=== PATIENT | male | born 1975 | race Hispanic/Latino ===

== ENCOUNTER 2019-03-22 10:02 | Observation (INO) | payer SELFPAY ==
[2019-03-22 10:53] LABS: Absolute Lymphocytes (CBC) 2.2 K/uL (0.7-4.9); Basophils % 0.7 % (0-1.3); Hematocrit 45.2 % (39.6-49.0); MPV 10.7 fL (7.6-11.3); RBC Red Blood Cell Count 5.03 M/uL (4.33-5.43)
--- NOTE | 2019-03-22 11:04 | RAD REPORT ---
EXAM DESCRIPTION: RAD - Chest Single View - 03/22/2019 10:59 am CLINICAL HISTORY: Chest pain COMPARISON: None. TECHNIQUE: AP portable chest image was obtained 1052 hours . FINDINGS: Lungs are clear. Heart and vasculature are normal. No measurable pleural effusion and no p neumothorax. No acute bony abnormality seen. No acute aortic findings suspected. IMPRESSION: No acute cardiopulmonary process.
--- NOTE | 2019-03-22 11:13 | ER ---
Nurse's Notes [facility] Name: Juwan Clements Age: 43 yrs Sex: Male : 1975 Arrival Date: 03/22/2019 Time: 10:06 Bed 17 Private MD: Diagnosis: Essential (primary) hypertension;Chest pain, unspecified Presentation: 03/22 10:15 Presenting complaint: Patient states: Intermittent Chest pressure/pain started jl7 yesterday, then started having nausea and a hard time swallowing about 10 min ago. Transition of care: patient was not received from another setting of care. Onset of symptoms was March 21, 2019. Risk Assessment: Do you want to hurt yourself or someone else? Patient reports no desire to harm self or others. Initial Sepsis Screen: Does the patient meet any 2 criteria? No. Patient's initial sepsis screen is negative. Does the patient have a suspected source of infection? No. Patient's initial sepsis screen is negative. Care prior to arrival: None. 10:15 Method Of Arrival: Ambulatory [facility] 10:15 Acuity: WALT 3 jl7 Triage Assessment: 10:24 General: Appears in no apparent distress. comfortable, Behavior is cooperative, bp appropriate for age, anxious. Pain: Complains of pain in chest. EENT: No deficits noted. Neuro: No deficits noted. Cardiovascular: Rhythm is sinus rhythm. Respiratory: No deficits noted. GI: No signs and/or symptoms were reported involving the gastrointestinal system. : No signs and/or symptoms were reported regarding the genitourinary system. Derm: No deficits noted. Musculoskeletal: No deficits noted. Historical: - Allergies: 10:18 No Known Allergies; jl7 - PMHx: 10:18 Hypertension; jl7 - PSHx: 10:18 None; jl7 - Immunization history:: Adult Immunizations unknown. - Social history:: Smoking status: unknown. - Ebola Screening: : No symptoms or risks identified at this time. - Family history:: not pertinent. Screenin:26 Abuse screen: Denies threats or abuse. Denies injuries from another. Nutritional bp screening: No deficits noted. Tuberculosis screening: No symptoms or risk factors identified. Fall Risk None identified. Assessment: 10:25 General: SEE TRIAGE NOTE. Pain: Pain does not radiate. Pain began 1 day ago. bp 11:25 Reassessment: DR OSMAN AT B/S FOR ADMIT. bp 13:00 Reassessment: ADMIT IN PROCESS, BED ASSIGNMENT PENDING. bp 14:30 Reassessment: ADMIT COMPLETED. bp Vital Signs: 10:14 BP 117 / 90; Pulse 84; Resp 16 S; Temp 98.5(O); Pulse Ox 97% on R/A; jl7 11:25 BP 119 / 61; Pulse 72; Resp 15; Pulse Ox 98% ; bp 12:30 BP 114 / 86; Pulse 72; Resp 18; Pulse Ox 98% ; bp 13:30 BP 112 / 91; Pulse 70; Resp 18; Pulse Ox 97% ; bp 14:30 BP 111 / 87; Pulse 67; Resp 22; Pulse Ox 98% ; bp ED Course: 10:06 Patient arrived in ED. am2 10:17 Triage completed. jl7 10:18 Arm band placed on right wrist. jl7 10:19 Jerzy Garcia MD is Attending Physician. erendira 10:24 Blas Milner, NEGRO is Primary Nurse. bp 10:26 Patient has correct armband on for positive identification. Bed in low position. Call bp light in reach. Side rails up X2. bus monitor on. Pulse ox on. NIBP on. 10:26 Patient maintains SpO2 saturation greater than 95% on room air. bp 10:37 Initial lab(s) drawn, by me, held in ED. Inserted saline lock: 20 gauge antecubital mh5 area, using aseptic technique. Blood collected. 10:40 sent to lab. 5 10:41 Basic Metabolic Panel Sent. 5 10:41 CBC with Diff Sent. 5 10:41 LFT's Sent. 5 10:41 Magnesium Sent. 5 10:41 NT PRO-BNP Sent. 5 10:41 PT-INR Sent. 5 10:41 Troponin (emerg Dept Use Only) Sent. 5 11:00 XRAY Chest (1 view) In Process Unspecified. EDMS 11:12 Jonnie Solitario MD is Hospitalizing Provider. erendira 14:47 No provider procedures requiring assistance completed. Patient admitted, IV remains in bp place. Administered Medications: 11:00 Drug: Aspirin 162 mg Route: PO; bp 11:46 Follow up: Response: No adverse reaction bp 11:00 Drug: Pepcid 20 mg Route: IVP; Site: right antecubital; bp 11:46 Follow up: Response: No adverse reaction bp 11:00 Drug: Lopressor 25 mg Route: PO; bp 11:46 Follow up: Response: No adverse reaction bp 11:45 Drug: D50W 25 ml Route: IVP; Site: right antecubital; bp Outcome: 11:12 Decision to Hospitalize by Provider. erendira 15:22 Admitted to Tele accompanied by tech, via wheelchair, Report called to cata grayson bp 15:22 Condition: stable 15:24 Patient left the ED. bp Signatures: Dispatcher [employer] EDJerzy Kingston MD MD cha Martinez, Maria 5 Miah Lynn RN RN [id number] Flory Patel Brian RN RN bp
--- NOTE | 2019-03-22 11:14 | EDPHYS ---
Physician Documentation [facility] Name: Juwan Clements Age: 43 yrs Sex: Male : 1975 Arrival Date: 03/22/2019 Time: 10:06 Bed 17 Private MD: ED Physician Jerzy Garcia HPI: 03/22 10:52 This 43 yrs old Male presents to ER via Ambulatory with complaints of Chest erendira Pressure, Difficulty Swallowing, Nausea, Anxiety. 10:52 The patient or guardian reports chest pain that is located primarily in the substernal erendira area, anterior chest wall, bilaterally. Onset: 1 day(s) ago. The pain does not radiate. Associated signs and symptoms: Pertinent positives: shortness of breath. The chest pain is described as a pressure. Modifying factors: The symptoms are alleviated by nothing. the symptoms are aggravated by nothing. Severity of pain: At its worst the pain was mild in the emergency department the pain is unchanged. The patient has not experienced similar symptoms in the past. Historical: - Allergies: 10:18 No Known Allergies; jl7 - PMHx: 10:18 Hypertension; jl7 - PSHx: 10:18 None; jl7 - Immunization history:: Adult Immunizations unknown. - Social history:: Smoking status: unknown. - Ebola Screening: : No symptoms or risks identified at this time. - Family history:: not pertinent. ROS: 10:52 Constitutional: Negative for fever, chills, and weight loss, Eyes: Negative for injury, erendira pain, redness, and discharge, ENT: Negative for injury, pain, and discharge, Neck: Negative for injury, pain, and swelling, Abdomen/GI: Negative for abdominal pain, nausea, vomiting, diarrhea, and constipation, Back: Negative for injury and pain, : Negative for injury, bleeding, discharge, and swelling, MS/Extremity: Negative for injury and deformity, Skin: Negative for injury, rash, and discoloration, Neuro: Negative for headache, weakness, numbness, tingling, and seizure, Psych: Negative for depression, anxiety, suicide ideation, homicidal ideation, and hallucinations, Allergy/Immunology: Negative for hives, rash, and allergies, Endocrine: Negative for neck swelling, polydipsia, polyuria, polyphagia, and marked weight changes, Hematologic/Lymphatic: Negative for swollen nodes, abnormal bleeding, and unusual bruising. 10:52 Constitutional: Positive for dysphagia. 10:52 Respiratory: Positive for shortness of breath. Exam: 10:52 Constitutional: This is a well developed, well nourished patient who is awake, alert, erendira and in no acute distress. Head/Face: Normocephalic, atraumatic. Eyes: Pupils equal round and reactive to light, extra-ocular motions intact. Lids and lashes normal. Conjunctiva and sclera are non-icteric and not injected. Cornea within normal limits. Periorbital areas with no swelling, redness, or edema. ENT: Nares patent. No nasal discharge, no septal abnormalities noted. Tympanic membranes are normal and external auditory canals are clear. Oropharynx with no redness, swelling, or masses, exudates, or evidence of obstruction, uvula midline. Mucous membranes moist. Neck: Trachea midline, no thyromegaly or masses palpated, and no cervical lymphadenopathy. Supple, full range of motion without nuchal rigidity, or vertebral point tenderness. No Meningismus. Chest/axilla: Normal chest wall appearance and motion. Nontender with no deformity. No lesions are appreciated. Cardiovascular: Regular rate and rhythm with a normal S1 and S2. No gallops, murmurs, or rubs. Normal PMI, no JVD. No pulse deficits. Respiratory: Lungs have equal breath sounds bilaterally, clear to auscultation and percussion. No rales, rhonchi or wheezes noted. No increased work of breathing, no retractions or nasal flaring. Abdomen/GI: Soft, non-tender, with normal bowel sounds. No distension or tympany. No guarding or rebound. No evidence of tenderness throughout. Back: No spinal tenderness. No costovertebral tenderness. Full range of motion. Skin: Warm, dry with normal turgor. Normal color with no rashes, no lesions, and no evidence of cellulitis. MS/ Extremity: Pulses equal, no cyanosis. Neurovascular intact. Full, normal range of motion. Neuro: Awake and alert, GCS 15, oriented to person, place, time, and situation. Cranial nerves II-XII grossly intact. Motor strength 5/5 in all extremities. Sensory grossly intact. Cerebellar exam normal. Normal gait. Psych: Awake, alert, with orientation to person, place and time. Behavior, mood, and affect are within normal limits. Vital Signs: 10:14 BP 117 / 90; Pulse 84; Resp 16 S; Temp 98.5(O); Pulse Ox 97% on R/A; jl7 11:25 BP 119 / 61; Pulse 72; Resp 15; Pulse Ox 98% ; bp 12:30 BP 114 / 86; Pulse 72; Resp 18; Pulse Ox 98% ; bp 13:30 BP 112 / 91; Pulse 70; Resp 18; Pulse Ox 97% ; bp 14:30 BP 111 / 87; Pulse 67; Resp 22; Pulse Ox 98% ; bp MDM: 10:19 Patient medically screened. [facility] [place] 10:52 Data reviewed: vital signs, nurses notes, lab test result(s), EKG, radiologic studies, erendira plain films. 03/22 10:39 Order name: Basic Metabolic Panel; Complete Time: 11:30 bp 03/22 10:39 Order name: CBC with Diff; Complete Time: 11:11 bp 03/22 10:39 Order name: LFT's; Complete Time: 11:30 bp 03/22 10:39 Order name: Magnesium; Complete Time: 11:30 bp 03/22 10:39 Order name: NT PRO-BNP; Complete Time: 11:30 bp 03/22 10:39 Order name: PT-INR; Complete Time: 11:11 bp 03/22 10:39 Order name: Troponin (emerg Dept Use Only); Complete Time: 11:30 bp 03/22 10:39 Order name: XRAY Chest (1 view); Complete Time: 11:11 bp 03/22 10:39 Order name: EKG; Complete Time: 10:41 bp 03/22 10:50 Order name: Lipase erendira 03/22 10:39 Order name: Cardiac monitoring; Complete Time: 10:40 bp 03/22 10:39 Order name: EKG - Nurse/Tech; Complete Time: 10:40 bp 03/22 10:39 Order name: IV Saline Lock; Complete Time: 10:40 bp 03/22 10:39 Order name: Labs collected and sent; Complete Time: 10:40 bp 03/22 10:39 Order name: O2 Per Protocol; Complete Time: 10:41 bp 03/22 10:39 Order name: O2 Sat Monitoring; Complete Time: 10:41 bp Administered Medications: 11:00 Drug: Aspirin 162 mg Route: PO; bp 11:46 Follow up: Response: No adverse reaction bp 11:00 Drug: Pepcid 20 mg Route: IVP; Site: right antecubital; bp 11:46 Follow up: Response: No adverse reaction bp 11:00 Drug: Lopressor 25 mg Route: PO; bp 11:46 Follow up: Response: No adverse reaction bp 11:45 Drug: D50W 25 ml Route: IVP; Site: right antecubital; bp Disposition: 03/22/19 11:12 Hospitalization ordered by Jonnie Solitario for Observation. Preliminary diagnosis are Essential (primary) hypertension, Chest pain, unspecified. - Bed requested for Telemetry/MedSurg (observation). - Status is Observation. bp - Condition is Stable. - Problem is new. - Symptoms have improved. UTI on Admission? No Signatures: Dispatcher [employer] EDKatie Navarro RN RN dw Jerzy Garcia MD MD cha Leal, Jahala RN RN jl7 Blas Milner RN RN bp Corrections: (The following items were deleted from the chart) 14:43 11:12 Hospitalization Ordered by Jonnie Solitario MD for Observation. Preliminary diagnosis dw is Essential (primary) hypertension; Chest pain, unspecified. Bed requested for Telemetry/MedSurg (observation). Status is Observation. Condition is Stable. Problem is new. Symptoms have improved. UTI on Admission? No. erendira 15:24 14:43 03/22/2019 11:12 Hospitalization Ordered by Jonnie Solitario MD for Observation. bp Preliminary diagnosis is Essential (primary) hypertension; Chest pain, unspecified. Bed requested for Telemetry/MedSurg (observation). Status is Observation. Condition is Stable. Problem is new. Symptoms have improved. UTI on Admission? No. dw
[2019-03-22 11:17] LABS: ALT/SGPT 53 U/L (12-78); AST/SGOT 32 U/L (15-37); Albumin 3.8 g/dL (3.4-5.0); Alkaline Phosphatase 91 U/L (45-117); BUN Blood Urea Nitrogen 16 mg/dL (7-18); Bicarbonate 26 mmol/L (21-32); Bilirubin Direct 0.2 mg/dL (0-0.2); Bilirubin Total 0.6 mg/dL (0.2-1.0); Glucose Level 68 mg/dL (74-106); Magnesium 2.4 mg/dL (1.8-2.4); NT PRO-BNP 7 pg/mL (<125); Potassium 3.7 mmol/L (3.5-5.1); Protein, Total 7.5 g/dL (6.4-8.2); Sodium Level 140 mmol/L (136-145); Troponin (Emerg Dept Use Only) < 0.02 ng/mL (0.0-0.045)
[2019-03-22] MEDS ORDERED: ASPIRIN EC 81 MG TAB PO ONE (11:19)
[2019-03-22] MEDS ORDERED: METOPROLOL TAR 25 MG TAB ONE (11:19)
[2019-03-22] MEDS ORDERED: FAMOTIDINE 20 MG/2 ML VIAL IV ONE (11:19)
[2019-03-22] MEDS ORDERED: D50W 25 GM/50 ML SYRINGE/VIAL IV ONE (11:51)
[2019-03-22] MEDS ORDERED: MORPHINE 4 MG/ML SYR IV PRN (15:38)
[2019-03-22] MEDS ORDERED: ACETAMINOPHEN 500 MG TAB PO PRN (15:38)
[2019-03-22 15:52] VITALS: BMI 30.5
[2019-03-22] MEDS: METOPROLOL TAR 25 MG TAB PO SCH ×2 (17:00→17:21)
[2019-03-22 20:44] VITALS: O2SAT 96
[2019-03-22] MEDS ORDERED: ATORVASTATIN 40 MG TAB PO SCH (21:00)
--- NOTE | 2019-03-22 21:38 | CON ---
Patient admitted on 03/22/[address] Solitario's service with shortness of breath, atypical chest pain. History Of Present Illness: Mr. Valenzuela is a 43-year-old male. He has a history of hypertension and anxiety. Recently was started on lisinopril. He also takes antianxiety medication. He came in most ly with shortness of breath with exertion. No true chest pain. Rare palpitations. Some nausea, but no vomiting. Denied PND, orthopnea, pedal edema, palpitations, or syncope. He has had some anxiety and stress issues. He denied any fever or chills or cough. Past Medical History: Otherwise negative. Allergies: NONE. Review of Systems: Negative. Social History: Negative. Family History: Noncontributory. Medications: Include lisinopril and Cymbalta. Physical Examination: Vital signs: Stable, afebrile. HEENT: Negative. Neck: Supple without any bruit, lymphadenopathy, JVD, or thyromegaly. Chest: Clear to auscultation and percussion. Cardiac: Revealed a regular rhythm and rate. No murmurs, gallops, or rubs. Abdomen: Benign. Extremities: Revealed no clubbing, cyanosis, or edema. Diagnostic Data: All within normal limit. Impression And Plan: 1.Atypical shortness of breath. 2.Anxiety. 3.Hypertension. I recommended an echocardiogram on Mr. Valenzuela to rule out a cardiomyopathy. I recommended a stress t est to rule out coronary artery disease. We will see what those shows prior to making any final deci abdirizak. I would continue his antianxiety medicine and lisinopril. MARLENE/MODL Voice ID: [id number] Report ID: [id number]
--- NOTE | 2019-03-23 02:41 | HP ---
Date of Admission: 03/22/2019 Chief Complaint: Chest tightness, shortness of breath. Primary Care Physician: Sis Allen. History Of Present Illness: Patient is a 43-year-old male with past medical history of hypertension, major depressive disorder, who was in his usual state of health until day prior to admission when th e patient had sudden onset of chest tightness associated with some shortness of breath. No nausea, v omiting, diaphoresis, or palpitations. The patient's symptoms not improve. No significant alleviati ng factors or aggravating factors. Patient's symptoms are constant, moderate, progressively worsenin g, therefore, he came into the ER for further evaluation. In the ER, his EKG was negative cardiac en zymes. Initial troponin level was negative. Patient was then given aspirin, Pepcid, metoprolol, and then referred for admission. When seen in the ER, he was awake, alert, oriented x3, in some mild di stress. Past Medical History: Hypertension, major depressive disorder. Past Surgical History: None. Allergies: NO KNOWN DRUG ALLERGIES. Medications: Citalopram and lisinopril. Social History: The patient does not smoke. Last drink was 1 month ago. No illicit drug use. Danitza ent is , works is gainfully employed. Family History: States his father and his grandfather on the paternal side both of [place] in their 60s and 80s respectively. Review of Systems: Ten-point system reviewed, negative except as per HPI. Physical Examination: Vital Signs: Temperature 98.5, heart rate 84, blood pressure 117/90, respirations 16, O2 97% on room air. General: Awake, alert, oriented x3, in mild distress. Obese male. HEENT: Normocephalic, atraumatic. PERRLA. EOMI. Moist mucous membranes. Oropharynx is clear. No rmal dentition. Conjunctivae anicteric. Neck: Supple. No JVD. Trachea midline. CV: S1, S2. Regular rate and rhythm. Peripheral pulses present. Respiratory: Moving air well bilaterally. No wheezing or stridor. No use of accessory muscles. Gastrointestinal: Abdomen is soft, nontender, nondistended. Positive bowel sounds. No guarding or rigidity. Extremities: No clubbing, cyanosis, or edema. No calf tenderness. Neuro: Cranial nerves 2 through 12 intact grossly. No focal neurological deficits. Speech is rich l. Skin: No rashes. Normal skin turgor. Psych: Mood is okay. Affect is congruent with mood. Insight and judgment are good. Laboratory Data: Sodium 140, potassium 3.7, chloride 108, CO2 26, BUN 16, creatinine 1.2, glucose 68 , calcium 8.7, magnesium 2.4. Troponin less than 0.02. Lipase 159. INR 1. WBC 6.7, H and H 15.7 a nd 45.2, platelets 177. Chest x-ray personally reviewed shows no acute cardiopulmonary process. Assessment: A 43-year-old male with: 1.Chest pain. Patient has hypertension, history of heart disease, HEART score of 4. We will observ e patient and rule out ACS. We will start on chest pain guidelines. Consult Cardiology. Obtain ech ocardiogram. 2.Essential hypertension. Resume home medications as appropriate. 3.Major depressive disorder. We will continue SSRI. 4.Obesity, BMI 30. Plan: [facility]. /NATALIIA Voice ID: [id number]
[2019-03-23 03:22] LABS: Absolute Lymphocytes (CBC) 3.1 K/uL (0.7-4.9); Basophils % 0.6 % (0-1.3); Hematocrit 45.1 % (39.6-49.0); Lymphocytes % 33.3 % (15.3-44.8); MPV 10.6 fL (7.6-11.3); RBC Red Blood Cell Count 4.97 M/uL (4.33-5.43)
[2019-03-23 03:48] LABS: Potassium 3.8 mmol/L (3.5-5.1)
[2019-03-23] MEDS: METOPROLOL TAR 25 MG TAB PO SCH (05:03)
[2019-03-23] MEDS ORDERED: CITALOPRAM 10 MG TABLET PO SCH (09:00)
[2019-03-23] MEDS ORDERED: lisinopriL 10 MG TAB PO SCH (09:00)
[2019-03-23] MEDS ORDERED: ASPIRIN EC 81 MG TAB PO SCH (09:00)
[2019-03-23] MEDS: ENOXAPARIN 40 MG/0.4 ML SQ SCH ×2 (09:00→10:55)
--- NOTE | 2019-03-23 10:37 | RAD REPORT ---
EXAM DESCRIPTION: NM - Rest Stress Cardiac Imaging - 03/23/2019 10:30 am CLINICAL HISTORY: CP Chest pain. COMPARISON: No comparisons TECHNIQUE: The patient was administered approximately 10mCi of Tc 99m Sestamibi prior to resting SPE CT imaging of the heart. The patient was then administered approximately 30 mCi of Tc 99m Sestamibi f ollowing exercise or pharmacologic stress. Multiplanar SPECT images were reviewed. FINDINGS: No stress induced ischemic defect is seen to suggest stress induced ischemia. No fixed def ect is seen to suggest hibernating myocardium or scarred myocardium. The end diastolic volume is 69 ml, the end systolic volume is 34 ml, and the ejection fraction is 51 %. IMPRESSION: No stress induced ischemia.
--- NOTE | 2019-03-23 10:41 | ECHO ---
HEIGHT: 5 ft 7 in WEIGHT: 194 lb 14.4 oz DATE OF STUDY: 03/23/[address]: Jonnie Solitario MD 2-DIMENSIONAL: YES M.MODE: YES DOPPLER: YES COLOR FLOW: YES TDS: NO PORTABLE: NO DEFINITY: NO BUBBLE STUDY: NO DIAGNOSIS: CHEST PAIN CARDIAC HISTORY: CATHERIZATION: NO SURGERY: NO PROSTHETIC VALVE: NO PACEMAKER: NO MEASUREMENTS (cm) DIASTOLIC (NORMALS) SYSTOLIC (NORMALS) IVSd 0.9 (0.6-1.2) LA Diam 3.3 (1.9-4.0) LVEF 58% LVIDd 4.0 (3.5-5.7) LVIDs 2.8 (2.0-3.5) %FS 30% LVPWd 0.8 (0.6-1.2) Ao Diam 2.7 (2.0-3.7) 2 DIMENSIONAL ASSESSMENT: RIGHT ATRIUM: NORMAL LEFT ATRIUM: NORMAL RIGHT VENTRICLE: NORMAL LEFT VENTRICLE: NORMAL TRICUSPID VALVE: NORMAL MITRAL VALVE: NORMAL PULMONIC VALVE: NORMAL AORTIC VALVE: NORMAL PERICARDIAL EFFUSION: NONE AORTIC ROOT: NORMAL LEFT VENTRICULAR WALL MOTION: NORMAL DOPPLER/COLOR FLOW: NORMAL. COMMENTS: NORMAL 2D ECHO WITH DOPPLER. TECHNOLOGIST: MARY BETH JULES
--- NOTE | 2019-03-23 10:42 | EKG ---
Test Date: 2019-03-22 Test Time: 10:25:47 Senior Sales Manager: JOSE ALEJANDRO MEASUREMENT RESULTS: Intervals: Rate: 67 ME: 178 QRSD: 82 QT: 356 QTc: 376 [place]: P: 43 ME: 178 QRS: 55 T: 43 INTERPRETIVE STATEMENTS: Normal sinus rhythm normal ECG No previous ECG available for comparison Electronically Signed On 03-23-19 10:41:28 SOLE ASSESSOR by Sukhwinder Lynch
--- NOTE | 2019-03-23 10:47 | TREADMILL ---
70% H.R.: 124 85% H.R.: 150 90% H.R.: 159 100% H.R.: 177 DX: CHEST PAIN Date of Study: 03/23/19 Ht: 5 7 Wt: 194 lb 14.4 oz Consulting Physician: MADISON MEDICATIONS: TYLENOL, ASPIRIN, LIPITOR, LOVENOX, CELEXA, PRINIVIL, LOPRESSOR HISTORY: 43 YEAR OLD MALE WITH HISTORY OF HYPERTENSION. COMPLAINTS OF CHEST PRESSURE AND NAUSEA PHYSICIAL EXAMINATION: RESTING B.P.: 122/94 RESTING H.R.: 84 RESTING EKG: NORMAL SINUS RHYTHM PROTOCOL: KATHIE CARDIOLITE EXERCISE TIME: 8:08 MAXIMUM HEART RATE: 179 114 % OF PREDICTED B.P. AT PEAK STRESS: 147/96 H.R. AT 1 MINUTE POST EXERCISE: 153 IMPRESSION: STOPPED FOR TARGET HEART RATE, FATIGUE AND SHORTNESS OF BREATH. NO ARRHYTHMIA NOTED. PATIENT DENIED CHEST PAIN. TOLERATED WELL. NO ST DEPRESSION, NO ARRHYTHMIA, NORMAL STRESS TEST.
[2019-03-23 13:39] VITALS: BP 121/83; TEMP 97.2
--- NOTE | 2019-03-24 03:33 | DS ---
Date of Discharge: 03/23/2019 Consultants: 1.Dr. Lynch, Cardiology. 2.Dr. Amaro, Cardiology. Procedures: Cardiac stress test on 03/23/2019. No stress-induced ischemia. Discharge Diagnoses: 1.Chest pain, acute coronary syndrome ruled out. 2.Essential hypertension, stable. 3.Major depressive disorder, on SSRI. 4.Obesity, body mass index 30. Hospital Course: Patient is a 43-year-old male with past medical history of depression, hypertension , comes in with chest tightness and shortness of breath. Patient was admitted to the hospital for fu rther evaluation. His cardiac enzymes were negative x3. ACS was ruled out. Lipid panel was normal, did show some low HDL at 38. Patient was seen by Cardiology and echocardiogram as well as stress te st was done. Stress test was negative for any stress-induced ischemia. His ejection fraction was 58 %. Patient's symptoms improved, may have been secondary to anxiety with depression versus possible G I-related issues. Patient was cleared for discharge. He needs to follow up with primary care physic ivon in 2-3 days. Will need GI workup to rule out GI causes of atypical chest pain. Follow up with c ardiologist, Dr. Lynch, in 2 weeks. Return to ER for worsening condition. Diet: Heart-healthy, calorie-restricted diet. Activity: As tolerated. Medications: As per medication reconciliation list. Physical Examination: General: Awake, alert, oriented x3, obese male. CV: S1, S2. Respiratory: Moving air well bilaterally. Abdomen: Soft, nontender, nondistended. Positive bowel sounds. Extremities: No clubbing, cyanosis, edema. Neuro: Nonfocal. SA/MODL Voice ID: [id number] Report ID: [id number]
== END 2019-03-23 12:07 | disposition home or self-care (01) ==
LOC: ER 10:02 → ERHOLD 11:33 → 2ND 15:19
PROVIDERS: ADMIT Family Medicine; ATTEND Family Medicine
DX: R07.9 Chest pain, unspecified (principal); I10 Essential (primary) hypertension; F32.9 Major depressive disorder, single episode, unspecified; E66.9 Obesity, unspecified; Z68.30 Body mass index [BMI] 30.0-30.9, adult
CPT/HCPCS: 36415; 71045; 78452; 80048; 80061; 80076; 83690; 83735; 83880; 84484; 85025; 85610; 93005; 93017; 93306; 94760; 96374; 96375; 99285; A9500; G0378; J1650

== ENCOUNTER 2019-07-02 00:29 | Emergency (ER) | payer SELFPAY ==
[2019-07-02] MEDS ORDERED: predniSONE 20 MG TAB ONE (01:05)
[2019-07-02] MEDS ORDERED: AMOX/K CLAV 875 MG TAB ONE (01:06)
--- NOTE | 2019-07-02 01:50 | ER ---
Nurse's Notes [facility] Name: Juwan Clements Age: 43 yrs Sex: Male : 1975 Arrival Date: 07/02/2019 Time: 00:31 Bed 5 Private MD: Diagnosis: Acute pharyngitis;Dyspnea Presentation: 07/01 00:40 Chief complaint: Patient states: sudden Difficulty of breathing at around 2330H. I feel rr5 like anxiety attack. I took citalopram and lisinopril as my regular medicines. denies fever, cough or pain. 00:40 Coronavirus screen: Patient denies fever greater than 100.4F, cough, shortness of rr5 breath, or difficulty breathing. Proceed with normal triage process. Ebola Screen: Patient negative for fever greater than or equal to 101.5 degrees Fahrenheit, and additional compatible Ebola Virus Disease symptoms Patient denies exposure to infectious person. Patient denies travel to an Ebola-affected area in the 21 days before illness onset. Initial Sepsis Screen: Does the patient meet any 2 criteria? No. Patient's initial sepsis screen is negative. Does the patient have a suspected source of infection? No. Patient's initial sepsis screen is negative. Risk Assessment: Do you want to hurt yourself or someone else? Patient reports no desire to harm self or others. Onset of symptoms was July 01, 2019 at 23:30. 00:40 Method Of Arrival: Ambulatory rr5 00:40 Acuity: WALT 4 rr5 01:01 Chief complaint: EMS states: COMPLAINING OF ABDOMINAL PAIN, NAUSEA, VOMITING, AND rv DIARRHEA. WITH HISTORY OF DIVERTICULITIS. PAIN DESCRIBED BLOATEDNESS, 2/10 PAIN SCALE UPON ARRIVAL. GIVEN ZOFRAN BY EMT. Coronavirus screen: Patient denies fever greater than 100.4F, cough, shortness of breath, or difficulty breathing. Proceed with normal triage process. Ebola Screen: No symptoms or risks identified at this time. Initial Sepsis Screen: Does the patient meet any 2 criteria? No. Patient's initial sepsis screen is negative. Does the patient have a suspected source of infection? No. Patient's initial sepsis screen is negative. Risk Assessment: Do you want to hurt yourself or someone else? Patient reports no desire to harm self or others. Onset of symptoms was July 01, 2019 at 21:00. 01:01 Method Of Arrival: EMS: [facility] rv 01: Acuity: WALT 3 rv Triage Assessment: 00:40 General: Appears in no apparent distress. comfortable, Behavior is calm, cooperative, rr5 appropriate for age. Respiratory: Onset: The symptoms/episode began/occurred suddenly, the patient has mild shortness of breath. Historical: - Allergies: 00:40 No Known Allergies; rr5 01:04 No Known Allergies; rv - Home Meds: 00:40 citalopram oral [Active]; Lisinopril Oral [Active]; rr5 - PMHx: 00:40 Hypertension; Anxiety; rr5 01:04 Diabetes - NIDDM; Hyperlipidemia; Hypertension; neuropathy; rv - PSHx: 00:40 None; rr5 01:04 None; rv - Immunization history:: Adult Immunizations not up to date, Adult Immunizations up to date. - Social history:: Smoking status: unknown Patient uses alcohol, occasionally. Patient/guardian denies using street drugs, tobacco products, Smoking status: Patient/guardian denies using tobacco, the patient reports quitting approximately 30 years ago. - Family history:: not pertinent. Screenin:46 Abuse screen: Denies threats or abuse. Denies injuries from another. Nutritional rr5 screening: No deficits noted. Tuberculosis screening: No symptoms or risk factors identified. Fall Risk None identified. Total Pardo Fall Scale indicates No Risk (0-24 pts). Assessment: 00:40 General: Appears in no apparent distress. comfortable, Behavior is calm, cooperative, rr5 appropriate for age. 00:40 Pain: Denies pain. Neuro: Level of Consciousness is awake, alert, obeys commands, rr5 Oriented to person, place, time, situation, Appropriate for age. Cardiovascular: Capillary refill < 3 seconds Patient's skin is warm and dry. Rhythm is regular. Respiratory: Airway is patent Respiratory effort is even, unlabored, Respiratory pattern is regular, symmetrical, Breath sounds are clear bilaterally. GI: No signs and/or symptoms were reported involving the gastrointestinal system. : No signs and/or symptoms were reported regarding the genitourinary system. EENT: Throat is clear with gag reflex present. Derm: Skin is intact, is healthy with good turgor, Skin temperature is warm. Musculoskeletal: Circulation, motion, and sensation intact. Capillary refill < 3 seconds. 00:40 Respiratory: Reports sudden . rr5 Vital Signs: 00:40 BP 134 / 81; Pulse 80; Resp 19; Temp 98.6; Pulse Ox 99% ; Weight 86.18 kg; Height 5 ft. rr5 6 in. (167.64 cm); Pain 0/10; 01:00 BP 132 / 113; Pulse 75; Resp 18; Pulse Ox 98% ; rr5 01:01 BP 160 / 64; Pulse 80; Resp 19; Temp 99; Pulse Ox 98% ; Weight 90.72 kg; Height 5 ft. 9 rv in. (175.26 cm); Pain 2/10; 01:51 BP 129 / 90; Pulse 75; Resp 16; Temp 98.5; Pulse Ox 100% ; rr5 02:35 BP 121 / 84; Pulse 80; Resp 18; Temp 98.4; Pulse Ox 100% on R/A; rv 01:01 Body Mass Index 29.53 (90.72 kg, 175.26 cm) rv ED Course: 00:31 Patient arrived in ED. do 00:32 Vikram Reyes, NEGRO is Primary Nurse. rr5 00:36 Jerzy Garcia MD is Attending Physician. erendira 00:44 Triage completed. rr5 00:44 Arm band placed on right wrist. rr5 00:46 Patient has correct armband on for positive identification. Bed in low position. Call rr5 light in reach. Pulse ox on. NIBP on. 01:40 Chest Single View XRAY In Process Unspecified. EDMS 02:36 No provider procedures requiring assistance completed. Patient did not have IV access rv during this emergency room visit. Administered Medications: 01:03 Drug: predniSONE 40 mg Route: PO; rr5 02:35 Follow up: Response: No adverse reaction rv 01:03 Drug: Augmentin 875 mg Route: PO; rr5 02:35 Follow up: Response: No adverse reaction rv Outcome: 01:49 Discharge ordered by . erendira 02:36 Discharged to home ambulatory. rv 02:36 Condition: good 02:36 Discharge instructions given to patient, Instructed on discharge instructions, follow up and referral plans. medication usage, Demonstrated understanding of instructions, follow-up care, medications, Prescriptions given X 3. 02:36 Patient left the ED. rv Signatures: Dispatcher [employer] EDMS Jerzy Garcia MD MD cha Ogletree Beverly Oneal, Marcell, RN RN rv Reyes, NEGRO Sue RN rr5
--- NOTE | 2019-07-02 01:50 | EDPHYS ---
Physician Documentation [facility] Name: Juwan Clements Age: 43 yrs Sex: Male : 1975 Arrival Date: 07/02/2019 Time: 00:31 Bed 5 Private MD: ED Physician Jerzy Garcia HPI: 07/01 00:58 This 43 yrs old Male presents to ER via Ambulatory with complaints of erendira Breathing Difficulty, Sore Throat. 00:58 The patient has shortness of breath at rest, with light activity. Onset: The erendira symptoms/episode began/occurred 1 day(s) ago. 00:58 The patient presents with sore throat. The patient describes throat pain as raw, erendira scratchy. The patient's shortness of breath has no apparent modifying factors. Severity of symptoms: At their worst the symptoms were mild, in the emergency department the symptoms are unchanged. Severity of symptoms: At their worst the symptoms were mild moderate in the emergency department the symptoms are unchanged. The patient or guardian reports cough, described as mild, difficulty breathing. Historical: - Allergies: 00:40 No Known Allergies; rr5 01:04 No Known Allergies; rv - Home Meds: 00:40 citalopram oral [Active]; Lisinopril Oral [Active]; rr5 - PMHx: 00:40 Hypertension; Anxiety; rr5 01:04 Diabetes - NIDDM; Hyperlipidemia; Hypertension; neuropathy; rv - PSHx: 00:40 None; rr5 01:04 None; rv - Immunization history:: Adult Immunizations not up to date, Adult Immunizations up to date. - Social history:: Smoking status: unknown Patient uses alcohol, occasionally. Patient/guardian denies using street drugs, tobacco products, Smoking status: Patient/guardian denies using tobacco, the patient reports quitting approximately 30 years ago. - Family history:: not pertinent. ROS: 00:58 Constitutional: Negative for fever, chills, and weight loss, Eyes: Negative for injury, erendira pain, redness, and discharge, Neck: Negative for injury, pain, and swelling, Cardiovascular: Negative for chest pain, palpitations, and edema, Abdomen/GI: Negative for abdominal pain, nausea, vomiting, diarrhea, and constipation, Back: Negative for injury and pain, : Negative for injury, bleeding, discharge, and swelling, MS/Extremity: Negative for injury and deformity, Skin: Negative for injury, rash, and discoloration, Neuro: Negative for headache, weakness, numbness, tingling, and seizure, Psych: Negative for depression, anxiety, suicide ideation, homicidal ideation, and hallucinations, Allergy/Immunology: Negative for hives, rash, and allergies, Endocrine: Negative for neck swelling, polydipsia, polyuria, polyphagia, and marked weight changes, Hematologic/Lymphatic: Negative for swollen nodes, abnormal bleeding, and unusual bruising. 00:58 ENT: Positive for sore throat. 00:58 Respiratory: Positive for shortness of breath. Exam: 00:58 Constitutional: This is a well developed, well nourished patient who is awake, alert, erendira and in no acute distress. Head/Face: Normocephalic, atraumatic. Eyes: Pupils equal round and reactive to light, extra-ocular motions intact. Lids and lashes normal. Conjunctiva and sclera are non-icteric and not injected. Cornea within normal limits. Periorbital areas with no swelling, redness, or edema. Neck: Trachea midline, no thyromegaly or masses palpated, and no cervical lymphadenopathy. Supple, full range of motion without nuchal rigidity, or vertebral point tenderness. No Meningismus. Chest/axilla: Normal chest wall appearance and motion. Nontender with no deformity. No lesions are appreciated. Cardiovascular: Regular rate and rhythm with a normal S1 and S2. No gallops, murmurs, or rubs. Normal PMI, no JVD. No pulse deficits. Respiratory: Lungs have equal breath sounds bilaterally, clear to auscultation and percussion. No rales, rhonchi or wheezes noted. No increased work of breathing, no retractions or nasal flaring. Abdomen/GI: Soft, non-tender, with normal bowel sounds. No distension or tympany. No guarding or rebound. No evidence of tenderness throughout. Back: No spinal tenderness. No costovertebral tenderness. Full range of motion. Male : Normal genitalia with no discharge or lesions. Skin: Warm, dry with normal turgor. Normal color with no rashes, no lesions, and no evidence of cellulitis. MS/ Extremity: Pulses equal, no cyanosis. Neurovascular intact. Full, normal range of motion. Neuro: Awake and alert, GCS 15, oriented to person, place, time, and situation. Cranial nerves II-XII grossly intact. Motor strength 5/5 in all extremities. Sensory grossly intact. Cerebellar exam normal. Normal gait. Psych: Awake, alert, with orientation to person, place and time. Behavior, mood, and affect are within normal limits. 00:58 ENT: Posterior pharynx: Airway: normal, no evidence of obstruction, Tonsils: bilaterally enlarged, with erythema, Uvula: midline, edematous, erythema, swelling, that is mild, erythema, that is mild, exudate, is not appreciated, peritonsillar mass, is not appreciated, pooling of secretions, is not appreciated. Vital Signs: 00:40 BP 134 / 81; Pulse 80; Resp 19; Temp 98.6; Pulse Ox 99% ; Weight 86.18 kg; Height 5 ft. rr5 6 in. (167.64 cm); Pain 0/10; 01:00 BP 132 / 113; Pulse 75; Resp 18; Pulse Ox 98% ; rr5 01:01 BP 160 / 64; Pulse 80; Resp 19; Temp 99; Pulse Ox 98% ; Weight 90.72 kg; Height 5 ft. 9 rv in. (175.26 cm); Pain 2/10; 01:51 BP 129 / 90; Pulse 75; Resp 16; Temp 98.5; Pulse Ox 100% ; rr5 02:35 BP 121 / 84; Pulse 80; Resp 18; Temp 98.4; Pulse Ox 100% on R/A; rv 01:01 Body Mass Index 29.53 (90.72 kg, 175.26 cm) rv MDM: 00:36 Patient medically screened. [facility] 01:01 Data reviewed: vital signs, nurses notes. [facility] 07/01 00:55 Order name: Strep [facility] 07/01 00:55 Order name: Influenza Screen (a \T\ B) [facility] 07/01 00:55 Order name: Chest Single View XRAY [facility] 07/01 01:56 Order name: Throat Culture [facility]AL 07/01 01:11 Order name: Blood Glucose Level; Complete Time: 01:[address] [facility] Administered Medications: 01:03 Drug: predniSONE 40 mg Route: PO; rr5 02:35 Follow up: Response: No adverse reaction rv 01:03 Drug: Augmentin 875 mg Route: PO; rr5 02:35 Follow up: Response: No adverse reaction rv Disposition: 07/02/19 01:49 Discharged to Home. Impression: Acute pharyngitis, Dyspnea. - Condition is Stable. - Discharge Instructions: Pharyngitis, Shortness of Breath, Shortness of Breath, [id number], Pharyngitis, Eowd-mv-[id number], Sore Throat, Nnns-vn-Cgqy. - Prescriptions for Augmentin 875- 125 mg Oral Tablet - take 1 tablet by ORAL route every 12 hours for 10 days; 20 tablet. Neeru- D 12 Hour 60-120 mg Oral Tablet Sustained Release 12 hr - take 1 tablet by ORAL route every 12 hours As needed; 14 tablet. Medrol (Marcus) 4 mg Oral Tablets, Dose Pack - take 1 tablet by ORAL route as directed - follow package instructions; 1 packet. - Medication Reconciliation Form, Thank You Letter, Antibiotic Education, Prescription Opioid Use form. - Follow up: Private Physician; When: 2 - 3 days; Reason: Recheck today's complaints, Continuance of care, Re-evaluation by your physician. - Problem is new. - Symptoms have improved. Signatures: Dispatcher [employer] EDAL Jerzy Garcia MD MD cha Vicente, Ronaldo, RN RN Vikram Terrell RN RN rr5 Corrections: (The following items were deleted from the chart) 02:36 01:49 07/02/2019 01:49 Discharged to Home. Impression: Acute pharyngitis; Dyspnea. rv Condition is Stable. Discharge Instructions: Pharyngitis, Shortness of Breath, Shortness of Breath, Wefx-uu-[id number], Pharyngitis, Ficv-ed-Miko, Sore Throat, Ewrc-yg-Rdjw. Prescriptions for Augmentin 875-125 mg Oral Tablet - take 1 tablet by ORAL route every 12 hours for 10 days; 20 tablet, Neeru-D 12 Hour 60-120 mg Oral Tablet Sustained Release 12 hr - take 1 tablet by ORAL route every 12 hours As needed; 14 tablet, Medrol (Marcus) 4 mg Oral Tablets, Dose Pack - take 1 tablet by ORAL route as directed - follow package instructions; 1 packet. and Forms are Medication Reconciliation Form, Thank You Letter, Antibiotic Education, Prescription Opioid Use. Follow up: Private Physician; When: 2 - 3 days; Reason: Recheck today's complaints, Continuance of care, Re-evaluation by your physician. Problem is new. Symptoms have improved. erendira
--- NOTE | 2019-07-02 07:02 | RAD REPORT ---
EXAM DESCRIPTION: RAD - Chest Single View - 07/02/2019 1:14 am CLINICAL HISTORY: COUGH, difficulty breathing COMPARISON: Portable March 22, 2019 TECHNIQUE: AP portable chest image was obtained 07/02/2019 1:14 am . FINDINGS: Lung volumes are low. No peripheral mass, consolidation or pulmonary edema. Heart and vasc ulature are normal. No measurable pleural effusion and no pneumothorax. No acute bony abnormality see n. No acute aortic findings suspected. IMPRESSION: No acute cardiopulmonary process. No significant changes from the prior study.
[2019-07-02 09:33] VITALS: O2SAT 100
[2019-07-02 09:36] VITALS: BP 121/84; TEMP 98.4
== END 2019-07-02 02:36 | disposition home or self-care (01) ==
LOC: ER 00:29
DX: J02.9 Acute pharyngitis, unspecified (principal); R06.00 Dyspnea, unspecified; I10 Essential (primary) hypertension; F41.9 Anxiety disorder, unspecified
CPT/HCPCS: 71045; 82947; 87070; 87081; 87804; 99284; J7512

== ENCOUNTER 2019-10-30 22:52 | Emergency (ER) | payer SELFPAY ==
--- NOTE | 2019-10-30 23:32 | EDPHYS ---
Physician Documentation [facility] Name: Juwan Clements Age: 44 yrs Sex: Male : 1975 Arrival Date: 10/30/2019 Time: 22:54 Bed 26 Private MD: ED Physician Albino Andrade HPI: 10/29 23:21 This 44 yrs old Male presents to ER via Ambulatory with complaints of Anxiety. mh7 23:21 The patient presents to the emergency department with anxiety, over unknown mh7 circumstances. 23:22 Onset: The symptoms/episode began/occurred today. Past psychiatric history: Prior mh7 diagnosis: Anxiety, Psychiatric medications include: Celjayla, Primary psychiatric physician: the patient has not had a prior suicide gesture, the patient does not have a previous inpatient psychiatric history, the patient's last psychiatric treatment was. Associated signs and symptoms: Pertinent positives; anxiety, Pertinent negatives: abdominal pain, chest pain, chills, delusions, depression, fever, hallucinations, headache, homicidal ideation, nausea, night sweats, palpitations, paranoia, shortness of breath, substance abuse, suicide ideation, tremor, vomiting. Severity of symptoms: At their worst the symptoms were moderate today, in the emergency department the symptoms have resolved and did so just prior to arrival. The patient has experienced similar episodes in the past, multiple times. Patient states that he had flare up of his anxiety today. He states that he did not take his Citalopram for the past 2 days because he drank a beer and did not want to mix alcohol with his medication. He denies any headache, chest pain, abdominal pain, SOB, fever, cough, nausea, vomiting, numbness/tingling, or weakness.. Historical: - Allergies: 22:56 No Known Allergies; sg - Home Meds: 23:03 citalopram oral [Active]; lisinopril Oral [Active]; sg - PMHx: 22:56 Anxiety; Hypertension; sg - PSHx: 22:56 None; sg - Immunization history:: Adult Immunizations not up to date. - Social history:: Smoking status: Patient denies any tobacco usage or history of. ROS: 23:22 Constitutional: Negative for fever, chills, and weight loss, Eyes: Negative for injury, mh7 pain, redness, and discharge, ENT: Negative for injury, pain, and discharge, Neck: Negative for injury, pain, and swelling, Cardiovascular: Negative for chest pain, palpitations, and edema, Respiratory: Negative for shortness of breath, cough, wheezing, and pleuritic chest pain, Abdomen/GI: Negative for abdominal pain, nausea, vomiting, diarrhea, and constipation, Back: Negative for injury and pain, : Negative for injury, bleeding, discharge, and swelling, MS/Extremity: Negative for injury and deformity, Skin: Negative for injury, rash, and discoloration, Neuro: Negative for headache, weakness, numbness, tingling, and seizure, Allergy/Immunology: Negative for hives, rash, and allergies, Endocrine: Negative for neck swelling, polydipsia, polyuria, polyphagia, and marked weight changes, Hematologic/Lymphatic: Negative for swollen nodes, abnormal bleeding, and unusual bruising. Exam: 23:22 Constitutional: This is a well developed, well nourished patient who is awake, alert, mh7 and in no acute distress. Head/Face: Normocephalic, atraumatic. Eyes: Pupils equal round and reactive to light, extra-ocular motions intact. Lids and lashes normal. Conjunctiva and sclera are non-icteric and not injected. Cornea within normal limits. Periorbital areas with no swelling, redness, or edema. ENT: Nares patent. No nasal discharge, no septal abnormalities noted. Tympanic membranes are normal and external auditory canals are clear. Oropharynx with no redness, swelling, or masses, exudates, or evidence of obstruction, uvula midline. Mucous membranes moist. Neck: Trachea midline, no thyromegaly or masses palpated, and no cervical lymphadenopathy. Supple, full range of motion without nuchal rigidity, or vertebral point tenderness. No Meningismus. Chest/axilla: Normal chest wall appearance and motion. Nontender with no deformity. No lesions are appreciated. Cardiovascular: Regular rate and rhythm with a normal S1 and S2. No gallops, murmurs, or rubs. Normal PMI, no JVD. No pulse deficits. Respiratory: Lungs have equal breath sounds bilaterally, clear to auscultation and percussion. No rales, rhonchi or wheezes noted. No increased work of breathing, no retractions or nasal flaring. Abdomen/GI: Soft, non-tender, with normal bowel sounds. No distension or tympany. No guarding or rebound. No evidence of tenderness throughout. Back: No spinal tenderness. No costovertebral tenderness. Full range of motion. Skin: Warm, dry with normal turgor. Normal color with no rashes, no lesions, and no evidence of cellulitis. MS/ Extremity: Pulses equal, no cyanosis. Neurovascular intact. Full, normal range of motion. Neuro: Awake and alert, GCS 15, oriented to person, place, time, and situation. Cranial nerves II-XII grossly intact. Motor strength 5/5 in all extremities. Sensory grossly intact. Cerebellar exam normal. Normal gait. Psych: Awake, alert, with orientation to person, place and time. Behavior, mood, and affect are within normal limits. Vital Signs: 22:57 BP 121 / 84; Pulse 58; Resp 18 S; Temp 97.7; Pulse Ox 100% on R/A; Weight 73.48 kg; sg Height 5 ft. 7 in. (170.18 cm); Pain 5/10; 23:38 BP 128 / 84; Pulse 55; Resp 16; Pulse Ox 100% on R/A; Pain 0/10; ls4 22:57 Body Mass Index 25.37 (73.48 kg, 170.18 cm) sg MDM: 23:20 Patient medically screened. [facility] 23:22 Differential diagnosis: drug withdrawal. Anxiety, Alcohol Abuse. Data reviewed: vital [facility] signs, nurses notes. Data interpreted: Pulse oximetry: on room air is 100 %. Interpretation: normal. Counseling: I had a detailed discussion with the patient and/or guardian regarding: the historical points, exam findings, and any diagnostic results supporting the discharge/admit diagnosis, the need for outpatient follow up, to return to the emergency department if symptoms worsen or persist or if there are any questions or concerns that arise at home. Response to treatment: the patient's symptoms have resolved after treatment, the patient's blood pressure is in an acceptable range, mental status has returned to baseline, the patient no longer shows bradycardia, the patient is not short of breath, the patient is not tachycardic, the patient's pain is gone, the patient's temperature has normalized, the patient's condition has returned to base line, the patient is now symptom free. Refusal of service: The patient/guardian displays adequate decision making capability and despite a detailed discussion of alternatives, benefits, risks, and consequences refuses: all lab tests, Medications. Administered Medications: No medications were administered Disposition: 10/30/19 23:31 Discharged to Home. Impression: Anxiety. - Condition is Stable. - Discharge Instructions: Generalized Anxiety Disorder. - Medication Reconciliation Form, Thank You Letter, Antibiotic Education, Prescription Opioid Use form. - Follow up: Private Physician; When: 2 - 3 days; Reason: Worsening of condition, Recheck today's complaints, Continuance of care, Re-evaluation by your physician. - Problem is an acute exacerbation. - Symptoms are resolved. Signatures: Phillip Dewey RN RN sg Soo Jessica RN RN ls4 Albino Andrade MD MD mh7 Corrections: (The following items were deleted from the chart) 23:39 23:31 10/30/2019 23:31 Discharged to Home. Impression: Anxiety. Condition is Stable. ls4 Forms are Medication Reconciliation Form, Thank You Letter, Antibiotic Education, Prescription Opioid Use. Follow up: Private Physician; When: 2 - 3 days; Reason: Worsening of condition, Recheck today's complaints, Continuance of care, Re-evaluation by your physician. Problem is an acute exacerbation. Symptoms are resolved. mh7
--- NOTE | 2019-10-30 23:32 | ER ---
Nurse's Notes [facility] Name: Juwan Clements Age: 44 yrs Sex: Male : 1975 Arrival Date: 10/30/2019 Time: 22:54 Bed 26 Private MD: Diagnosis: Anxiety Presentation: 10/29 22:57 Chief complaint: Patient states: I have had anxiety early this evening, its feeling sg better now, reports having a squeezing sensation in his throat, denies SOB/Cough/Fever/Chills, just reports feeling anxious with no pain in chest, reports slight discomfort in back of neck that went away after popping my neck. pt states not having taken his Citalopram for this sensation, did not state why not. Coronavirus screen: Patient denies a cough. Patient denies shortness of breath or difficulty breathing. Patient denies measured and/or subjective temperature greater than 100.4F prior to today's visit. Patient denies travel on a cruise ship or to a country the [facility]NOTE 3] currently lists as an affected area. Patient denies contact with known and/or suspected case of COVID-19. Patient instructed to continue to wear a mask when interacting with others. Patient moved to private room, placed in contact and droplet isolation with eye protection until further assessment. Ebola Screen: Patient negative for fever greater than or equal to 101.5 degrees Fahrenheit, and additional compatible Ebola Virus Disease symptoms Patient denies exposure to infectious person. Patient denies travel to an Ebola-affected area in the 21 days before illness onset. No symptoms or risks identified at this time. Initial Sepsis Screen: Does the patient meet any 2 criteria? No. Patient's initial sepsis screen is negative. Does the patient have a suspected source of infection? No. Patient's initial sepsis screen is negative. Risk Assessment: Do you want to hurt yourself or someone else? Patient reports no desire to harm self or others. Onset of symptoms was October 30, 2019. Care prior to arrival: None. 22:57 Method Of Arrival: Ambulatory sg 22:57 Acuity: WALT 4 sg Triage Assessment: 23:01 General: Appears in no apparent distress. comfortable, Behavior is calm, cooperative. ls4 Pain: Denies pain. Historical: - Allergies: 22:56 No Known Allergies; sg - Home Meds: 23:03 citalopram oral [Active]; lisinopril Oral [Active]; sg - PMHx: 22:56 Anxiety; Hypertension; sg - PSHx: 22:56 None; sg - Immunization history:: Adult Immunizations not up to date. - Social history:: Smoking status: Patient denies any tobacco usage or history of. Screenin:33 Abuse screen: Denies threats or abuse. Denies injuries from another. Nutritional ls4 screening: No deficits noted. Tuberculosis screening: No symptoms or risk factors identified. Fall Risk None identified. Assessment: 23:33 General: Appears in no apparent distress. comfortable. Neuro: No deficits noted. ls4 Cardiovascular: No deficits noted. Respiratory: No deficits noted. GI: No deficits noted. GI: No signs and/or symptoms were reported involving the gastrointestinal system. : No deficits noted. No signs and/or symptoms were reported regarding the genitourinary system. Derm: Skin is pink, warm \T\ dry. Skin temperature is. Musculoskeletal: No deficits noted. No signs and/or symptoms reported regarding the musculoskeletal system. 23:38 Reassessment: Patient states feeling better. Patient states symptoms have improved. ls4 Vital Signs: 22:57 BP 121 / 84; Pulse 58; Resp 18 S; Temp 97.7; Pulse Ox 100% on R/A; Weight 73.48 kg; sg Height 5 ft. 7 in. (170.18 cm); Pain 5/10; 23:38 BP 128 / 84; Pulse 55; Resp 16; Pulse Ox 100% on R/A; Pain 0/10; ls4 22:57 Body Mass Index 25.37 (73.48 kg, 170.18 cm) ED Course: 22:54 Patient arrived in ED. ds1 22:56 Arm band placed on. sg 23:01 Soo Jessica, RN is Primary Nurse. ls4 23:03 Albino Andrade MD is Attending Physician. 7 23:07 Triage completed. sg 23:34 No provider procedures requiring assistance completed. Patient did not have IV access ls4 during this emergency room visit. Administered Medications: No medications were administered Outcome: 23:31 Discharge ordered by . 7 23:38 Discharged to home ambulatory. ls4 23:38 Condition: good 23:38 Discharge instructions given to patient, family, Instructed on discharge instructions, follow up and referral plans. medication usage, safety practices, Demonstrated understanding of instructions, follow-up care, medications. 23:39 Patient left the ED. ls4 Signatures: Phillip Dewey RN RN sg Sanford, Demi ds1 Soo Jessica RN RN ls4 Albino Andrade MD MD [id number] Corrections: (The following items were deleted from the chart) 23:34 23:33 General: Appears in no apparent distress. comfortable, Behavior is calm, ls4 cooperative, ls4 23:34 23:33 Pain: Denies pain. ls4 ls4
[2019-10-30 23:45] VITALS: TEMP 97.7; O2SAT 100
[2019-10-30 23:46] VITALS: BP 128/84
== END 2019-10-30 23:39 | disposition home or self-care (01) ==
LOC: ER 22:52
DX: F41.9 Anxiety disorder, unspecified (principal); I10 Essential (primary) hypertension
CPT/HCPCS: 99281

== ENCOUNTER 2020-01-22 01:07 | Emergency (ER) | payer SELFPAY ==
--- NOTE | 2020-01-22 03:29 | ER ---
Nurse's Notes [facility] Name: Juwan Clements Age: 44 yrs Sex: Male : 1975 Arrival Date: 01/22/2020 Time: 01:08 Bed 7 Private MD: Diagnosis: Anxiety disorder, unspecified;Essential (primary) hypertension Presentation: 01/21 01:36 Chief complaint: Patient states: I feel very anxious and have a sanchez throat. This tl1 started yesterday and the symptoms are worsening. Coronavirus screen: Client denies travel out of the [place] in the last 14 days. At this time, the client does not indicate any symptoms associated with coronavirus-19. Ebola Screen: Patient negative for fever greater than or equal to 101.5 degrees Fahrenheit, and additional compatible Ebola Virus Disease symptoms Patient denies exposure to infectious person. Patient denies travel to an Ebola-affected area in the 21 days before illness onset. Initial Sepsis Screen: Does the patient meet any 2 criteria? No. Patient's initial sepsis screen is negative. Does the patient have a suspected source of infection? No. Patient's initial sepsis screen is negative. Risk Assessment: Do you want to hurt yourself or someone else? Patient reports no desire to harm self or others. Onset of symptoms was January 20, 2020. 01:36 Method Of Arrival: Ambulatory tl1 01:36 Acuity: WALT 4 tl1 Historical: - Allergies: 01:40 No Known Allergies; tl1 - Home Meds: 01:40 citalopram oral [Active]; lisinopril Oral [Active]; tl1 - PMHx: 01:40 Anxiety; Hypertension; tl1 - PSHx: 01:40 None; tl1 - Immunization history:: Adult Immunizations up to date. - Social history:: Smoking status: Patient denies any tobacco usage or history of. Patient uses alcohol, occasionally. - Family history:: not pertinent. Screenin:41 Abuse screen: Denies threats or abuse. Denies injuries from another. Nutritional rv screening: No deficits noted. Tuberculosis screening: No symptoms or risk factors identified. Fall Risk None identified. Assessment: 02:32 General: Appears in no apparent distress. comfortable, Behavior is calm, cooperative, jb4 appropriate for age. Pain: Denies pain. Neuro: Level of Consciousness is awake, alert, obeys commands, Oriented to person, place, time, situation. Cardiovascular: Patient's skin is warm and dry. Respiratory: Airway is patent Respiratory effort is even, unlabored, Respiratory pattern is regular, symmetrical. GI: No signs and/or symptoms were reported involving the gastrointestinal system. : EENT: No signs and/or symptoms were reported regarding the EENT system. Derm: Skin is intact, Skin is pink, warm \T\ dry. Musculoskeletal: Circulation, motion, and sensation intact. Range of motion: intact in all extremities. Vital Signs: 01:36 BP 124 / 97; Pulse 72; Resp 17; Temp 98.1; Pulse Ox 100% ; Weight 86.18 kg; Height 5 tl1 ft. 6 in. (167.64 cm); Pain 0/10; 01:36 Body Mass Index 30.67 (86.18 kg, 167.64 cm) tl1 ED Course: 01:08 Patient arrived in ED. cl3 01:39 Triage completed. tl1 01:40 Arm band placed on right wrist. tl1 02:09 Jerzy Garcia MD is Attending Physician. erendira 02:11 Ori Talbert, RN is Primary Nurse. jb4 03:00 Patient has correct armband on for positive identification. Pulse ox on. NIBP on. rv 03:07 Chest Single View XRAY In Process Unspecified. EDMS 03:29 Hemal Romero MD is Referral Physician. erendira 03:42 No provider procedures requiring assistance completed. Patient did not have IV access rv during this emergency room visit. Administered Medications: No medications were administered Outcome: 03:29 Discharge ordered by . erendira 03:42 Discharged to home ambulatory. rv 03:42 Condition: good 03:42 Discharge instructions given to patient, Instructed on discharge instructions, follow up and referral plans. medication usage, Demonstrated understanding of instructions, follow-up care, medications, Prescriptions given X 1. 03:42 Patient left the ED. rv Signatures: Dispatcher [employer] EDMS Jerzy Garcia MD MD cha Lasagna, Tonya RN RN tl1 Ori Talbert, RN RN jb4 Marcell Khan RN RN rv Nilson Underwood cl3
--- NOTE | 2020-01-22 03:29 | EDPHYS ---
Physician Documentation [facility] Name: Juwan Clements Age: 44 yrs Sex: Male : 1975 Arrival Date: 01/22/2020 Time: 01:08 Bed 7 Private MD: VALENTINE Physician Jerzy Garcia HPI: 01/21 02:35 This 44 yrs old Male presents to ER via Ambulatory with complaints of Dry erendira Mouth, Anxious. 02:35 The patient presents to the emergency department with anxiety. Onset: The erendira symptoms/episode began/occurred just prior to arrival. Past psychiatric history: Prior diagnosis: anxiety. anxious, mouth dry. Associated signs and symptoms: Pertinent positives; anxiety. Severity of symptoms: At their worst the symptoms were mild in the emergency department the symptoms are unchanged. The patient has experienced similar episodes in the past, multiple times. Historical: - Allergies: 01:40 No Known Allergies; tl1 - Home Meds: 01:40 citalopram oral [Active]; lisinopril Oral [Active]; tl1 - PMHx: 01:40 Anxiety; Hypertension; tl1 - PSHx: 01:40 None; tl1 - Immunization history:: Adult Immunizations up to date. - Social history:: Smoking status: Patient denies any tobacco usage or history of. Patient uses alcohol, occasionally. - Family history:: not pertinent. ROS: 02:35 Constitutional: Negative for fever, chills, and weight loss, Eyes: Negative for injury, erendira pain, redness, and discharge, ENT: Negative for injury, pain, and discharge, Neck: Negative for injury, pain, and swelling, Cardiovascular: Negative for chest pain, palpitations, and edema, Respiratory: Negative for shortness of breath, cough, wheezing, and pleuritic chest pain, Abdomen/GI: Negative for abdominal pain, nausea, vomiting, diarrhea, and constipation, Back: Negative for injury and pain, : Negative for injury, bleeding, discharge, and swelling, MS/Extremity: Negative for injury and deformity, Skin: Negative for injury, rash, and discoloration, Neuro: Negative for headache, weakness, numbness, tingling, and seizure, Allergy/Immunology: Negative for hives, rash, and allergies, Endocrine: Negative for neck swelling, polydipsia, polyuria, polyphagia, and marked weight changes, Hematologic/Lymphatic: Negative for swollen nodes, abnormal bleeding, and unusual bruising. 02:35 Psych: Positive for anxiety. Exam: 02:35 Constitutional: This is a well developed, well nourished patient who is awake, alert, erendira and in no acute distress. Head/Face: Normocephalic, atraumatic. Eyes: Pupils equal round and reactive to light, extra-ocular motions intact. Lids and lashes normal. Conjunctiva and sclera are non-icteric and not injected. Cornea within normal limits. Periorbital areas with no swelling, redness, or edema. ENT: Nares patent. No nasal discharge, no septal abnormalities noted. Tympanic membranes are normal and external auditory canals are clear. Oropharynx with no redness, swelling, or masses, exudates, or evidence of obstruction, uvula midline. Mucous membranes moist. Neck: Trachea midline, no thyromegaly or masses palpated, and no cervical lymphadenopathy. Supple, full range of motion without nuchal rigidity, or vertebral point tenderness. No Meningismus. Chest/axilla: Normal chest wall appearance and motion. Nontender with no deformity. No lesions are appreciated. Cardiovascular: Regular rate and rhythm with a normal S1 and S2. No gallops, murmurs, or rubs. Normal PMI, no JVD. No pulse deficits. Respiratory: Lungs have equal breath sounds bilaterally, clear to auscultation and percussion. No rales, rhonchi or wheezes noted. No increased work of breathing, no retractions or nasal flaring. Abdomen/GI: Soft, non-tender, with normal bowel sounds. No distension or tympany. No guarding or rebound. No evidence of tenderness throughout. Back: No spinal tenderness. No costovertebral tenderness. Full range of motion. Male : Normal genitalia with no discharge or lesions. Skin: Warm, dry with normal turgor. Normal color with no rashes, no lesions, and no evidence of cellulitis. MS/ Extremity: Pulses equal, no cyanosis. Neurovascular intact. Full, normal range of motion. Neuro: Awake and alert, GCS 15, oriented to person, place, time, and situation. Cranial nerves II-XII grossly intact. Motor strength 5/5 in all extremities. Sensory grossly intact. Cerebellar exam normal. Normal gait. Psych: Awake, alert, with orientation to person, place and time. Behavior, mood, and affect are within normal limits. 03:28 ECG was reviewed by the Attending Physician. [facility] Vital Signs: 01:36 BP 124 / 97; Pulse 72; Resp 17; Temp 98.1; Pulse Ox 100% ; Weight 86.18 kg; Height 5 tl1 ft. 6 in. (167.64 cm); Pain 0/10; 01:36 Body Mass Index 30.67 (86.18 kg, 167.64 cm) tl1 MDM: 02:09 Patient medically screened. [facility] 02:38 Differential diagnosis: drug withdrawal. acute psychotic break, depression. Data [facility] reviewed: vital signs, nurses notes, lab test result(s), EKG, radiologic studies. Data interpreted: site monitor: not applicable for this patient encounter. Pulse oximetry: on room air is 100 %. Test interpretation: by ED physician or midlevel provider: ECG, plain radiologic studies. Counseling: I had a detailed discussion with the patient and/or guardian regarding: the historical points, exam findings, and any diagnostic results supporting the discharge/admit diagnosis, lab results, radiology results, the need for outpatient follow up, for definitive care, a family practitioner, a psychiatrist. 01/21 03:29 Order name: Glucose, Ancillary Testing EDMI 01/21 02:33 Order name: Chest Single View XRAY [facility] 01/21 02:33 Order name: Blood Glucose Level; Complete Time: 07:29 [facility] 01/21 02:33 Order name: EKG; Complete Time: 02:34 [facility] 01/21 02:33 Order name: EKG - Nurse/Tech; Complete Time: 07:29 [facility] EC:28 Rate is 60 beats/min. Rhythm is regular. QRS [place] is Normal. MI interval is normal. QRS erendira interval is normal. QT interval is normal. No Q waves. T waves are Normal. No ST changes noted. Clinical impression: Normal ECG and No evidence of ischemia. Interpreted by me. Reviewed by me. Administered Medications: No medications were administered Disposition: 01/22/20 03:29 Discharged to Home. Impression: Anxiety disorder, unspecified, Essential (primary) hypertension. - Condition is Stable. - Discharge Instructions: Panic Attacks, Hypertension, Hypertension, [id number], How to Take Your Blood Pressure, [id number], Panic Attacks, [id number], Aspirin and Your Heart, Managing Your Hypertension. - Prescriptions for Hydroxyzine HCl 25 mg Oral Tablet - take 1 tablet by ORAL route every 6 hours As needed; 30 tablet. - Medication Reconciliation Form, Thank You Letter, Antibiotic Education, Prescription Opioid Use form. - Follow up: Private Physician; When: 2 - 3 days; Reason: Recheck today's complaints, Continuance of care, Re-evaluation by your physician. Follow up: Hemal Romero; When: 2 - 3 days; Reason: Recheck today's complaints, Re-evaluation by your physician. - Problem is new. - Symptoms have improved. Signatures: Dispatcher [employer] EDMS Jerzy Garcia MD MD cha Lasagna, Tonya RN RN tl1 Marcell Khan RN RN rv Corrections: (The following items were deleted from the chart) 03:42 03:29 01/22/2020 03:29 Discharged to Home. Impression: Anxiety disorder, unspecified; rv Essential (primary) hypertension. Condition is Stable. Discharge Instructions: Panic Attacks, Hypertension, Hypertension, [id number], How to Take Your Blood Pressure, Uuzh-[id number], Panic Attacks, Fqmt-[id number], Aspirin and Your Heart, Managing Your Hypertension. Prescriptions for Hydroxyzine HCl 25 mg Oral Tablet - take 1 tablet by ORAL route every 6 hours As needed; 30 tablet. and Forms are Medication Reconciliation Form, Thank You Letter, Antibiotic Education, Prescription Opioid Use. Follow up: Private Physician; When: 2 - 3 days; Reason: Recheck today's complaints, Continuance of care, Re-evaluation by your physician. Follow up: Hemal Romero; When: 2 - 3 days; Reason: Recheck today's complaints, Re-evaluation by your physician. Problem is new. Symptoms have improved. erendira
[2020-01-22 03:47] VITALS: BP 124/97; TEMP 98.1; O2SAT 100
--- NOTE | 2020-01-22 09:11 | RAD REPORT ---
EXAM DESCRIPTION: Ervin Single View01/22/2020 3:07 am CLINICAL HISTORY: Cough COMPARISON: June 2019 FINDINGS: The lungs appear clear of acute infiltrate. The heart is normal size IMPRESSION: No acute abnormalities displayed
== END 2020-01-22 03:42 | disposition home or self-care (01) ==
LOC: ER 01:07
DX: F41.9 Anxiety disorder, unspecified (principal); I10 Essential (primary) hypertension
CPT/HCPCS: 71045; 82947; 93005; 99283

== ENCOUNTER 2020-04-22 00:43 | Emergency (ER) | payer SELFPAY ==
[2020-04-22] MEDS ORDERED: ONDANSETRON 4 MG/2 ML VIAL ONE (02:53)
[2020-04-22] MEDS ORDERED: NA CHLORIDE 0.9% 1,000 ML ONE (02:53)
[2020-04-22] MEDS ORDERED: FAMOTIDINE 20 MG/2 ML VIAL IV ONE (02:53)
[2020-04-22 03:08] LABS: Absolute Lymphocytes (CBC) 2.3 K/uL (0.7-4.9); Basophils % 0.7 % (0-1.3); Hematocrit 45.2 % (39.6-49.0); Lymphocytes % 25.8 % (15.3-44.8); MPV 9.8 fL (7.6-11.3); RBC Red Blood Cell Count 4.91 M/uL (4.33-5.43)
[2020-04-22 03:54] LABS: Bilirubin Direct 0.1 mg/dL (0-0.2); Bilirubin Total 0.5 mg/dL (0.2-1.0); Potassium 4.2 mmol/L (3.5-5.1); Protein, Total 7.6 g/dL (6.4-8.2)
--- NOTE | 2020-04-22 05:38 | EDPHYS ---
Physician Documentation [facility] Name: Juwan Clements Age: 44 yrs Sex: Male : 1975 Arrival Date: 04/22/2020 Time: 00:49 Bed 8 Private MD: Sis Allen C ED Physician Jerzy Garcia HPI: 04/22 03:09 This 44 yrs old Male presents to ER via Unassigned with complaints of erendira Abdominal Pain, Nausea/Vomiting, Abdominal Cramping. 03:09 The patient presents to the emergency department with nausea, vomiting, that is erendira intermittent, described as bilious. Onset: The symptoms/episode began/occurred just prior to arrival, yesterday. Possible causes: unknown. The symptoms are aggravated by nothing. The symptoms are alleviated by nothing. Associated signs and symptoms: The patient has no apparent associated signs or symptoms. Severity of symptoms: At their worst the symptoms were mild. The patient has not experienced similar symptoms in the past. Historical: - Allergies: 01:52 No Known Allergies; sg - PMHx: 01:52 Anxiety; Hypertension; sg - PSHx: 01:52 None; sg - Immunization history:: Adult Immunizations not up to date. - Social history:: Smoking status: Patient denies any tobacco usage or history of. - Family history:: not pertinent. ROS: 03:09 Constitutional: Negative for fever, chills, and weight loss, Eyes: Negative for injury, erendira pain, redness, and discharge, ENT: Negative for injury, pain, and discharge, Neck: Negative for injury, pain, and swelling, Cardiovascular: Negative for chest pain, palpitations, and edema, Respiratory: Negative for shortness of breath, cough, wheezing, and pleuritic chest pain, Back: Negative for injury and pain, : Negative for injury, bleeding, discharge, and swelling, MS/Extremity: Negative for injury and deformity, Skin: Negative for injury, rash, and discoloration, Neuro: Negative for headache, weakness, numbness, tingling, and seizure. 03:09 Abdomen/GI: Positive for abdominal pain, nausea and vomiting, of the epigastric area, right upper quadrant and left upper quadrant. Exam: 03:09 Constitutional: This is a well developed, well nourished patient who is awake, alert, erendira and in no acute distress. Head/Face: Normocephalic, atraumatic. Eyes: Pupils equal round and reactive to light, extra-ocular motions intact. Lids and lashes normal. Conjunctiva and sclera are non-icteric and not injected. Cornea within normal limits. Periorbital areas with no swelling, redness, or edema. ENT: Nares patent. No nasal discharge, no septal abnormalities noted. Tympanic membranes are normal and external auditory canals are clear. Oropharynx with no redness, swelling, or masses, exudates, or evidence of obstruction, uvula midline. Mucous membranes moist. Neck: Trachea midline, no thyromegaly or masses palpated, and no cervical lymphadenopathy. Supple, full range of motion without nuchal rigidity, or vertebral point tenderness. No Meningismus. Chest/axilla: Normal chest wall appearance and motion. Nontender with no deformity. No lesions are appreciated. Cardiovascular: Regular rate and rhythm with a normal S1 and S2. No gallops, murmurs, or rubs. Normal PMI, no JVD. No pulse deficits. Respiratory: Lungs have equal breath sounds bilaterally, clear to auscultation and percussion. No rales, rhonchi or wheezes noted. No increased work of breathing, no retractions or nasal flaring. Back: No spinal tenderness. No costovertebral tenderness. Full range of motion. Male : Normal genitalia with no discharge or lesions. Skin: Warm, dry with normal turgor. Normal color with no rashes, no lesions, and no evidence of cellulitis. MS/ Extremity: Pulses equal, no cyanosis. Neurovascular intact. Full, normal range of motion. Neuro: Awake and alert, GCS 15, oriented to person, place, time, and situation. Cranial nerves II-XII grossly intact. Motor strength 5/5 in all extremities. Sensory grossly intact. Cerebellar exam normal. Normal gait. Psych: Awake, alert, with orientation to person, place and time. Behavior, mood, and affect are within normal limits. 03:09 Abdomen/GI: Inspection: distension, that is mild, Bowel sounds: normal, Palpation: mild abdominal tenderness, in the epigastric area, right upper quadrant and left upper quadrant, Liver: no appreciated palpable abnormalities, Hernia: not appreciated. 03:09 Musculoskeletal/extremity: DVT Exam: No signs of deep vein thrombosis. no pain, no swelling, no tenderness, negative Homans' sign noted on exam, no appreciated bluish discoloration, no erythema, no increased warmth. 04:38 ECG was reviewed by the Attending Physician. [facility] Vital Signs: 02:50 BP 121 / 86; Pulse 86; Resp 18; Temp 98; Pulse Ox 97% ; Weight 86.18 kg; Height 5 ft. 7 ea in. (170.18 cm); 06:00 BP 123 / 87; Pulse 63; Resp 18; Temp 98.2; Pulse Ox 98% ; ea 02:50 Body Mass Index 29.76 (86.18 kg, 170.18 cm) ea MDM: 02:30 Patient medically screened. [facility] 03:12 Differential diagnosis: Nonspecific abd pain, gastritis, cholecystitis, pancreatitis, erendira diverticulitis. Data reviewed: vital signs, nurses notes, lab test result(s), EKG, radiologic studies, CT scan, plain films. Data interpreted: poultry sexer: rate is 82 beats/min, rhythm is regular. Test interpretation: by ED physician or midlevel provider: ECG, plain radiologic studies. Counseling: I had a detailed discussion with the patient and/or guardian regarding: the historical points, exam findings, and any diagnostic results supporting the discharge/admit diagnosis, the presence of at least one elevated blood pressure reading (>120/80) during this emergency department visit, lab results, radiology results, the need for further work-up and treatment in the hospital. 04/22 02:25 Order name: Basic Metabolic Panel; Complete Time: 03:59 [facility] 04/22 02:25 Order name: CBC with Diff; Complete Time: 03:59 [facility] 04/22 02:25 Order name: Hepatic Function; Complete Time: 03:59 [facility] 04/22 02:25 Order name: Lipase; Complete Time: 03:59 [facility] 04/22 03:09 Order name: Chest Single View XRAY [facility] 04/22 03:09 Order name: Troponin (emerg Dept Use Only); Complete Time: 05:36 [facility] 04/22 02:25 Order name: IV Saline Lock; Complete Time: 02:56 [facility] 04/22 02:25 Order name: Labs collected and sent; Complete Time: 02:56 [facility] 04/22 03:09 Order name: EKG; Complete Time: 03:10 [facility] 04/22 03:09 Order name: CT Abd/Pelvis - IV Contrast Only [facility] 04/22 03:09 Order name: EKG - Nurse/Tech; Complete Time: 04:25 [facility] EC:38 Rate is 73 beats/min. Rhythm is regular. QRS [place] is Normal. NC interval is normal. QRS erendira interval is normal. QT interval is normal. No Q waves. T waves are Normal. No ST changes noted. Clinical impression: Normal ECG and No evidence of ischemia. Interpreted by me. Reviewed by me. Administered Medications: 02:56 Drug: Pepcid 20 mg Route: IVP; Site: right antecubital; ea 04:25 Follow up: Response: No adverse reaction ea 02:56 Drug: Zofran (Ondansetron) 4 mg Route: IVP; Site: right antecubital; ea 04:25 Follow up: Response: No adverse reaction ea 02:57 Drug: NS 0.9% 1000 ml Route: IV; Rate: 1 bolus; Site: right antecubital; ea 06:21 Follow up: Response: No adverse reaction; IV Status: Completed infusion; IV Intake: ea 1000ml Disposition: 04/22/20 05:36 Discharged to Home. Impression: Abdominal tenderness, Functional dyspepsia, Cholelithiasis. - Condition is Stable. - Discharge Instructions: Abdominal Pain, Adult, Cholelithiasis, Cholelithiasis, [id number], Abdominal Pain, Adult, [id number]. - Prescriptions for Bentyl 20 mg Oral Tablet - take 1 tablet by ORAL route every 6 hours As needed; 20 tablet. Pepcid 20 mg Oral Tablet - take 1 tablet by ORAL route every 12 hours for 10 days; 20 tablet. Zofran 4 mg Oral Tablet - take 1 tablet by ORAL route every 12 hours As needed; 20 tablet. - Medication Reconciliation Form, Thank You Letter, Antibiotic Education, Prescription Opioid Use, Work release form, SBAR form form. - Follow up: Private Physician; When: 2 - 3 days; Reason: Recheck today's complaints, Continuance of care, Re-evaluation by your physician. Follow up: Ori Ann; When: 2 - 3 days; Reason: Recheck today's complaints, Continuance of care, Re-evaluation by your physician. - Problem is new. - Symptoms have improved. Signatures: Dispatcher [employer] EDMS Dewey, PhillipNEGRO muñoz RN, Corey, MD MD cha Antunez, Elena, RN RN ea Corrections: (The following items were deleted from the chart) 06:27 05:36 04/22/2020 05:36 Discharged to Home. Impression: Abdominal tenderness; Functional ea dyspepsia; Cholelithiasis. Condition is Stable. Discharge Instructions: Abdominal Pain, Adult, Abdominal Pain, Adult, [id number], Cholelithiasis, Cholelithiasis, [id number]. Prescriptions for Bentyl 20 mg Oral Tablet - take 1 tablet by ORAL route every 6 hours As needed; 20 tablet, Pepcid 20 mg Oral Tablet - take 1 tablet by ORAL route every 12 hours for 10 days; 20 tablet, Zofran 4 mg Oral Tablet - take 1 tablet by ORAL route every 12 hours As needed; 20 tablet. and Forms are Medication Reconciliation Form, Thank You Letter, Antibiotic Education, Prescription Opioid Use. Follow up: Private Physician; When: 2 - 3 days; Reason: Recheck today's complaints, Continuance of care, Re-evaluation by your physician. Follow up: Ori Ann; When: 2 - 3 days; Reason: Recheck today's complaints, Continuance of care, Re-evaluation by your physician. Problem is new. Symptoms have improved. erendira
--- NOTE | 2020-04-22 06:18 | EKG ---
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
--- NOTE | 2020-04-22 06:28 | ER ---
Nurse's Notes [facility] Name: Juwan Clements Age: 44 yrs Sex: Male : 1975 Arrival Date: 04/22/2020 Time: 00:49 Bed 8 Private MD: Sis Allen C Diagnosis: Abdominal tenderness;Functional dyspepsia;Cholelithiasis Presentation: 04/22 01:53 Acuity: WALT 3 sg 01:53 Note jordanian speaking only, will obtain audit consultant. sg 02:50 Chief complaint: Patient states: Pt complaining of abdominal cramping and nausea that ea started today. 02:50 Method Of Arrival: Ambulatory ea 02:59 Coronavirus screen: At this time, the client does not indicate any symptoms associated ea with coronavirus-19. Ebola Screen: No symptoms or risks identified at this time. Initial Sepsis Screen: Does the patient meet any 2 criteria? No. Patient's initial sepsis screen is negative. Does the patient have a suspected source of infection? No. Patient's initial sepsis screen is negative. Risk Assessment: Do you want to hurt yourself or someone else? Patient reports no desire to harm self or others. Onset of symptoms was April 22, 2020. Historical: - Allergies: 01:52 No Known Allergies; sg - PMHx: 01:52 Anxiety; Hypertension; sg - PSHx: 01:52 None; sg - Immunization history:: Adult Immunizations not up to date. - Social history:: Smoking status: Patient denies any tobacco usage or history of. - Family history:: not pertinent. Screenin:59 Abuse screen: Denies threats or abuse. Nutritional screening: No deficits noted. ea Tuberculosis screening: No symptoms or risk factors identified. Fall Risk IV access (20 points). Assessment: 02:58 General: Appears uncomfortable, Behavior is appropriate for age. Pain: Complains of ea pain in right upper quadrant and left upper quadrant Pain does not radiate. Quality of pain is described as crampy, Also complains of nausea. Neuro: Level of Consciousness is awake, alert, obeys commands, Oriented to person, place, time, situation. Respiratory: Airway is patent Respiratory effort is even, unlabored, Respiratory pattern is regular, symmetrical. Derm: Skin is pink, warm \T\ dry. 04:00 Reassessment: Patient and/or family updated on plan of care and expected duration. Pain ea level reassessed. Patient is alert, oriented x 3, equal unlabored respirations, skin warm/dry/pink. 06:29 Reassessment: Patient and/or family updated on plan of care and expected duration. Pain ea level reassessed. Patient is alert, oriented x 3, equal unlabored respirations, skin warm/dry/pink. Reassessment: Patient and/or family updated on plan of care and expected duration. Pain level reassessed. Patient is alert, oriented x 3, equal unlabored respirations, skin warm/dry/pink. Discharge instruction given to patient, verbalized the understanding of instruction. pt left ED ambulatory tolerating well. Vital Signs: 02:50 BP 121 / 86; Pulse 86; Resp 18; Temp 98; Pulse Ox 97% ; Weight 86.18 kg; Height 5 ft. 7 ea in. (170.18 cm); 06:00 BP 123 / 87; Pulse 63; Resp 18; Temp 98.2; Pulse Ox 98% ; ea 02:50 Body Mass Index 29.76 (86.18 kg, 170.18 cm) ea ED Course: 00:49 Patient arrived in ED. am2 00:50 Sis Allen FNP is Private Physician. am2 01:53 Triage completed. sg 01:53 Arm band placed on. sg 02:00 No provider procedures requiring assistance completed. ea 02:24 Jerzy Garcia MD is Attending Physician. erendira 02:35 Ruth Morrell, NEGRO is Primary Nurse. ea 03:00 Patient has correct armband on for positive identification. Bed in low position. Call ea light in reach. Side rails up X2. 03:54 Chest Single View XRAY In Process Unspecified. EDMS 05:02 CT Abd/Pelvis - IV Contrast Only In Process Unspecified. EDMS 05:36 Ori Ann MD is Referral Physician. erendira 06:27 IV discontinued, intact, bleeding controlled, No redness/swelling at site. Pressure ea dressing applied. Administered Medications: 02:56 Drug: Pepcid 20 mg Route: IVP; Site: right antecubital; ea 04:25 Follow up: Response: No adverse reaction ea 02:56 Drug: Zofran (Ondansetron) 4 mg Route: IVP; Site: right antecubital; ea 04:25 Follow up: Response: No adverse reaction ea 02:57 Drug: NS 0.9% 1000 ml Route: IV; Rate: 1 bolus; Site: right antecubital; ea 06:21 Follow up: Response: No adverse reaction; IV Status: Completed infusion; IV Intake: ea 1000ml Intake: 06:21 IV: 1000ml; Total: 1000ml. ea Outcome: 05:36 Discharge ordered by MD. krishna 06:26 Discharged to home ambulatory. ea 06:26 Condition: stable 06:26 Discharge instructions given to patient, Instructed on discharge instructions, follow up and referral plans. medication usage, Demonstrated understanding of instructions, follow-up care, medications, Prescriptions given X 4. 06:27 Patient left the ED. ea Signatures: Dispatcher [employer] EDMS Phillip Dewey, RN RN Jerzy Martinez MD MD cha Moreno, Amanda am2 Antunez, Elena, RN RN ea Corrections: (The following items were deleted from the chart) 06:29 05:00 Reassessment: Patient and/or family updated on plan of care and expected ea duration. Pain level reassessed. Patient is alert, oriented x 3, equal unlabored respirations, skin warm/dry/pink. ea 06:29 05:00 Reassessment: Patient and/or family updated on plan of care and expected ea duration. Pain level reassessed. Patient is alert, oriented x 3, equal unlabored respirations, skin warm/dry/pink. Discharge instruction given to patient, verbalized the understanding of instruction. pt left ED ambulatory tolerating well ea
[2020-04-22 06:31] VITALS: BP 121/86; TEMP 98; O2SAT 97
--- NOTE | 2020-04-22 07:53 | RAD REPORT ---
EXAM DESCRIPTION: Ervin Single View04/22/2020 3:55 am CLINICAL HISTORY: Abdominal pain COMPARISON: January 2020 FINDINGS: The lungs appear clear of acute infiltrate. The heart is normal size IMPRESSION: No acute abnormalities displayed
--- NOTE | 2020-04-22 20:45 | RAD REPORT ---
EXAM DESCRIPTION: CT - Abdomen Pelvis W Contrast - 04/22/2020 7:08 am CLINICAL HISTORY: The patient is 44 years old and is Male; ABD PAIN TECHNIQUE: Axial computed tomography images of the abdomen and pelvis with intravenous contrast. S agittal and coronal reformatted images were created and reviewed. This CT exam was performed using one or more of the following dose reduction techniques: automated exposure control, adjustment of t he mA and/or kV according to patient size, and/or use of iterative reconstruction technique. COMPARISON: No relevant prior studies available. FINDINGS: LUNG BASES: Unremarkable. No mass. No consolidation. ABDOMEN: LIVER: The liver is enlarged and diffusely fatty. GALLBLADDER AND BILE DUCTS: Calcified gallstone is present within the gallbladder. There is no du ctal dilatation. PANCREAS: No ductal dilation. No mass. SPLEEN: Unremarkable. ADRENALS: Unremarkable. No mass. KIDNEYS AND URETERS: Unremarkable. The kidneys enhance symmetrically. No obstructing renal or ure teral calculus is seen. No hydronephrosis or hydroureter. No perinephric fluid or stranding. STOMACH AND BOWEL: The stomach is not well distended. The small bowel is normal in caliber. Minim al stool is present throughout the colon. There is no mucosal thickening or evidence of bowel obstruc tion. PELVIS: APPENDIX: The appendix is normal in caliber without surrounding inflammation. BLADDER: Unremarkable. No mass. REPRODUCTIVE: Unremarkable as visualized. ABDOMEN and PELVIS: INTRAPERITONEAL SPACE: Unremarkable. No free air. No significant fluid collection. BONES/JOINTS: No acute fracture. SOFT TISSUES: The soft tissues are normal. VASCULATURE: Unremarkable. No abdominal aortic aneurysm. LYMPH NODES: Unremarkable. No enlarged lymph nodes. IMPRESSION: 1. No acute findings on this contrasted CT of the abdomen and pelvis to explain the pa tient's symptoms. 2. Cholelithiasis without CT evidence to suggest cholecystitis. Electronically signed by: Eri Saleh MD 04/22/2020 5:13 AM HIGH SCHOOL PROFESSIONAL Due to temporary technical issues with the PACS/Fluency reporting system, reports are being signed by the in house radiologists without review as a courtesy to insure prompt reporting. The interpreting radiologist is fully responsible for the content of the report.
== END 2020-04-22 06:27 | disposition home or self-care (01) ==
LOC: ER 00:43
DX: K80.20 Calculus of gallbladder without cholecystitis without obstruction (principal); K30 Functional dyspepsia; I10 Essential (primary) hypertension
CPT/HCPCS: 36415; 71045; 74177; 80048; 80076; 83690; 84484; 85025; 93005; 96361; 96374; 96375; 99283; J2405; J7030; Q9967

== ENCOUNTER 2020-05-24 23:40 | Emergency (ER) | payer SELFPAY ==
[2020-05-25 01:37] LABS: Absolute Lymphocytes (CBC) 2.2 K/uL (0.7-4.9); Basophils % 0.6 % (0-1.3); Hematocrit 44.4 % (39.6-49.0); MPV 9.7 fL (7.6-11.3); RBC Red Blood Cell Count 4.92 M/uL (4.33-5.43)
[2020-05-25 01:48] LABS: BUN Blood Urea Nitrogen 22 mg/dL (7-18); Bicarbonate 25 mmol/L (21-32); Glucose Level 101 mg/dL (74-106); Magnesium 2.4 mg/dL (1.8-2.4); NT PRO-BNP 17 pg/mL (<125); Sodium Level 140 mmol/L (136-145); Troponin (Emerg Dept Use Only) < 0.02 ng/mL (0.0-0.045)
--- NOTE | 2020-05-25 02:03 | EDPHYS ---
Physician Documentation [facility] Name: Juwan Clements Age: 44 yrs Sex: Male : 1975 Arrival Date: 05/24/2020 Time: 23:40 Bed 4 Private MD: ED Physician Sudhakar Pham HPI: 05/25 01:13 This 44 yrs old Male presents to ER via Ambulatory with complaints of rn palpitations. 01:13 The patient presents with a history of heart racing. Context: The symptoms occur at rn rest. Onset: The symptoms/episode began/occurred yesterday. Duration: The patient or guardian reports multiple episodes. Modifying factors: The symptoms are aggravated by nothing. The symptoms are alleviated by nothing. Severity of symptoms: At their worst the symptoms were mild in the emergency department the symptoms have improved. The patient has experienced a previous episode. Reports palpitations, feels like heart racing, began yesterday, has happened before, had heart monitor, and nothing found, denies excessive caffeine/drug use, no ETOH recently. No chest pain. Reports intermittent, feels anxious, tingling of arms, and sometimes feels lightheaded, but no syncope. . Historical: - Allergies: 00:13 No Known Allergies; em - Home Meds: 00:13 citalopram oral [Active]; lisinopril Oral [Active]; em - PMHx: 00:13 Anxiety; Hypertension; em - Immunization history:: Adult Immunizations up to date. - Social history:: Smoking status: Patient denies any tobacco usage or history of. Patient uses alcohol, occasionally. - Family history:: not pertinent. - Hospitalizations: : No recent hospitalization is reported. ROS: 01:13 Constitutional: Negative for fever, chills, and weight loss, Eyes: Negative for injury, rn pain, redness, and discharge, Neck: Negative for injury, pain, and swelling, Cardiovascular: Negative for chest pain, and edema, Respiratory: Negative for shortness of breath, cough, wheezing, and pleuritic chest pain, Abdomen/GI: Negative for abdominal pain, nausea, vomiting, diarrhea, and constipation, Back: Negative for injury and pain, MS/Extremity: Negative for injury and deformity, Skin: Negative for injury, rash, and discoloration, Neuro: Negative for headache, weakness, numbness, tingling, and seizure. Exam: 01:13 Constitutional: This is a well developed, well nourished patient who is awake, alert, rn and in no acute distress. Head/Face: Normocephalic, atraumatic. Eyes: Pupils equal round and reactive to light, extra-ocular motions intact. Lids and lashes normal. Conjunctiva and sclera are non-icteric and not injected. Cornea within normal limits. Periorbital areas with no swelling, redness, or edema. Cardiovascular: Regular rate and rhythm. No pulse deficits. Respiratory: No increased work of breathing, no retractions or nasal flaring. Abdomen/GI: soft, non-tender Skin: Warm, dry with normal turgor. Normal color with no rashes, no lesions, and no evidence of cellulitis. MS/ Extremity: Pulses equal, no cyanosis. Neurovascular intact. Full, normal range of motion. Equal circumference. Neuro: Awake and alert, GCS 15, oriented to person, place, time, and situation. Cranial nerves II-XII grossly intact. Motor strength 5/5 in all extremities. Sensory grossly intact. Cerebellar exam normal. Normal gait. 01:33 ECG was reviewed by the Attending Physician. rn Vital Signs: 00:09 BP 135 / 97; Pulse 91; Resp 18; Temp 98.2; Pulse Ox 98% ; Weight 86.18 kg; Height 5 ft. em 6 in. (167.64 cm); Pain 0/10; 01:15 BP 143 / 99; Pulse 77; Resp 16; Pulse Ox 99% ; rr5 02:06 BP 127 / 97; Pulse 76; Resp 16; Pulse Ox 94% ; ea 00:09 Body Mass Index 30.67 (86.18 kg, 167.64 cm) em MDM: 01:05 Patient medically screened. rn 02:00 Differential diagnosis: arrythmia, dehydration, stress disorder, anxiety. Data rn reviewed: vital signs, nurses notes, lab test result(s), EKG, radiologic studies, plain films, and as a result, I will discharge patient. Counseling: I had a detailed discussion with the patient and/or guardian regarding: the historical points, exam findings, and any diagnostic results supporting the discharge/admit diagnosis, lab results, radiology results, the need for outpatient follow up, to return to the emergency department if symptoms worsen or persist or if there are any questions or concerns that arise at home. Response to treatment: the patient's symptoms have resolved after treatment, the patient's condition has returned to base line, the patient is now symptom free. Special discussion: I discussed with the patient/guardian in detail that at this point there is no indication for admission to the hospital. It is understood, however, that if the symptoms persist or worsen the patient needs to return immediately for re-evaluation. ED course: No episodes of tachycardia or palpitations here, neg bloodwork, no acute findings on ECG, normal CXR, will dc home. . 05/25 01:13 Order name: Basic Metabolic Panel rn 05/25 01:13 Order name: CBC with Diff; Complete Time: 02:00 rn 05/25 01:13 Order name: Magnesium; Complete Time: 02:00 rn 05/25 01:13 Order name: NT PRO-BNP; Complete Time: 02:00 rn 05/25 01:13 Order name: Troponin (emerg Dept Use Only); Complete Time: 02: rn 05/25 01:13 Order name: Basic Metabolic Panel; Complete Time: 02:00 EDMS 05/25 01:13 Order name: XRAY Chest (1 view) rn 05/25 01:13 Order name: EKG; Complete Time: 01: rn 05/25 01:13 Order name: Cardiac monitoring; Complete Time: :15 rn 05/25 01:13 Order name: EKG - Nurse/Tech; Complete Time: :15 05/25 01:13 Order name: IV Saline Lock; Complete Time: :05/25 01:13 Order name: Labs collected and sent; Complete Time: : rn 05/25 01:13 Order name: O2 Per Protocol; Complete Time: :05/25 01:13 Order name: O2 Sat Monitoring; Complete Time: : rn EC:33 Rate is 69 beats/min. Rhythm is regular. QRS [place] is Normal. [place] interval is normal. QRS rn interval is normal. QT interval is normal. No Q waves. T waves are Normal. No ST changes noted. Clinical impression: Normal ECG. Interpreted by me. Reviewed by me. Administered Medications: No medications were administered Disposition: 05/25/20 02:02 Discharged to Home. Impression: Palpitations. - Condition is Stable. - Discharge Instructions: Holter Monitoring, Palpitations. - Medication Reconciliation Form, Thank You Letter, Antibiotic Education, Prescription Opioid Use form. - Follow up: Private Physician; When: As needed; Reason: Recheck today's complaints, Re-evaluation by your physician. Follow up: Hemal Romero MD; When: As needed; Reason: Recheck today's complaints, Re-evaluation by your physician. - Problem is new. - Symptoms have improved. 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 Impression: Palpitations. Condition is rn Stable. Forms are Medication Reconciliation Form, Thank You Letter, Antibiotic Education, Prescription Opioid Use. Follow up: Private Physician; When: As needed; Reason: Recheck today's complaints, Re-evaluation by your physician. Problem is new. Symptoms have improved. rn 02:33 02:18 05/25/2020 02:02 Discharged to Home. Impression: Palpitations. Condition is sg Stable. Discharge Instructions: Holter Monitoring, Palpitations. Forms are Medication Reconciliation Form, Thank You Letter, Antibiotic Education, Prescription Opioid Use. Follow up: Private Physician; When: As needed; Reason: Recheck today's complaints, Re-evaluation by your physician. Follow up: Hemal Romero; When: As needed; Reason: Recheck today's complaints, Re-evaluation by your physician. Problem is new. Symptoms have improved. rn
--- NOTE | 2020-05-25 02:03 | ER ---
Nurse's Notes [facility] Name: Juwan Clements Age: 44 yrs Sex: Male : 1975 Arrival Date: 05/24/2020 Time: 23:40 Bed 4 Private MD: Diagnosis: Palpitations Presentation: 05/25 00:09 Chief complaint: Patient states: feels like he has a fast heartbeat and is nauseated. 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 Coronavirus screen: Client denies travel out of the [place] in the last 14 days. Ebola Screen: Patient negative for fever greater than or equal to 101.5 degrees Fahrenheit, and additional compatible Ebola Virus Disease symptoms Patient denies exposure to infectious person. Patient denies travel to an Ebola-affected area in the 21 days before illness onset. Initial Sepsis Screen: Does the patient meet any 2 criteria? No. Patient's initial sepsis screen is negative. Does the patient have a suspected source of infection? No. Patient's initial sepsis screen is negative. Risk Assessment: Do you want to hurt yourself or someone else? Patient reports no desire to harm self or others. Onset of symptoms was May 25, 2020. 00:09 Method Of Arrival: Ambulatory em 00:09 Acuity: WALT 3 em Historical: - Allergies: 00:13 No Known Allergies; em - Home Meds: 00:13 citalopram oral [Active]; lisinopril Oral [Active]; em - PMHx: 00:13 Anxiety; Hypertension; em - Immunization history:: Adult Immunizations up to date. - Social history:: Smoking status: Patient denies any tobacco usage or history of. Patient uses alcohol, occasionally. - Family history:: not pertinent. - Hospitalizations: : No recent hospitalization is reported. Screenin:15 Abuse screen: Denies threats or abuse. Denies injuries from another. Nutritional rr5 screening: No deficits noted. Tuberculosis screening: No symptoms or risk factors identified. Fall Risk IV access (20 points). Total Pardo Fall Scale indicates No Risk (0-24 pts). Assessment: 01:10 General: Appears in no apparent distress. comfortable, Behavior is calm, cooperative, rr5 appropriate for age. Pain: Denies pain. Neuro: Level of Consciousness is awake, alert, obeys commands, Oriented to person, place, time, situation. Cardiovascular: Reports palpitations, Capillary refill < 3 seconds Patient's skin is warm and dry. Respiratory: Airway is patent Respiratory effort is even, unlabored, Respiratory pattern is regular, symmetrical. GI: Abdomen is round Reports nausea. : No signs and/or symptoms were reported regarding the genitourinary system. EENT: No signs and/or symptoms were reported regarding the EENT system. Derm: Skin is intact, is healthy with good turgor, Skin temperature is warm. Musculoskeletal: Circulation, motion, and sensation intact. Capillary refill < 3 seconds. 02:33 Reassessment: Patient and/or family updated on plan of care and expected duration. Pain ea level reassessed. Patient is alert, oriented x 3, equal unlabored respirations, skin warm/dry/pink. Discharge instruction given to patient, verbalized the understanding of instruction. Pt left ED Ambulatory tolerating well. Vital Signs: 00:09 BP 135 / 97; Pulse 91; Resp 18; Temp 98.2; Pulse Ox 98% ; Weight 86.18 kg; Height 5 ft. em 6 in. (167.64 cm); Pain 0/10; 01:15 BP 143 / 99; Pulse 77; Resp 16; Pulse Ox 99% ; rr5 02:06 BP 127 / 97; Pulse 76; Resp 16; Pulse Ox 94% ; ea 00:09 Body Mass Index 30.67 (86.18 kg, 167.64 cm) em ED Course: 02 23:40 Patient arrived in ED. ag3 02 00:12 Triage completed. em 00:13 Arm band placed on right wrist. em 01:01 Vikram Reyes RN is Primary Nurse. rr5 01:04 Sudhakar Pham MD is Attending Physician. rn 01:10 EKG done, by ED staff, reviewed by Sudhakar Pham MD. rr5 01:12 Inserted saline lock: 20 gauge in right antecubital area, using aseptic technique. rr5 ,using aseptic technique. inserted by mirtha Carvajal Blood collected. 01:15 Patient has correct armband on for positive identification. Placed in gown. Bed in low rr5 position. Call light in reach. Side rails up X2. athletic monitor on. Pulse ox on. NIBP on. 01:21 X-ray(s) taken. rr5 01:36 XRAY Chest (1 view) In Process Unspecified. EDMS 02:18 Hemal Romero MD is Referral Physician. rn 02:33 No provider procedures requiring assistance completed. IV discontinued, intact, ea bleeding controlled, No redness/swelling at site. Pressure dressing applied. Administered Medications: No medications were administered Outcome: 02:02 Discharge ordered by . rn 02:33 Discharged to home ambulatory. ea 02:33 Condition: stable 02:33 Discharge instructions given to patient, Instructed on discharge instructions, follow up and referral plans. Demonstrated understanding of instructions, follow-up care. 02:33 Patient left the ED. sg Signatures: Dispatcher [employer] EDPhillip Werner RN RN Jim Herrera, RN RN Sudhakar Nice MD MD rn Antunez, Elena, RN RN ea Gomez, Alice ag3 Vikram Reyes, RN RN rr5
[2020-05-25 02:37] VITALS: TEMP 98.2
[2020-05-25 02:40] VITALS: BP 127/97; O2SAT 94
--- NOTE | 2020-05-25 14:33 | RAD REPORT ---
EXAM DESCRIPTION: RAD - Chest Single View - 05/25/2020 1:36 am CLINICAL HISTORY: male, PALPITATIONS COMPARISON: Chest radiograph dated 04/22/2020 FINDINGS: No focal lung consolidation. No pleural effusion. No pneumothorax. Cardiomediastinal silhouette is within normal limits. No acute osseous abnormality. IMPRESSION: No acute cardiopulmonary disease. Electronically signed by: Nirav Choi DO 05/25/2020 1:58 AM BUCK PRESSER Due to temporary technical issues with the PACS/Fluency reporting system, reports are being signed by the in house radiologist without review as a courtesy to ensure prompt reporting. The interpreting r adiologist is fully responsible for the content of the report.
== END 2020-05-25 02:33 | disposition home or self-care (01) ==
LOC: ER 23:40
DX: R00.2 Palpitations (principal); I10 Essential (primary) hypertension; F41.9 Anxiety disorder, unspecified
CPT/HCPCS: 36415; 71045; 80048; 83735; 83880; 84484; 85025; 99284

== ENCOUNTER 2020-07-18 20:27 | Emergency (ER) | payer SELFPAY ==
[2020-07-18 23:01] LABS: Absolute Lymphocytes (CBC) 1.9 K/uL (0.7-4.9); Basophils % 0.6 % (0-1.3); Hematocrit 43.6 % (39.6-49.0); Lymphocytes % 21.3 % (15.3-44.8); MPV 10.4 fL (7.6-11.3); RBC Red Blood Cell Count 4.78 M/uL (4.33-5.43)
[2020-07-18] MEDS ORDERED: DIPHENHYDRAMINE 50 MG/ML VIAL ONE (23:06)
[2020-07-18] MEDS ORDERED: NA CHLORIDE 0.9% 500 ML ONE (23:06)
[2020-07-18] MEDS ORDERED: METOCLOPRAMIDE 10 MG/2mL INJ ONE (23:06)
[2020-07-18 23:13] LABS: Albumin 3.9 g/dL (3.4-5.0); Bilirubin Total 0.3 mg/dL (0.2-1.0); Potassium 4.1 mmol/L (3.5-5.1); Protein, Total 7.5 g/dL (6.4-8.2)
--- NOTE | 2020-07-18 23:48 | ER ---
Nurse's Notes [facility] [place] Name: Juwan Clements Age: 44 yrs Sex: Male : 1975 Arrival Date: 07/18/2020 Time: 20:30 Bed 14 Private MD: Diagnosis: Headache Presentation: 07/18 21:06 Chief complaint: Patient states: Pressure on back of my neck and I feel numb on the ca1 back of the L side of my head, started 2 weeks ago. I have a lot os stress so when this happens, I also have difficulty swallowing. HX of stress and is on meds for it. Coronavirus screen: Client denies travel out of the [place] in the last 14 days. headache, Client presents with at least one sign or symptom that may indicate coronavirus-19. Standard/surgical mask placed on the client. Provider contacted for isolation considerations. Ebola Screen: Patient negative for fever greater than or equal to 101.5 degrees Fahrenheit, and additional compatible Ebola Virus Disease symptoms Patient denies exposure to infectious person. Patient denies travel to an Ebola-affected area in the 21 days before illness onset. No symptoms or risks identified at this time. Initial Sepsis Screen: Does the patient meet any 2 criteria? No. Patient's initial sepsis screen is negative. Does the patient have a suspected source of infection? No. Patient's initial sepsis screen is negative. Risk Assessment: Do you want to hurt yourself or someone else? Patient reports no desire to harm self or others. 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 Onset of symptoms was July 18, 2020. 21:06 Method Of Arrival: Ambulatory ca1 21:06 Acuity: WALT 3 ca1 Historical: - Allergies: 21:10 No Known Allergies; ca1 - Home Meds: 21:10 citalopram oral [Active]; lisinopril Oral [Active]; ca1 - PMHx: 21:10 Anxiety; Hypertension; ca1 - PSHx: 21:10 None; ca1 - Immunization history:: Flu vaccine is not up to date. - Social history:: Smoking status: Patient denies any tobacco usage or history of. Screenin:05 Abuse screen: Denies threats or abuse. Nutritional screening: No deficits noted. jb4 Tuberculosis screening: No symptoms or risk factors identified. Fall Risk None identified. Assessment: 22:05 General: Appears in no apparent distress. comfortable, Behavior is calm, cooperative, jb4 appropriate for age. Pain: Complains of pain in neck Pain radiates to base of the skull, left trapezius and right trapezius Pain currently is 4 out of 10 on a pain scale. 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 Full function Gait is steady, Speech is normal, Facial symmetry appears normal, Pupils are PERRLA. Cardiovascular: Patient's skin is warm and dry. Respiratory: Airway is patent Respiratory effort is even, unlabored, Respiratory pattern is regular, symmetrical, Breath sounds are clear bilaterally. GI: No signs and/or symptoms were reported involving the gastrointestinal system. : No signs and/or symptoms were reported regarding the genitourinary system. EENT: No signs and/or symptoms were reported regarding the EENT system. Derm: Skin is intact, Skin is pink, warm \T\ dry. Musculoskeletal: Circulation, motion, and sensation intact. Range of motion: intact in all extremities. 22:53 Reassessment: Patient appears in no apparent distress at this time. Patient and/or jb4 family updated on plan of care and expected duration. Pain level reassessed. Patient is alert, oriented x 3, equal unlabored respirations, skin warm/dry/pink. 07/19 00:07 Reassessment: Patient appears in no apparent distress at this time. Patient and/or jb4 family updated on plan of care and expected duration. Pain level reassessed. Patient is alert, oriented x 3, equal unlabored respirations, skin warm/dry/pink. Patient states feeling better. Patient states symptoms have improved. Vital Signs: 07/18 21:06 BP 121 / 86; Pulse 70; Resp 16 S; Temp 96.9(TE); Pulse Ox 99% on R/A; Weight 86.18 kg ca1 (R); Height 5 ft. 6 in. (167.64 cm) (R); Pain 0/10; 22:05 BP 125 / 91; Pulse 59; Resp 16; Pulse Ox 100% on R/A; jb4 22:45 BP 125 / 93; Pulse 64; Resp 16; Pulse Ox 100% on R/A; jb4 07/19 00:00 BP 110 / 77; Pulse 58; Resp 16; Pulse Ox 100% on R/A; jb4 07/18 21:06 Body Mass Index 30.67 (86.18 kg, 167.64 cm) ca1 ED Course: 07/18 20:30 Patient arrived in ED. ag3 21:10 Triage completed. ca1 21:10 Arm band placed on right wrist. ca1 21:53 Martin Valdez PA is PHCP. [facility] 21:53 Thais Burgos MD is Attending Physician. [facility] 21:55 Ori Talbert, NEGRO is Primary Nurse. jb4 22:05 Patient has correct armband on for positive identification. Bed in low position. Call jb4 light in reach. Side rails up X 1. Pulse ox on. NIBP on. 22:36 CT Head Brain wo Cont In Process Unspecified. EDMS 22:40 Initial lab(s) drawn, by me, sent to lab. Inserted saline lock: 18 gauge in right jb4 antecubital area, using aseptic technique. Blood collected. 23:47 Joseph Wood MD is Referral Physician. [facility] 07/19 00:00 No provider procedures requiring assistance completed. IV discontinued, intact, jb4 bleeding controlled, No redness/swelling at site. Pressure dressing applied. Administered Medications: 07/18 22:52 Drug: diphenhydrAMINE 25 mg Route: IVP; Site: right antecubital; jb4 23:30 Follow up: Response: No adverse reaction; Marked relief of symptoms jb4 22:53 Drug: NS 0.9% 500 ml Route: IV; Rate: bolus; Site: right antecubital; jb4 23:45 Follow up: Response: No adverse reaction; Marked relief of symptoms; IV Status: jb4 Completed infusion; IV Intake: 500ml 22:53 Drug: Reglan (metoCLOPramide) 20 mg {Note: Administerd via 500ml NS bolus.} Route: IVP; jb4 Site: right antecubital; 23:45 Follow up: Response: No adverse reaction; Marked relief of symptoms jb4 Intake: 23:45 IV: 500ml; Total: 500ml. jb4 Outcome: 23:48 Discharge ordered by . [facility] 07/19 00:08 Discharged to home ambulatory. jb4 Condition: stable Discharge instructions given to patient, Instructed on discharge instructions, follow up and referral plans. Demonstrated understanding of instructions, follow-up care. 00:09 Patient left the ED. jb4 Signatures: Dispatcher [employer] EDMartin Mendez PA PA jmm Bryson, James RN RN jb4 Lianne Larsen3 Alysia Lagos RN RN ca1
--- NOTE | 2020-07-18 23:49 | EDPHYS ---
Physician Documentation [facility] Name: Juwan Clements Age: 44 yrs Sex: Male : 1975 Arrival Date: 07/18/2020 Time: 20:30 Bed 14 Private MD: ED Physician Thais Burgos HPI: 07/18 22:11 This 44 yrs old Male presents to ER via Ambulatory with complaints of Headache.jmm 22:11 The patient complains of pain to the left side of the back of head, left occipital area jmm and left base of the skull. Onset: The symptoms/episode began/occurred gradually, 2 week(s) ago. Associated signs and symptoms: Pertinent negatives: altered mental status, dizziness, fever, neck stiffness, paresthesias, Photophobia rash. This is a 44 year old male with a history of htn, anxiety that presents to the ED with complaints of left sided headache which radiates down the left side of the neck. Denies chest pain, shortness of breath. Symptoms began approx 2 weeks ago and is not relieved with otc medicaiton. Patient has had a similar headache in the past and attributes it to anxiety. . Historical: - Allergies: 21:10 No Known Allergies; ca1 - Home Meds: 21:10 citalopram oral [Active]; lisinopril Oral [Active]; ca1 - PMHx: 21:10 Anxiety; Hypertension; ca1 - PSHx: 21:10 None; ca1 - Immunization history:: Flu vaccine is not up to date. - Social history:: Smoking status: Patient denies any tobacco usage or history of. ROS: 22:11 Constitutional: Negative for fever, chills, and weight loss, Cardiovascular: Negative jmm for chest pain, palpitations, and edema, Respiratory: Negative for shortness of breath, cough, wheezing, and pleuritic chest pain. 22:11 Neuro: Positive for headache. 22:11 All other systems are negative. Exam: 22:11 Constitutional: This is a well developed, well nourished patient who is awake, alert, jmm and in no acute distress. Head/Face: atraumatic. Eyes: EOMI, no conjunctival erythema appreciated ENT: Moist Mucus Membranes Neck: Trachea midline, Supple Chest/axilla: Normal chest wall appearance and motion. Cardiovascular: Regular rate and rhythm. No edema appreciated Respiratory: Normal respirations, no respiratory distress appreciated Abdomen/GI: Non distended, soft Back: Normal ROM Skin: General appearance color normal MS/ Extremity: Moves all extremities, no obvious deformities appreciated, no edema noted to the lower extremities Neuro: Awake and alert, normal gait Psych: Behavior is normal, Mood is normal, Patient is cooperative and pleasant Vital Signs: 21:06 BP 121 / 86; Pulse 70; Resp 16 S; Temp 96.9(TE); Pulse Ox 99% on R/A; Weight 86.18 kg ca1 (R); Height 5 ft. 6 in. (167.64 cm) (R); Pain 0/10; 22:05 BP 125 / 91; Pulse 59; Resp 16; Pulse Ox 100% on R/A; jb4 22:45 BP 125 / 93; Pulse 64; Resp 16; Pulse Ox 100% on R/A; jb4 07/19 00:00 BP 110 / 77; Pulse 58; Resp 16; Pulse Ox 100% on R/A; jb4 07/18 21:06 Body Mass Index 30.67 (86.18 kg, 167.64 cm) ca1 MDM: 07/18 22:11 Patient medically screened. [facility] 23:46 Data reviewed: vital signs, nurses notes. Counseling: I had a detailed discussion with alejandra the patient and/or guardian regarding: the historical points, exam findings, and any diagnostic results supporting the discharge/admit diagnosis, lab results, radiology results, the need for outpatient follow up, to return to the emergency department if symptoms worsen or persist or if there are any questions or concerns that arise at home. ED course: COLEMAN relieved in the ED. I do not suspect meningitis, sah at this time. Similar character in the past, afebrile, no nuchal rigidity. patient is advised to follow up with neuro for further evaluation. Patient is otherwise given strict return precautions. patient understood and agrees with the plan of care. . 07/18 22:17 Order name: CBC with Diff; Complete Time: 23:05 [facility] 07/18 22:17 Order name: CMP; Complete Time: 23:17 [facility] 07/18 22:16 Order name: CT Head Brain wo Cont [facility] 07/18 22:17 Order name: Saline Lock; Complete Time: 22:42 jmm Administered Medications: 22:52 Drug: diphenhydrAMINE 25 mg Route: IVP; Site: right antecubital; jb4 23:30 Follow up: Response: No adverse reaction; Marked relief of symptoms jb4 22:53 Drug: NS 0.9% 500 ml Route: IV; Rate: bolus; Site: right antecubital; jb4 23:45 Follow up: Response: No adverse reaction; Marked relief of symptoms; IV Status: jb4 Completed infusion; IV Intake: 500ml 22:53 Drug: Reglan (metoCLOPramide) 20 mg {Note: Administerd via 500ml NS bolus.} Route: IVP; jb4 Site: right antecubital; 23:45 Follow up: Response: No adverse reaction; Marked relief of symptoms jb4 Disposition: 07/19 00:47 Co-signature as Attending Physician, Thais Burgos MD. [email or web address] Disposition: 07/18/20 23:48 Discharged to Home. Impression: Headache. - Condition is Stable. - Discharge Instructions: General Headache Without Cause. - Medication Reconciliation Form, Thank You Letter, Antibiotic Education, Prescription Opioid Use form. - Follow up: Joseph Wood MD; When: 2 - 3 days; Reason: Recheck today's complaints, Continuance of care, Re-evaluation by your physician. Signatures: Dispatcher [employer] EDMS Martin Valdez PA PA jmm Bryson, James, RN RN jbThais Cole MD MD ma2 Acob, Cheryl, RN RN ca1 Corrections: (The following items were deleted from the chart) 00:09 07/18 23:48 07/18/2020 23:48 Discharged to Home. Impression: Headache. Condition is jb4 Stable. Forms are Medication Reconciliation Form, Thank You Letter, Antibiotic Education, Prescription Opioid Use. Follow up: Joseph Wood; When: 2 - 3 days; Reason: Recheck today's complaints, Continuance of care, Re-evaluation by your physician. alejandra
[2020-07-19 00:20] VITALS: TEMP 96.9
[2020-07-19 00:21] VITALS: O2SAT 100
[2020-07-19 00:24] VITALS: BP 110/77
--- NOTE | 2020-07-19 14:14 | RAD REPORT ---
EXAM DESCRIPTION: CT HEAD WITHOUT IV CONTRAST CLINICAL HISTORY: Male, 44 years old, left sided headache COMPARISON: None. TECHNIQUE: CT acquisition of the head without contrast. Coronal and sagittal reformatted images prov ided. This exam was performed according to departmental dose-optimization program which includes auto mated exposure control, adjustment of the mA and/or kV according to patient size, and/or use of itera tive reconstruction technique. FINDINGS: No intracranial hemorrhage or extraaxial fluid collection. No mass effect or midline shift. Ventricles, cisterns, and sulci are normal in size and configuration. Brain parenchymal attenuation and early-white matter differentiation are within normal limits. The calvarium and imaged facial bones are intact. Overlying soft tissues are normal. Paranasal sinuses and mastoid cells are clear. Orbits are unremarkable. IMPRESSION: No acute intracranial findings. Electronically signed by: Phillip Oakley MD 07/18/2020 10:43 PM CDT Due to temporary technical issues with the PACS/Fluency reporting system, reports are being signed by the in house radiologists without review as a courtesy to insure prompt reporting. The interpreting radiologist is fully responsible for the content of the report.
== END 2020-07-19 00:09 | disposition home or self-care (01) ==
LOC: ER 20:27
DX: R51.9 Headache, unspecified (principal); F41.9 Anxiety disorder, unspecified; I10 Essential (primary) hypertension
CPT/HCPCS: 36415; 70450; 80053; 85025; 96361; 96374; 96375; 99284; J1200; J2765; J7040

== ENCOUNTER 2020-08-19 23:44 | Emergency (ER) | payer SELFPAY ==
[2020-08-20 01:08] LABS: Absolute Lymphocytes (CBC) 2.2 K/uL (0.7-4.9); Basophils % 0.7 % (0-1.3); Hematocrit 43.2 % (39.6-49.0); Lymphocytes % 29.1 % (15.3-44.8); MPV 10.1 fL (7.6-11.3)
[2020-08-20 01:14] LABS: Protime INR 0.95
[2020-08-20] MEDS ORDERED: DIPHENHYDRAMINE 50 MG/ML VIAL ONE (01:28)
[2020-08-20] MEDS ORDERED: NA CHLORIDE 0.9% 1,000 ML ONE (01:28)
[2020-08-20] MEDS ORDERED: METOCLOPRAMIDE 10 MG/2mL INJ ONE (01:28)
[2020-08-20 01:34] LABS: ALT/SGPT 46 U/L (12-78); AST/SGOT 29 U/L (15-37); Albumin 3.9 g/dL (3.4-5.0); Alkaline Phosphatase 85 U/L (45-117); BUN Blood Urea Nitrogen 17 mg/dL (7-18); Bicarbonate 28 mmol/L (21-32); Bilirubin Direct < 0.1 mg/dL (0-0.2); Bilirubin Total 0.3 mg/dL (0.2-1.0); Glucose Level 100 mg/dL (74-106); Magnesium 2.4 mg/dL (1.8-2.4); NT PRO-BNP 11 pg/mL (<125); Potassium 3.9 mmol/L (3.5-5.1); Protein, Total 7.5 g/dL (6.4-8.2); Sodium Level 140 mmol/L (136-145); Troponin (Emerg Dept Use Only) < 0.02 ng/mL (0.0-0.045)
[2020-08-20 03:19] LABS: Urine Blood Negative (Negative); Urine Glucose Negative (Negative); Urine Protein Negative (Negative); Urine pH 6.5 (5.0-7.0)
[2020-08-20 03:40] LABS: Barbiturates NEGATIVE (NEGATIVE); Benzodiazepines NEGATIVE (NEGATIVE); Cocaine NEGATIVE (NEGATIVE); METHAMPHETAM NEGATIVE (NEGATIVE); Methadone NEGATIVE (NEGATIVE); Opiates NEGATIVE (NEGATIVE); Phencyclidine NEGATIVE (NEGATIVE); THC Cannibis NEGATIVE (NEGATIVE)
--- NOTE | 2020-08-20 03:58 | EDPHYS ---
Physician Documentation [facility] Name: Juwan Clements Age: 44 yrs Sex: Male : 1975 Arrival Date: 08/20/2020 Time: 00:04 Bed 16 Private MD: ED Physician Albino Andrade HPI: 08/20 01:00 This 44 yrs old Male presents to ER via Ambulatory with complaints of Headache.mh7 01:01 The patient complains of pain to the left side of the back of head. The patient mh7 describes the headache as intermittent, throbbing. Onset: The symptoms/episode began/occurred 1 week(s) ago. 01:02 Associated signs and symptoms: Pertinent positives: intermittent palpitations, mh7 intermittent feeling of tongue swelling, Pertinent negatives: altered mental status, dizziness, fever, malaise, nausea, neck stiffness, paresthesias, Photophobia rash, sinus congestion, sinus tenderness, vision changes, vision loss, vomiting, weakness, vertigo. Severity of symptoms: At its worst the pain was moderate, 4 day(s) ago, in the emergency department the pain has improved, moderately. Headache History: The patient has had previous headaches and this one is similar to previous episodes. Historical: - Allergies: 00:17 No Known Allergies; iw - Home Meds: 00:17 Lisinopril Oral once daily [Active]; citalopram oral once daily [Active]; iw - PMHx: 00:17 Anxiety; Hypertension; iw - PSHx: 00:17 None; iw - Immunization history:: Adult Immunizations not immunized, Client reports having NOT received the Covid vaccine. - Social history:: Smoking status: Patient denies any tobacco usage or history of. ROS: 01:02 Constitutional: Negative for fever, chills, and weight loss, Eyes: Negative for injury, mh7 pain, redness, and discharge, Neck: Negative for injury, pain, and swelling, Respiratory: Negative for shortness of breath, cough, wheezing, and pleuritic chest pain, Abdomen/GI: Negative for abdominal pain, nausea, vomiting, diarrhea, and constipation, : Negative for injury, bleeding, discharge, and swelling, MS/Extremity: Negative for injury and deformity, Skin: Negative for injury, rash, and discoloration, Neuro: Negative for headache, weakness, numbness, tingling, and seizure, Psych: Negative for depression, anxiety, suicide ideation, homicidal ideation, and hallucinations, Allergy/Immunology: Negative for hives, rash, and allergies, Endocrine: Negative for neck swelling, polydipsia, polyuria, polyphagia, and marked weight changes, Hematologic/Lymphatic: Negative for swollen nodes, abnormal bleeding, and unusual bruising. Exam: 01:02 Constitutional: This is a well developed, well nourished patient who is awake, alert, mh7 and in no acute distress. Head/Face: Normocephalic, atraumatic. Eyes: Pupils equal round and reactive to light, extra-ocular motions intact. Lids and lashes normal. Conjunctiva and sclera are non-icteric and not injected. Cornea within normal limits. Periorbital areas with no swelling, redness, or edema. ENT: Nares patent. No nasal discharge, no septal abnormalities noted. Tympanic membranes are normal and external auditory canals are clear. Oropharynx with no redness, swelling, or masses, exudates, or evidence of obstruction, uvula midline. Mucous membranes moist. Neck: Trachea midline, no thyromegaly or masses palpated, and no cervical lymphadenopathy. Supple, full range of motion without nuchal rigidity, or vertebral point tenderness. No Meningismus. Chest/axilla: Normal chest wall appearance and motion. Nontender with no deformity. No lesions are appreciated. Cardiovascular: Regular rate and rhythm with a normal S1 and S2. No gallops, murmurs, or rubs. Normal PMI, no JVD. No pulse deficits. Respiratory: Lungs have equal breath sounds bilaterally, clear to auscultation and percussion. No rales, rhonchi or wheezes noted. No increased work of breathing, no retractions or nasal flaring. Abdomen/GI: Soft, non-tender, with normal bowel sounds. No distension or tympany. No guarding or rebound. No evidence of tenderness throughout. Back: No spinal tenderness. No costovertebral tenderness. Full range of motion. Skin: Warm, dry with normal turgor. Normal color with no rashes, no lesions, and no evidence of cellulitis. MS/ Extremity: Pulses equal, no cyanosis. Neurovascular intact. Full, normal range of motion. Neuro: Awake and alert, GCS 15, oriented to person, place, time, and situation. Cranial nerves II-XII grossly intact. Motor strength 5/5 in all extremities. Sensory grossly intact. Cerebellar exam normal. Normal gait. Psych: Awake, alert, with orientation to person, place and time. Behavior, mood, and affect are within normal limits. Vital Signs: 00:14 BP 112 / 82; Pulse 74; Resp 16; Temp 97.2; Pulse Ox 99% ; Weight 81.65 kg; Height 5 ft. iw 6 in. (167.64 cm); 00:45 BP 110 / 80; Pulse 78; Resp 16; Temp 98.7; Pulse Ox 98% ; Pain 0/10; cr4 02:00 BP 99 / 10; Pulse 59; Resp 15; Pulse Ox 99% ; Pain 0/10; cr4 03:00 BP 102 / 69; Pulse 59; Resp 14; Pulse Ox 99% ; Pain 0/10; cr4 04:00 BP 104 / 66; Pulse 59; Resp 16; Temp 97.7; Pulse Ox 100% ; Pain 0/10; cr4 00:14 Body Mass Index 29.05 (81.65 kg, 167.64 cm) iw Ftauma Coma Score: 03:55 Eye Response: spontaneous(4). Verbal Response: oriented(5). Motor Response: obeys mh7 commands(6). Total: 15. MDM: 03:55 Differential diagnosis: cluster headache, migraine, tension headache. Data reviewed: [facility] vital signs, nurses notes, old medical records, lab test result(s), cardiac enzymes, CBC, electrolytes, urinalysis, urine drug screen. Data interpreted: Pulse oximetry: on room air is 98 %. Interpretation: normal. Counseling: I had a detailed discussion with the patient and/or guardian regarding: the historical points, exam findings, and any diagnostic results supporting the discharge/admit diagnosis, lab results, radiology results, the need for outpatient follow up, to return to the emergency department if symptoms worsen or persist or if there are any questions or concerns that arise at home. Response to treatment: the patient's symptoms have resolved after treatment, the patient's blood pressure is in an acceptable range, mental status has returned to baseline, the patient no longer shows bradycardia, the patient is not short of breath, the patient is not tachycardic, the patient's pain is gone, the patient's temperature has normalized. 03:57 Patient medically screened. [facility] 08/20 00:37 Order name: Basic Metabolic Panel [facility] 08/20 00:37 Order name: CBC with Diff [facility] 08/20 00:37 Order name: LFT's [facility] 08/20 00:37 Order name: Magnesium [facility] 08/20 00:37 Order name: NT PRO-BNP; Complete Time: 01:35 [facility] 08/20 00:37 Order name: PT-INR; Complete Time: 01:35 [facility] 08/20 00:37 Order name: Troponin (emerg Dept Use Only); Complete Time: 01:35 [facility] 08/20 00:38 Order name: Basic Metabolic Panel; Complete Time: 01:35 [facility] 08/20 00:38 Order name: CBC with Automated Diff; Complete Time: :35 [facility] 08/20 00:38 Order name: Liver (Hepatic) Function; Complete Time: 01:35 [facility] 08/20 00:38 Order name: Magnesium; Complete Time: 01:35 [facility] 08/20 01:35 Order name: UDS; Complete Time: 03:49 [facility] 08/20 02:42 Order name: TSH [facility] 08/20 02:42 Order name: D-Dimer [facility] 08/20 00:37 Order name: XRAY Chest (1 view) [facility] 08/20 00:37 Order name: EKG; Complete Time: 00:38 [facility] 08/20 00:37 Order name: Cardiac monitoring; Complete Time: 01:28 [facility] 08/20 00:37 Order name: EKG - Nurse/Tech; Complete Time: 01:00 [facility] 08/20 00:37 Order name: IV Saline Lock; Complete Time: 01:00 [facility] 08/20 00:37 Order name: Labs collected and sent; Complete Time: 01:00 [facility] 08/20 00:37 Order name: O2 Per Protocol; Complete Time: 01:28 [facility] 08/20 00:37 Order name: O2 Sat Monitoring; Complete Time: 01:28 [facility] 08/20 01:35 Order name: Urine Dipstick-Ancillary (obtain specimen); Complete Time: 03:20 [facility] 08/20 02:42 Order name: Thyroid Stimulating Hormone; Complete Time: 03:21 [facility] 08/20 02:42 Order name: D-Dimer; Complete Time: 03:15 EDMS 08/20 03:18 Order name: Urine Dipstick-Ancillary; Complete Time: : EDMS Administered Medications: 01:20 Drug: NS 0.9% 1000 ml Route: IV; Rate: 1000 ml; Site: left antecubital; cr4 02:30 Follow up: IV Status: Completed infusion; IV Intake: 1000ml cr4 01:20 Drug: Reglan (metoCLOPramide) 10 mg Route: IVP; Site: left antecubital; cr4 01:20 Follow up: Response: No adverse reaction cr4 01:20 Drug: Benadryl (diphenhydrAMINE) 25 mg Route: IVP; Site: left antecubital; cr4 01:30 Follow up: Response: No adverse reaction cr4 Disposition: 08/20/20 03:57 Discharged to Home. Impression: Headache, Palpitations. - Condition is Stable. - Discharge Instructions: Palpitations, [id number], General Headache Without Cause, [id number]. - Medication Reconciliation Form, Thank You Letter, Antibiotic Education, Prescription Opioid Use form. - Follow up: Private Physician; When: 1 - 2 days; Reason: Worsening of condition, Recheck today's complaints, Continuance of care, Re-evaluation by your physician. Follow up: Derek Amaro MD; When: 1 - 2 days; Reason: Worsening of condition, Recheck today's complaints. Follow up: Joseph Wood MD; When: 1 - 2 days; Reason: Worsening of condition, Recheck today's complaints. - Problem is an acute exacerbation. - Symptoms have improved. Signatures: Dispatcher [employer] EDOK Isabel Paulino RN RN Joanie Hutchison RN RN cr4 Albino Andrade MD MD 7 Corrections: (The following items were deleted from the chart) 03:58 03:57 08/20/2020 03:57 Discharged to Home. Impression: Headache; Palpitations. mh7 Condition is Stable. Forms are Medication Reconciliation Form, Thank You Letter, Antibiotic Education, Prescription Opioid Use. Follow up: Private Physician; When: 1 - 2 days; Reason: Worsening of condition, Recheck today's complaints, Continuance of care, Re-evaluation by your physician. Problem is an acute exacerbation. Symptoms have improved. mh7 04:27 03:58 08/20/2020 03:57 Discharged to Home. Impression: Headache; Palpitations. cr4 Condition is Stable. Discharge Instructions: Palpitations, [id number], General Headache Without Cause, [id number]. Forms are Medication Reconciliation Form, Thank You Letter, Antibiotic Education, Prescription Opioid Use. Follow up: Private Physician; When: 1 - 2 days; Reason: Worsening of condition, Recheck today's complaints, Continuance of care, Re-evaluation by your physician. Follow up: Derek Amaro; When: 1 - 2 days; Reason: Worsening of condition, Recheck today's complaints. Follow up: Joseph Wood; When: 1 - 2 days; Reason: Worsening of condition, Recheck today's complaints. Problem is an acute exacerbation. Symptoms have improved. 7
--- NOTE | 2020-08-20 03:58 | ER ---
Nurse's Notes [facility] Name: Juwan Clements Age: 44 yrs Sex: Male : 1975 Arrival Date: 08/20/2020 Time: 00:04 Bed 16 Private MD: Diagnosis: Headache;Palpitations Presentation: 08/20 00:14 Chief complaint: Patient states: pain to back of head, intermittent X 1 week, tongue iw feels swollen like it's going to the back of his throat X 1 week , also has pain o miah flank area X 3 days , also has dry mouth , chills and dizzy. Coronavirus screen: Client presents with at least one sign or symptom that may indicate coronavirus-19. Ebola Screen: Patient negative for fever greater than or equal to 101.5 degrees Fahrenheit, and additional compatible Ebola Virus Disease symptoms Patient denies exposure to infectious person. Patient denies travel to an Ebola-affected area in the 21 days before illness onset. No symptoms or risks identified at this time. Initial Sepsis Screen: Does the patient meet any 2 criteria? No. Patient's initial sepsis screen is negative. Does the patient have a suspected source of infection? No. Patient's initial sepsis screen is negative. Risk Assessment: Do you want to hurt yourself or someone else? Patient reports no desire to harm self or others. Onset of symptoms was August 13, 2020. 00:14 Method Of Arrival: Ambulatory iw 00:14 Acuity: WALT 3 iw Triage Assessment: 04:26 Headache History: The patient has had previous headaches and this one is similar to cr4 previous episodes. Pain: Also complains of. Historical: - Allergies: 00:17 No Known Allergies; iw - Home Meds: 00:17 Lisinopril Oral once daily [Active]; citalopram oral once daily [Active]; iw - PMHx: 00:17 Anxiety; Hypertension; iw - PSHx: 00:17 None; iw - Immunization history:: Adult Immunizations not immunized, Client reports having NOT received the Covid vaccine. - Social history:: Smoking status: Patient denies any tobacco usage or history of. Screenin:25 Abuse screen: Denies threats or abuse. Nutritional screening: No deficits noted. cr4 Tuberculosis screening: No symptoms or risk factors identified. Fall Risk None identified. Assessment: 00:45 General: Appears in no apparent distress. comfortable, Behavior is calm, cooperative, cr4 appropriate for age. Pain: Denies pain. Neuro: Level of Consciousness is awake, alert, obeys commands, Oriented to person, place, time, Appropriate for age Moves all extremities. Reports dizziness, 2 hours before arriving to the ER, Denies weakness difficulty swallowing, numbness headache. Cardiovascular: Reports palpitations, since 2 hours before arriving to ER that lasted a couple of minutes. Heart tones S1 S2 Capillary refill < 3 seconds Rhythm is regular. Cardiovascular: Parent/caregiver reports patient has had palpitations, since 2 hours before ER arrival that lasted a couple of minutes. Respiratory: Breath sounds are clear bilaterally. Denies shortness of breath labored breathing, pain with respiration. GI: Patient currently denies nausea, vomiting. : No deficits noted. EENT: Reports ringing in left ear that lasted a couple of minutes 2 hours before arrival to the ER.. Denies photophobia difficulty swallowing. Derm: No deficits noted. Musculoskeletal: No deficits noted. 02:00 Reassessment: No changes from previously documented assessment. Patient and/or family cr4 updated on plan of care and expected duration. Pain level reassessed. Cardiovascular: Denies chest pain, lightheadedness, nausea, palpitations, shortness of breath, syncope. 03:00 Reassessment: No changes from previously documented assessment. Patient and/or family cr4 updated on plan of care and expected duration. Pain level reassessed. Patient denies pain at this time. Cardiovascular: Denies chest pain, palpitations, shortness of breath, syncope. 04:00 Reassessment: No changes from previously documented assessment. Patient and/or family cr4 updated on plan of care and expected duration. Pain level reassessed. Cardiovascular: Denies chest pain, lightheadedness, nausea, palpitations, shortness of breath. Vital Signs: 00:14 BP 112 / 82; Pulse 74; Resp 16; Temp 97.2; Pulse Ox 99% ; Weight 81.65 kg; Height 5 ft. iw 6 in. (167.64 cm); 00:45 BP 110 / 80; Pulse 78; Resp 16; Temp 98.7; Pulse Ox 98% ; Pain 0/10; cr4 02:00 BP 99 / 10; Pulse 59; Resp 15; Pulse Ox 99% ; Pain 0/10; cr4 03:00 BP 102 / 69; Pulse 59; Resp 14; Pulse Ox 99% ; Pain 0/10; cr4 04:00 BP 104 / 66; Pulse 59; Resp 16; Temp 97.7; Pulse Ox 100% ; Pain 0/10; cr4 00:14 Body Mass Index 29.05 (81.65 kg, 167.64 cm) iw [place] Coma Score: 03:55 Eye Response: spontaneous(4). Verbal Response: oriented(5). Motor Response: obeys mh7 commands(6). Total: 15. ED Course: 00:04 Patient arrived in ED. am4 00:16 Triage completed. iw 00:17 Arm band placed on. iw 00:20 Albino Andrade MD is Attending Physician. mh7 00:50 Inserted saline lock: 20 gauge in left antecubital area, using aseptic technique. cr4 00:59 Joanie Hutchison, NEGRO is Primary Nurse. cr4 01:07 XRAY Chest (1 view) In Process Unspecified. EDMS 01:28 Basic Metabolic Panel Sent. cr4 01:29 Patient has correct armband on for positive identification. Bed in low position. Side cr4 rails up X 1. shelter monitor on. Pulse ox on. NIBP on. 01:29 No provider procedures requiring assistance completed. cr4 03:58 Derek Amaro MD is Referral Physician. mh7 03:58 Joseph Wood MD is Referral Physician. mh7 04:25 IV discontinued, intact, bleeding controlled, No redness/swelling at site. cr4 Administered Medications: 01:20 Drug: NS 0.9% 1000 ml Route: IV; Rate: 1000 ml; Site: left antecubital; cr4 02:30 Follow up: IV Status: Completed infusion; IV Intake: 1000ml cr4 01:20 Drug: Reglan (metoCLOPramide) 10 mg Route: IVP; Site: left antecubital; cr4 01:20 Follow up: Response: No adverse reaction cr4 01:20 Drug: Benadryl (diphenhydrAMINE) 25 mg Route: IVP; Site: left antecubital; cr4 01:30 Follow up: Response: No adverse reaction cr4 Intake: 02:30 IV: 1000ml; Total: 1000ml. cr4 Outcome: 03:57 Discharge ordered by . edgardo 04:25 Discharged to home ambulatory. cr4 04:25 Condition: stable 04:25 Discharge instructions given to patient, Instructed on discharge instructions, follow up and referral plans. Demonstrated understanding of instructions, follow-up care. 04:27 Patient left the ED. cr4 Signatures: Dispatcher [employer] Isabel Yin RN RN iw Joanie Hutchison RN RN cr4 Albino Andrade MD MD mh7 Martinez, Ashley am
[2020-08-20 04:41] VITALS: BP 104/66; TEMP 97.7; O2SAT 100
--- NOTE | 2020-08-20 07:51 | RAD REPORT ---
EXAM DESCRIPTION: Ervin Single View08/20/2020 1:01 am CLINICAL HISTORY: Palpitation COMPARISON: May 2020 FINDINGS: The lungs appear clear of acute infiltrate. The heart is normal size IMPRESSION: No acute abnormalities displayed
== END 2020-08-20 04:27 | disposition home or self-care (01) ==
LOC: ER 23:44
DX: R00.2 Palpitations (principal); I10 Essential (primary) hypertension; F41.9 Anxiety disorder, unspecified
CPT/HCPCS: 36415; 71045; 80048; 80076; 80307; 81003; 83735; 83880; 84443; 84484; 85025; 85379; 85610; 93005; 96361; 96374; 96375; 99284; J1200; J2765; J7030

== ENCOUNTER 2020-10-04 23:21 | Emergency (ER) | payer SELFPAY ==
[2020-10-05] MEDS ORDERED: LORAZEPAM 1 MG TABLET ONE (00:34)
--- NOTE | 2020-10-05 00:48 | ER ---
Nurse's Notes [facility] Name: Juwan Clements Age: 45 yrs Sex: Male : 1975 Arrival Date: 10/04/2020 Time: 23:25 Bed 18 Private MD: Diagnosis: Anxiety disorder, unspecified;Headache Presentation: 10/04 23:30 Chief complaint: Patient states: Reports pain to back of neck, reports he is having a ea hard time sleeping. Reports he saw his doctor today for sleep medication. Reports that he is scared to take the medication due to his anxiety. Coronavirus screen: At this time, the client does not indicate any symptoms associated with coronavirus-19. Ebola Screen: No symptoms or risks identified at this time. Initial Sepsis Screen: Does the patient meet any 2 criteria? No. Patient's initial sepsis screen is negative. Does the patient have a suspected source of infection? No. Patient's initial sepsis screen is negative. Risk Assessment: Do you want to hurt yourself or someone else? Patient reports no desire to harm self or others. Onset of symptoms was October 04, 2020. 23:30 Method Of Arrival: Ambulatory ea 23:30 Acuity: WALT 3 ea Historical: - Allergies: 23:33 No Known Allergies; ea - PMHx: 23:33 Hypertension; Anxiety; ea - Immunization history:: Adult Immunizations up to date. - Social history:: Smoking status: Patient denies any tobacco usage or history of. Screenin:32 Abuse screen: Denies threats or abuse. Nutritional screening: No deficits noted. ea Tuberculosis screening: No symptoms or risk factors identified. Fall Risk None identified. Assessment: 10/05 00:05 General: Appears in no apparent distress. Behavior is calm, cooperative, appropriate ea for age. Pain: Complains of pain in left side of head. Neuro: Level of Consciousness is awake, alert, obeys commands, Oriented to person, place, time. 00:54 Reassessment: Patient and/or family updated on plan of care and expected duration. Pain ea level reassessed. Patient is alert, oriented x 3, equal unlabored respirations, skin warm/dry/pink. Discharge instruction given to patient verbalized the understanding of instruction. Pt left ED ambulatory tolerating well. Vital Signs: 10/04 23:36 BP 110 / 77; Pulse 67; Resp 18; Temp 97.2; Pulse Ox 98% ; Weight 81.65 kg; Height 5 ft. ea 6 in. (167.64 cm); 23:36 Body Mass Index 29.05 (81.65 kg, 167.64 cm) ea ED Course: 23:25 Patient arrived in ED. es 23:32 Triage completed. ea 23:32 Patient has correct armband on for positive identification. Bed in low position. Call ea light in reach. Side rails up X2. 23:50 Jerzy Venegas PA is PHCP. cp 23:50 Thais Burgos MD is Attending Physician. 10/05 00:05 Ruth Morrell, NEGRO is Primary Nurse. ea 00:05 Arm band placed on right wrist. Patient placed in an exam room, on a stretcher, on ea pulse oximetry. 00:33 CT Head Brain wo Cont In Process Unspecified. EDMS 00:55 No provider procedures requiring assistance completed. Patient did not have IV access ea during this emergency room visit. Administered Medications: 00:15 Drug: Ativan (LORazepam) 1 mg Route: PO; ea 00:55 Follow up: Response: No adverse reaction ea Outcome: 00:47 Discharge ordered by MD. cp 00:55 Discharged to home ambulatory, with family. ea 00:55 Condition: stable 00:55 Discharge instructions given to patient, Instructed on discharge instructions, follow up and referral plans. medication usage, Demonstrated understanding of instructions, follow-up care, medications, Prescriptions given X 1. 00:55 Patient left the ED. ea Signatures: Dispatcher [employer] EDDC Karen Whitman Jerzy Venegas PA PA cp Antunez, Elena, RN RN ea
--- NOTE | 2020-10-05 00:49 | EDPHYS ---
Physician Documentation [facility] Name: Juwan Clements Age: 45 yrs Sex: Male : 1975 Arrival Date: 10/04/2020 Time: 23:25 Bed 18 Private MD: ED Physician Thais Burgos HPI: 10/05 00:15 This 45 yrs old Male presents to ER via Ambulatory with complaints of Neck cp Problem, Sore Throat, Headache, Breathing Difficulty. 00:15 The patient complains of pain to the left occipital area and left base of the skull. cp The patient describes the headache as aching, waxing and waning. Onset: The symptoms/episode began/occurred for years. Associated signs and symptoms: Pertinent positives: neck pain, Pertinent negatives: fever, neck stiffness, paresthesias. 00:15 Severity of symptoms: in the emergency department the pain a " 5" out of "10". cp 00:15 Patient reports history of anxiety and reports headache worsens when he feels like he cp is having an anxiety attack. Notices difficulty swallowing, shortness of breath. Patient reports pcp, Magdalene Allen, prescribed citalopram in the past but medication caused him to be drowsy. Patient reports stopping medication and being prescribed Seroquel today which he has not started. Historical: - Allergies: 10/04 23:33 No Known Allergies; ea - PMHx: 23:33 Hypertension; Anxiety; ea - Immunization history:: Adult Immunizations up to date. - Social history:: Smoking status: Patient denies any tobacco usage or history of. ROS: 10/05 00:20 Constitutional: Negative for body aches, chills, fever, poor PO intake. cp 00:20 Eyes: Negative for injury, pain, redness, and discharge. cp 00:20 ENT: Negative for ear pain, sore throat, difficulty swallowing, difficulty handling secretions. 00:20 Cardiovascular: Negative for chest pain, edema, palpitations. 00:20 Respiratory: Negative for cough, wheezing. 00:20 Abdomen/GI: Negative for abdominal pain, vomiting, diarrhea, constipation. 00:20 Neuro: Positive for headache, Negative for altered mental status, numbness, tingling, weakness. 00:20 Psych: Positive for anxiety, Negative for depression, suicide gesture, suicidal ideation. 00:20 All other systems are negative. Exam: 00:25 Constitutional: The patient appears in no acute distress, alert, awake, non-toxic, well cp developed, well nourished. 00:25 Head/Face: Normocephalic, atraumatic. cp 00:25 Eyes: Periorbital structures: appear normal, Pupils: equal, round, and reactive to light and accomodation, Extraocular movements: intact throughout, Conjunctiva: normal, no exudate, no injection, Sclera: no appreciated abnormality, Lids and lashes: appear normal, bilaterally. 00:25 ENT: External ear(s): are unremarkable, Ear canal(s): are normal, clear, TM's: dullness, bilaterally, Nose: is normal, Mouth: Lips: moist, Oral mucosa: moist, Posterior pharynx: Airway: no evidence of obstruction, patent. 00:25 Neck: ROM/movement: is normal, is supple, no range of motions limitations, pain, is not appreciated, limited range of motion, is not appreciated. 00:25 Chest/axilla: Inspection: normal. 00:25 Cardiovascular: Rate: normal, Rhythm: regular. 00:25 Respiratory: the patient does not display signs of respiratory distress, Respirations: normal, no use of accessory muscles, no retractions, labored breathing, is not present, Breath sounds: are clear throughout, no decreased breath sounds. 00:25 Abdomen/GI: Exam negative for discomfort, distension, guarding, Inspection: abdomen appears normal. 00:25 Neuro: Orientation: to person, place \\T\\ time. Mentation: is normal, Cerebellar function: is grossly normal, Motor: moves all fours, strength is normal, Sensation: no obvious gross deficits, Gait: is steady. Vital Signs: 10/04 23:36 BP 110 / 77; Pulse 67; Resp 18; Temp 97.2; Pulse Ox 98% ; Weight 81.65 kg; Height 5 ft. ea 6 in. (167.64 cm); 23:36 Body Mass Index 29.05 (81.65 kg, 167.64 cm) ea MDM: 10/05 00:05 Patient medically screened. cp 00:46 Data reviewed: vital signs, nurses notes, radiologic studies, CT scan. ED course: cp review of [place] prescription monitor website pina not show any results for patient. 10/05 00:07 Order name: CT Head Brain wo Cont cp Administered Medications: 00:15 Drug: Ativan (LORazepam) 1 mg Route: PO; ea 00:55 Follow up: Response: No adverse reaction [place] Disposition: 19:58 Co-signature as Attending Physician, Thais Burgos MD. ma2 Disposition Summary: 10/05/20 00:47 Discharge Ordered Location: Home cp Problem: an ongoing problem cp Symptoms: have improved cp Condition: Stable cp Diagnosis - Anxiety disorder, unspecified cp - Headache cp Followup: cp - With: Private Physician - When: 1 - 2 days - Reason: Recheck today's complaints Discharge Instructions: - Discharge Summary Sheet cp - General Headache Without Cause cp - Generalized Anxiety Disorder, Adult cp Forms: - Medication Reconciliation Form cp - Thank You Letter cp - Antibiotic Education cp - Prescription Opioid Use cp Prescriptions: - Ativan 1 mg Oral Tablet - take 1 tablet by ORAL route every 12 hours As needed; 10 tablet; Refills: 0, cp Product Selection Permitted Signatures: Dispatcher [employer] EDMS Jerzy Venegas PA PA cp Antunez, Elena, RN Thais Hays ea, MD MD ma2 Corrections: (The following items were deleted from the chart) 00:25 00:23 This 45 yrs old Male presents to ER via Ambulatory with complaints of cp Neck Problem, Sore Throat, Headache, Breathing Difficulty. cp
[2020-10-05 01:09] VITALS: BP 110/77; TEMP 97.2; O2SAT 98
--- NOTE | 2020-10-05 13:55 | RAD REPORT ---
EXAM DESCRIPTION: CT - Head Brain Wo Cont - 10/05/2020 6:30 am CLINICAL HISTORY: HEADACHE. TECHNIQUE: Axial, coronal, and sagittal images through the brain were performed in the absence of in travenous contrast. This exam was performed according to our departmental dose-optimization program w hich includes use of Automated Exposure Control, adjustment of the mA and/or kV according to patient size and/or use of iterative reconstruction technique. COMPARISON: None. FINDINGS: The brain parenchyma appears unremarkable. There is no intra-axial or extra-axial bleed se en. There is no mass or mass effect. The ventricles are normal in size shape and configuration. The o rbital contents appear unremarkable. The visualized paranasal sinuses and mastoid air cells are patent. No acute fracture is identified. IMPRESSION: No acute intracranial abnormality identified. Electronically signed by: Natalee Mcgregor MD 10/05/2020 12:36 AM CDT Due to temporary technical issues with the PACS/Fluency reporting system, reports are being signed by the in house radiologists without review as a courtesy to insure prompt reporting. The interpreting radiologist is fully responsible for the content of the report
== END 2020-10-05 00:55 | disposition home or self-care (01) ==
LOC: ER 23:21
DX: F41.9 Anxiety disorder, unspecified (principal); I10 Essential (primary) hypertension
CPT/HCPCS: 70450; 99284

== ENCOUNTER 2020-10-07 00:54 | Emergency (ER) | payer SELFPAY ==
[2020-10-07] MEDS ORDERED: DIAZEPAM 5 MG TABLET ONE (01:38)
--- NOTE | 2020-10-07 01:44 | EDPHYS ---
Physician Documentation [facility] Name: Juwan Clements Age: 45 yrs Sex: Male : 1975 Arrival Date: 10/07/2020 Time: 00:58 Bed 15 Private MD: ED Physician Sudhakar Pham HPI: 10/07 01:26 This 45 yrs old Male presents to ER via Ambulatory with complaints of anxiety, rn Nasal Congestion, Dry Mouth. 01:26 The patient presents to the emergency department with anxiety. Onset: The rn symptoms/episode began/occurred at an unknown time. Associated signs and symptoms: Pertinent positives; anxiety, Pertinent negatives: delusions, fever, homicidal ideation, palpitations, paranoia, substance abuse, suicide ideation. Severity of symptoms: At their worst the symptoms were moderate in the emergency department the symptoms have improved. The patient has experienced similar episodes in the past. The patient has been recently seen by a physician:. Reports long standing hx of anxiety and trouble sleeping, had been doing ok on citalopram, but recently stopped working for him. + increased trouble sleeping. Seen by pcp this week, prescribed seroquel for sleep, took first one tonight, doesn't feel like helped him, still feels anxious and feels dry mouth. No swelling or rash/hives. . Historical: - Allergies: 01:21 No Known Allergies; jm8 - Home Meds: 01:21 Seroquel Oral once daily [Active]; [facility] - PMHx: 01:21 Anxiety; Hypertension; [facility] - PSHx: 01:21 None; [facility] - Immunization history:: Adult Immunizations up to date. - Social history:: Smoking status: Patient denies any tobacco usage or history of. - Family history:: not pertinent. - Hospitalizations: : No recent hospitalization is reported. ROS: 01:26 Constitutional: Negative for fever, chills, and weight loss, Eyes: Negative for injury, rn pain, redness, and discharge, ENT: Negative for injury, pain, and discharge, Neck: Negative for injury, pain, and swelling, Cardiovascular: Negative for chest pain, palpitations, and edema, Respiratory: Negative for cough, wheezing, and pleuritic chest pain, Abdomen/GI: Negative for abdominal pain, nausea, vomiting, diarrhea, and constipation, Back: Negative for injury and pain, : Negative for injury, bleeding, discharge, and swelling, MS/Extremity: Negative for injury and deformity, Skin: Negative for injury, rash, and discoloration, Neuro: Negative for headache, weakness, numbness, tingling, and seizure. Exam: 01:26 Constitutional: This is a well developed, well nourished patient who is awake, alert, rn and in no acute distress. Head/Face: Normocephalic, atraumatic. Eyes: Pupils equal round and reactive to light, extra-ocular motions intact. Lids and lashes normal. Conjunctiva and sclera are non-icteric and not injected. Cornea within normal limits. Periorbital areas with no swelling, redness, or edema. ENT: MMM, no oral swelling or stridor Cardiovascular: Regular rate and rhythm . No pulse deficits. Respiratory: No increased work of breathing, no retractions or nasal flaring. Skin: Warm, dry, no urticaria or rash MS/ Extremity: Pulses equal, no cyanosis. Neuro: Awake and alert, GCS 15, oriented to person, place, time, and situation. Cranial nerves II-XII grossly intact. Motor strength 5/5 in all extremities. Sensory grossly intact. Cerebellar exam normal. Normal gait. Vital Signs: 01:18 BP 123 / 87; Pulse 68; Resp 16; Temp 97.6; Pulse Ox 99% on R/A; Weight 81.65 kg; Height jm8 5 ft. 6 in. (167.64 cm); 01:18 Body Mass Index 29.05 (81.65 kg, 167.64 cm) jm8 MDM: 01:06 Patient medically screened. rn 01:42 Differential diagnosis: anxiety. Data reviewed: vital signs, nurses notes, and as a rn result, I will discharge patient. Counseling: I had a detailed discussion with the patient and/or guardian regarding: the historical points, exam findings, and any diagnostic results supporting the discharge/admit diagnosis, the need for outpatient follow up, to return to the emergency department if symptoms worsen or persist or if there are any questions or concerns that arise at home. Response to treatment: the patient's symptoms have mildly improved after treatment, and as a result, I will discharge patient. Special discussion: I discussed with the patient/guardian in detail that at this point there is no indication for admission to the hospital. It is understood, however, that if the symptoms persist or worsen the patient needs to return immediately for re-evaluation. Based on the history and exam findings, there is no indication for further emergent testing or inpatient evaluation. I discussed with the patient/guardian the need to see the primary care provider for further evaluation of the symptoms. ED course: Improved with valium, has ride home, stable vitals, normal exam, will dc home with instructions to f/u with pcp and reeval medication effects. No evidence of allergic reaction to medication.. Administered Medications: :18 Drug: Valium (diazepam) 5 mg Route: PO; jm8 01:57 Follow up: Response: No adverse reaction jm8 Disposition Summary: 10/07/20 01:43 Discharge Ordered Location: Home rn Problem: an ongoing problem rn Symptoms: have improved rn Condition: Stable rn Diagnosis - Anxiety disorder, unspecified rn Followup: rn - With: Private Physician - When: As needed - Reason: Recheck today's complaints, Re-evaluation by your physician Discharge Instructions: - Discharge Summary Sheet rn - Generalized Anxiety Disorder, Adult rn - Managing Anxiety, Adult rn Forms: - Medication Reconciliation Form rn - Thank You Letter rn - 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
--- NOTE | 2020-10-07 01:44 | ER ---
Nurse's Notes [facility] Name: Juwan Clements Age: 45 yrs Sex: Male : 1975 Arrival Date: 10/07/2020 Time: 00:58 Bed 15 Private MD: Diagnosis: Anxiety disorder, unspecified Presentation: 10/07 01:18 Chief complaint: Patient states: he was recently changed to seroquel for his anxiety. jm8 Tonsammie was his first night taking it. States he woke up congested and thinks he is having an allergic reaction. Coronavirus screen: Client denies travel out of the [place] in the last 14 days. Ebola Screen: Patient negative for fever greater than or equal to 101.5 degrees Fahrenheit, and additional compatible Ebola Virus Disease symptoms Patient denies exposure to infectious person. Patient denies travel to an Ebola-affected area in the 21 days before illness onset. Initial Sepsis Screen: Does the patient meet any 2 criteria? No. Patient's initial sepsis screen is negative. Does the patient have a suspected source of infection? No. Patient's initial sepsis screen is negative. Risk Assessment: Do you want to hurt yourself or someone else? Patient reports no desire to harm self or others. Onset of symptoms was October 06, 2020. 01:18 Method Of Arrival: Ambulatory [facility] 01:18 Acuity: WALT 4 8 Triage Assessment: 01:22 General: Appears in no apparent distress. comfortable, Behavior is cooperative, jm8 appropriate for age, anxious. Pain: Denies pain. EENT: No deficits noted. No signs and/or symptoms were reported regarding the EENT system. Neuro: No deficits noted. Cardiovascular: No deficits noted. Respiratory: Reports congestion after taking seroquel. GI: No deficits noted. No signs and/or symptoms were reported involving the gastrointestinal system. : No deficits noted. No signs and/or symptoms were reported regarding the genitourinary system. Derm: No deficits noted. No signs and/or symptoms reported regarding the dermatologic system. Musculoskeletal: No deficits noted. No signs and/or symptoms reported regarding the musculoskeletal system. Historical: - Allergies: 01:21 No Known Allergies; jm8 - Home Meds: 01:21 Seroquel Oral once daily [Active]; 8 - PMHx: 01:21 Anxiety; Hypertension; jm8 - PSHx: 01:21 None; jm8 - Immunization history:: Adult Immunizations up to date. - Social history:: Smoking status: Patient denies any tobacco usage or history of. - Family history:: not pertinent. - Hospitalizations: : No recent hospitalization is reported. Screenin:22 Abuse screen: Denies threats or abuse. Denies injuries from another. Nutritional jm8 screening: No deficits noted. Tuberculosis screening: No symptoms or risk factors identified. Fall Risk None identified. Vital Signs: 01:18 BP 123 / 87; Pulse 68; Resp 16; Temp 97.6; Pulse Ox 99% on R/A; Weight 81.65 kg; Height 8 5 ft. 6 in. (167.64 cm); 01:18 Body Mass Index 29.05 (81.65 kg, 167.64 cm) 8 ED Course: 00:58 Patient arrived in ED. bp1 01:06 Sudhakar Pham MD is Attending Physician. rn 01:21 Triage completed. 8 01:22 Arm band placed on right wrist. jm8 01:22 Patient has correct armband on for positive identification. Bed in low position. Call jm8 light in reach. Side rails up X2. 01:56 No provider procedures requiring assistance completed. Patient did not have IV access desire during this emergency room visit. Administered Medications: 01:18 Drug: Valium (diazepam) 5 mg Route: PO; jm8 01:57 Follow up: Response: No adverse reaction jm8 Outcome: 01:43 Discharge ordered by . rn 01:56 Discharged to home ambulatory, with family. jm8 01:56 Condition: good 01:56 Discharge instructions given to patient, Instructed on discharge instructions, follow up and referral plans. medication usage, Demonstrated understanding of instructions, follow-up care, medications. 01:57 Patient left the ED. jm8 Signatures: Sudhakar Pham MD MD rn [place], Brittany [facility] Juan Pablo Amin RN RN jm8 Corrections: (The following items were deleted from the chart) :22 01:21 Home Meds: citalopram oral once daily; jm8 jm8
[2020-10-07 02:02] VITALS: BP 123/87; TEMP 97.6; O2SAT 99
== END 2020-10-07 01:57 | disposition home or self-care (01) ==
LOC: ER 00:54
DX: F41.9 Anxiety disorder, unspecified (principal); I10 Essential (primary) hypertension
CPT/HCPCS: 99283

== ENCOUNTER 2021-06-28 18:24 | Emergency (ER) | payer SELFPAY ==
--- NOTE | 2021-06-28 19:29 | RAD REPORT ---
EXAM DESCRIPTION: CT - Head Brain Wo Cont - 06/28/2021 7:19 pm CLINICAL HISTORY: Headache;Dizziness COMPARISON: Head Brain Wo Cont dated 10/05/2020 TECHNIQUE: Axial 5 mm thick images of the head were obtained without IV contrast. All CT scans are performed using dose optimization technique as appropriate and may include automated exposure control or mA/KV adjustment according to patient size. FINDINGS: No intracranial hemorrhage, mass, edema or shift of mid-line structures. No acute infarcti on changes seen. No abnormal extra-axial fluid collections. Ventricles are normal. Mastoid air cells and visualized portions of the paranasal sinuses are clear. No acute bony findings. No significant change from the prior study. IMPRESSION: Negative non-contrast CT head examination.
[2021-06-28] MEDS ORDERED: NA CHLORIDE 0.9% 1,000 ML ONE (19:32)
[2021-06-28 19:45] LABS: Urine Blood Negative (Negative); Urine Glucose Negative (Negative); Urine Protein Negative (Negative); Urine Specific Gravity >=1.030 (1.005-1.030); Urine pH 6.5 (5.0-7.0)
[2021-06-28 20:00] LABS: Absolute Lymphocytes (CBC) 2.8 K/uL (0.7-4.9); Hematocrit 44.3 % (39.6-49.0); Lymphocytes % 36.9 % (15.3-44.8); MPV 9.3 fL (7.6-11.3); RBC Red Blood Cell Count 4.84 M/uL (4.33-5.43)
--- NOTE | 2021-06-28 20:16 | RAD REPORT ---
EXAM DESCRIPTION: RAD - Chest Single View - 06/28/2021 7:57 pm CLINICAL HISTORY: COUGH COMPARISON: Portable 08/20/2020 TECHNIQUE: AP portable chest image was obtained 06/28/2021 7:57 pm . FINDINGS: Lungs are clear. Heart and vasculature are normal. No measurable pleural effusion and no p neumothorax. No acute bony abnormality seen. No acute aortic findings suspected. IMPRESSION: No acute cardiopulmonary process. No significant change from comparison study.
[2021-06-28 21:00] LABS: Potassium 3.8 mmol/L (3.5-5.1)
[2021-06-28 21:01] LABS: Albumin 3.9 g/dL (3.4-5.0); Bilirubin Direct 0.1 mg/dL (0-0.2); Bilirubin Total 0.3 mg/dL (0.2-1.0); Magnesium 2.3 mg/dL (1.8-2.4); Protein, Total 7.7 g/dL (6.4-8.2); Troponin High Sensitivity 5.6 pg/mL (<58.9)
--- NOTE | 2021-06-28 21:43 | RAD REPORT ---
EXAM DESCRIPTION: CT - Head angio - 06/28/2021 9:28 pm CLINICAL HISTORY: DIZZINESS, stroke-like symptoms TECHNIQUE: During dynamic enhancement using nonionic IV contrast, axial 1 millimeter thick images of the head were obtained. Sagittal and axial reconstruction images were generated using MIP technique and reviewed. All CT scans are performed using dose optimization technique as appropriate and may include automated exposure control or mA/KV adjustment according to patient size. FINDINGS: No aneurysm or vascular malformation identified. Major venous sinuses are patent. No stenosis, named branch occlusion, vasculitis or other significant vascular finding identifiable. IMPRESSION: Negative CT angio head examination.
--- NOTE | 2021-06-28 21:45 | RAD REPORT ---
EXAM DESCRIPTION: CT - Neck Angio - 06/28/2021 9:28 pm CLINICAL HISTORY: HEADACHE, dizziness, stroke-like symptoms TECHNIQUE: During dynamic enhancement using nonionic IV contrast, axial 2 mm thick images of the nec k were obtained. Sagittal and axial reconstruction images were generated using MIP technique and revi ewed. All CT scans are performed using dose optimization technique as appropriate and may include automated exposure control or mA/KV adjustment according to patient size. COMPARISON: CT head same date, CT angio neck same date FINDINGS: No aneurysm or vascular malformation identified. No carotid or vertebral dissection. No aortic arch or great vessel origin abnormality seen. Vertebral artery origins unremarkable as well . No stenosis, vasculitis or other significant carotid artery finding. No focal abnormality of either vertebral artery. Basilar artery is normal. IMPRESSION: Negative CT angio neck examination.
--- NOTE | 2021-06-28 22:35 | EDPHYS ---
Physician Documentation [facility] Name: Juwan Clements Age: 45 yrs Sex: Male : 1975 Arrival Date: 06/28/2021 Time: 18:28 Bed 18 Private MD: ED Physician Jerzy Garcia HPI: 06/28 21:35 This 45 yrs old Male presents to ER via Ambulatory with complaints of erendira Headache, Dizziness. 21:35 The patient complains of pain to the forehead, right eye, right amish, right frontal erendira area, right temporal area and right side of forehead. The patient complains of pain to the forehead, right eye and right amish. The patient describes the headache as aching. Onset: The symptoms/episode began/occurred just prior to arrival. Associated signs and symptoms: The patient has no apparent associated signs or symptoms. Severity of symptoms: At its worst the pain was mild, in the emergency department the pain has improved, moderately. Headache History: Denies prior headaches. The symptoms are alleviated by nothing. the symptoms are aggravated by nothing. The patient has experienced a previous episode. Historical: - Allergies: 18:37 No Known Allergies; ab2 - PMHx: 18:37 Anxiety; Hypertension; ab2 - PSHx: 18:37 None; ab2 - Immunization history:: Adult Immunizations up to date. - Social history:: Smoking status: Patient denies any tobacco usage or history of. - Family history:: not pertinent. ROS: 21:35 Constitutional: Negative for fever, chills, and weight loss, Eyes: Negative for injury, erendira pain, redness, and discharge, ENT: Negative for injury, pain, and discharge, Neck: Negative for injury, pain, and swelling, Cardiovascular: Negative for chest pain, palpitations, and edema, Respiratory: Negative for shortness of breath, cough, wheezing, and pleuritic chest pain, Abdomen/GI: Negative for abdominal pain, nausea, vomiting, diarrhea, and constipation, Back: Negative for injury and pain, : Negative for injury, bleeding, discharge, and swelling, MS/Extremity: Negative for injury and deformity, Skin: Negative for injury, rash, and discoloration, Psych: Negative for depression, anxiety, suicide ideation, homicidal ideation, and hallucinations, Allergy/Immunology: Negative for hives, rash, and allergies, Endocrine: Negative for neck swelling, polydipsia, polyuria, polyphagia, and marked weight changes, Hematologic/Lymphatic: Negative for swollen nodes, abnormal bleeding, and unusual bruising. 21:35 Neuro: Positive for headache. Exam: 21:35 Constitutional: This is a well developed, well nourished patient who is awake, alert, erendira and in no acute distress. Head/Face: Normocephalic, atraumatic. Eyes: Pupils equal round and reactive to light, extra-ocular motions intact. Lids and lashes normal. Conjunctiva and sclera are non-icteric and not injected. Cornea within normal limits. Periorbital areas with no swelling, redness, or edema. ENT: Nares patent. No nasal discharge, no septal abnormalities noted. Tympanic membranes are normal and external auditory canals are clear. Oropharynx with no redness, swelling, or masses, exudates, or evidence of obstruction, uvula midline. Mucous membranes moist. Neck: Trachea midline, no thyromegaly or masses palpated, and no cervical lymphadenopathy. Supple, full range of motion without nuchal rigidity, or vertebral point tenderness. No Meningismus. Chest/axilla: Normal chest wall appearance and motion. Nontender with no deformity. No lesions are appreciated. Cardiovascular: Regular rate and rhythm with a normal S1 and S2. No gallops, murmurs, or rubs. Normal PMI, no JVD. No pulse deficits. Respiratory: Lungs have equal breath sounds bilaterally, clear to auscultation and percussion. No rales, rhonchi or wheezes noted. No increased work of breathing, no retractions or nasal flaring. Abdomen/GI: Soft, non-tender, with normal bowel sounds. No distension or tympany. No guarding or rebound. No evidence of tenderness throughout. Back: No spinal tenderness. No costovertebral tenderness. Full range of motion. Skin: Warm, dry with normal turgor. Normal color with no rashes, no lesions, and no evidence of cellulitis. MS/ Extremity: Pulses equal, no cyanosis. Neurovascular intact. Full, normal range of motion. Neuro: Awake and alert, GCS 15, oriented to person, place, time, and situation. Cranial nerves II-XII grossly intact. Motor strength 5/5 in all extremities. Sensory grossly intact. Cerebellar exam normal. Normal gait. Psych: Awake, alert, with orientation to person, place and time. Behavior, mood, and affect are within normal limits. 21:41 ECG was reviewed by the Attending Physician. [facility] Vital Signs: 18:37 BP 113 / 82; Pulse 70; Resp 17; Temp 98.8(TE); Pulse Ox 100% on R/A; Weight 86.18 kg; ab2 Height 5 ft. 7 in. (170.18 cm); Pain 6/10; 19:45 BP 131 / 88 LA Supine (auto/reg); Pulse 67 MON; Resp 16 S; Temp 98.5(O); Pulse Ox 96% tk1 on R/A; Pain 6/10; 21:00 BP 127 / 87 LA Supine (auto/reg); Pulse 62 MON; Resp 16; Temp 98.3(O); Pulse Ox 97% on tk1 R/A; Pain 6/10; 22:00 BP 114 / 73 LA Supine (auto/reg); Pulse 64 MON; Resp 18 S; Pulse Ox 99% on R/A; Pain tk1 6/10; 18:37 Body Mass Index 29.76 (86.18 kg, 170.18 cm) ab2 NIH Stroke Scale Scores: 18:41 NIHSS Score: 0 ab2 Fatuma Coma Score: 18:40 Eye Response: spontaneous(4). Verbal Response: oriented(5). Motor Response: obeys ab2 commands(6). Total: 15. 19:45 Eye Response: spontaneous(4). Verbal Response: oriented(5). Motor Response: obeys tk1 commands(6). Total: 15. 21:37 Eye Response: spontaneous(4). Verbal Response: oriented(5). Motor Response: obeys erendira commands(6). Total: 15. MDM: 19:19 Patient medically screened. erendira 21:37 Differential diagnosis: cluster headache, cerebral vascular accident, hypertensive erendira headache, intracerebral hemorrhage, migraine, sinusitis, subarachnoid bleed, subdural hematoma, temporal arteritis, tension headache. Data reviewed: vital signs, nurses notes, lab test result(s), EKG, radiologic studies, CT scan, plain films. Data interpreted: Pulse oximetry: on room air is 96 %. Test interpretation: by ED physician or midlevel provider: ECG, plain radiologic studies. Counseling: I had a detailed discussion with the patient and/or guardian regarding: the historical points, exam findings, and any diagnostic results supporting the discharge/admit diagnosis, the presence of at least one elevated blood pressure reading (>120/80) during this emergency department visit, lab results, radiology results, the need for outpatient follow up, for definitive care, a family practitioner, a neurologist. 06/28 19:21 Order name: Basic Metabolic Panel; Complete Time: 21:15 [facility] 06/28 19:21 Order name: CBC with Diff; Complete Time: 20:43 [facility] 06/28 19:21 Order name: LFT's; Complete Time: 21:15 [facility] 06/28 19:21 Order name: Magnesium; Complete Time: 21:15 [facility] 06/28 19:21 Order name: Troponin HS; Complete Time: 21:15 [facility] 06/28 19:45 Order name: Urine Dipstick-Ancillary; Complete Time: 20:43 EDMS 06/28 18:59 Order name: CT Head Brain wo Cont; Complete Time: 20:43 rn 06/28 19:21 Order name: XRAY Chest (1 view); Complete Time: 20:43 [facility] 06/28 19:21 Order name: EKG; Complete Time: 19:22 [facility] 06/28 19:21 Order name: Cardiac monitoring; Complete Time: 19:36 [facility] 06/28 19:21 Order name: EKG - Nurse/Tech; Complete Time: 19:52 [facility] 06/28 19:21 Order name: CT Head Angio; Complete Time: 22:27 [facility] 06/28 19:21 Order name: CT Neck Angio; Complete Time: 22:27 [facility] 06/28 19:21 Order name: IV Saline Lock; Complete Time: 19:36 [facility] 06/28 19:21 Order name: Labs collected and sent; Complete Time: 19:36 [facility] 06/28 19:21 Order name: O2 Per Protocol; Complete Time: 19:25 [facility] 06/28 19:21 Order name: O2 Sat Monitoring; Complete Time: 19:25 [facility] 06/28 19:21 Order name: Urine Dipstick-Ancillary (obtain specimen); Complete Time: 19:36 erendira EC:41 Rate is 60 beats/min. Rhythm is regular. QRS [place] is Normal. [place] interval is normal. QRS erendira interval is normal. QT interval is normal. No Q waves. T waves are Normal. No ST changes noted. Clinical impression: Normal ECG and No evidence of ischemia. Interpreted by me. Reviewed by me. Administered Medications: 19:36 Drug: NS 0.9% 1000 ml Route: IV; Rate: 1 bolus; Infused Over: 1 hrs; Site: right tk1 antecubital; Delivery: Primary tubing; 20:36 Follow up: Response: No adverse reaction; IV Status: Completed infusion; IV Intake: tk1 1000ml Disposition Summary: 06/28/21 22:34 Discharge Ordered Location: Home erendira Problem: new erendira Symptoms: have improved erendira Condition: Stable erendira Diagnosis - Headache erendira - Essential (primary) hypertension erendira Followup: erendira - With: Private Physician - When: 2 - 3 days - Reason: Recheck today's complaints, Continuance of care, Re-evaluation by your physician Followup: erendira - With: - When: 2 - 3 days - Reason: Recheck today's complaints, Re-evaluation by your physician Discharge Instructions: - Discharge Summary Sheet erendira - General Headache Without Cause erendira - Hypertension, Adult erendira - Hypertension, Adult, [id number] erendira - How to Take Your Blood Pressure, [id number] erendira - Aspirin and Your Heart erendira - General Headache Without Cause, [id number] erendira Forms: - Medication Reconciliation Form erendira - Thank You Letter erendira - Antibiotic Education erendira - Prescription Opioid Use erendira NIH Stroke Scale - NIH Stroke Score Date: 06/28/2021 Time: 18:41 Total Score = 0 1a. Level of Consciousness (LOC) - 0(Alert) 1b. Level of Consciousness (LOC) (Month \T\ Age) - 0(Both) 1c. LOC Commands (Open \T\ Closes Eyes/Clinical Informatics Specialist) - 0(Both) 2. Best Gaze (Lateral Gaze Paresis) - 0(Normal) 3. Visual Field Loss - 0(No visual loss) 4. Facial Palsy - 0(Normal) 5a. Left Arm: Motor (10-second hold) - 0(No drift) 5b. Right Arm: Motor (10-second hold) - 0(No drift) 6a. Left Leg: Motor (5-second hold - always test supine) - 0(No drift) 6b. Right Leg: Motor (5-second hold - always test supine) - 0(No drift) 7. Limb Ataxia (finger/nose \T\ heel/schaeffer - test with eyes open) - 0(Absent) 8. Sensory Loss (pinprick arms/legs/face) - 0(Normal) 9. Best Language: Aphasia (description/naming/reading) - 0(No aphasia) 10. Dysarthria (speech clarity - read or repeat words) - 0(Normal) 11. Extinction and Inattention (visual/tactile/auditory/spatial/personal) - 0(No abnormality) Initials: ab2 Signatures: Dispatcher [employer] Jerzy Pedro MD MD cha Kirby, Tammie tk1 Reinier Connolly ab2 Liane Santos PA PA sb3
--- NOTE | 2021-06-28 22:35 | ER ---
Nurse's Notes [facility] Name: Juwan Clements Age: 45 yrs Sex: Male : 1975 Arrival Date: 06/28/2021 Time: 18:28 Bed 18 Private MD: Diagnosis: Headache;Essential (primary) hypertension Presentation: 06/28 18:37 Chief complaint: Patient's son or daughter states: "He says he has a headache on the ab2 right side of his head, to his eye, making his eyes blurry. He also feels weak and dizzy." Pt states this started after lifting a refrigerator. Coronavirus screen: Vaccine status: Patient reports being unvaccinated. Client denies travel out of the [place] in the last 14 days. At this time, the client does not indicate any symptoms associated with coronavirus-19. Ebola Screen: Patient negative for fever greater than or equal to 101.5 degrees Fahrenheit, and additional compatible Ebola Virus Disease symptoms Patient denies exposure to infectious person. Patient denies travel to an Ebola-affected area in the 21 days before illness onset. No symptoms or risks identified at this time. Initial Sepsis Screen: Does the patient meet any 2 criteria? No. Patient's initial sepsis screen is negative. Does the patient have a suspected source of infection? No. Patient's initial sepsis screen is negative. Risk Assessment: Do you want to hurt yourself or someone else? Patient reports no desire to harm self or others. Onset of symptoms is unknown. 18:37 Method Of Arrival: Ambulatory ab2 18:37 Acuity: WALT 3 ab2 Triage Assessment: 18:40 Headache History: Denies prior headaches. General: Appears in no apparent distress. ab2 comfortable, Behavior is calm, cooperative, appropriate for age. Pain: Complains of pain in head Pain currently is 7 out of 10 on a pain scale. Pain began 2 hours ago. Pain: Also complains of. Neuro: Level of Consciousness is awake, alert, obeys commands, Oriented to person, place, time, situation, Appropriate for age Reports blurred vision dizziness, headache in right. Historical: - Allergies: 18:37 No Known Allergies; ab2 - PMHx: 18:37 Anxiety; Hypertension; ab2 - PSHx: 18:37 None; ab2 - Immunization history:: Adult Immunizations up to date. - Social history:: Smoking status: Patient denies any tobacco usage or history of. - Family history:: not pertinent. Screenin:45 Abuse screen: Denies threats or abuse. Denies injuries from another. Nutritional tk1 screening: No deficits noted. Tuberculosis screening: No symptoms or risk factors identified. Fall Risk None identified. Assessment: 19:45 General: Appears in no apparent distress. comfortable, well groomed, well developed, tk1 well nourished, Behavior is calm, cooperative, appropriate for age. Pain: Complains of pain in right side of head Pain does not radiate. Pain currently is 6 out of 10 on a pain scale. Quality of pain is described as aching, Pain began suddenly, 3 hours ago. Neuro: Level of Consciousness is awake, alert, obeys commands, Oriented to person, place, time, [employer] are equal bilaterally Moves all extremities. Gait is steady, Speech is normal. Cardiovascular: Capillary refill < 3 seconds is brisk in bilateral fingers Rhythm is sinus rhythm. Respiratory: Airway is patent Respiratory effort is even, unlabored, Respiratory pattern is regular, symmetrical. GI: No deficits noted. No signs and/or symptoms were reported involving the gastrointestinal system. : No deficits noted. No signs and/or symptoms were reported regarding the genitourinary system. EENT: No deficits noted. No signs and/or symptoms were reported regarding the EENT system. Derm: No deficits noted. No signs and/or symptoms reported regarding the dermatologic system. Musculoskeletal: No deficits noted. No signs and/or symptoms reported regarding the musculoskeletal system. 21:00 Reassessment: No changes from previously documented assessment. Patient and/or family tk1 updated on plan of care and expected duration. Pain level reassessed. Patient is alert, oriented x 3, equal unlabored respirations, skin warm/dry/pink. Pain: Pain currently is 6 out of 10 on a pain scale. 22:00 Reassessment: Patient and/or family updated on plan of care and expected duration. Pain tk1 level reassessed. Pain: Pain currently is 6 out of 10 on a pain scale. 22:54 Reassessment: D/C per MD order. Discharge/Prescription instructions given to patient tk1 and son. Verbalized understanding. Vital Signs: 18:37 BP 113 / 82; Pulse 70; Resp 17; Temp 98.8(TE); Pulse Ox 100% on R/A; Weight 86.18 kg; ab2 Height 5 ft. 7 in. (170.18 cm); Pain 6/10; 19:45 BP 131 / 88 LA Supine (auto/reg); Pulse 67 MON; Resp 16 S; Temp 98.5(O); Pulse Ox 96% tk1 on R/A; Pain 6/10; 21:00 BP 127 / 87 LA Supine (auto/reg); Pulse 62 MON; Resp 16; Temp 98.3(O); Pulse Ox 97% on tk1 R/A; Pain 6/10; 22:00 BP 114 / 73 LA Supine (auto/reg); Pulse 64 MON; Resp 18 S; Pulse Ox 99% on R/A; Pain tk1 6/10; 18:37 Body Mass Index 29.76 (86.18 kg, 170.18 cm) ab2 Malo Coma Score: 18:40 Eye Response: spontaneous(4). Verbal Response: oriented(5). Motor Response: obeys ab2 commands(6). Total: 15. 19:45 Eye Response: spontaneous(4). Verbal Response: oriented(5). Motor Response: obeys tk1 commands(6). Total: 15. 21:37 Eye Response: spontaneous(4). Verbal Response: oriented(5). Motor Response: obeys erendira commands(6). Total: 15. NIH Stroke Scale Scores: 18:41 NIHSS Score: 0 ab2 ED Course: 18:28 Patient arrived in ED. ja2 18:40 Triage completed. ab2 18:41 Arm band placed on right wrist. ab2 19:19 Jerzy Garcia MD is Attending Physician. erendira 19:20 CT Head Brain wo Cont In Process Unspecified. EDMS 19:24 Michelle Hernandez is Primary Nurse. tk1 19:37 Basic Metabolic Panel Sent. tk1 19:37 CBC with Diff Sent. tk1 19:37 LFT's Sent. tk1 19:37 Magnesium Sent. tk1 19:37 Troponin HS Sent. tk1 19:37 Inserted saline lock: 18 gauge in right antecubital area, using aseptic technique. tk1 Blood collected. 19:45 Patient has correct armband on for positive identification. Placed in gown. Bed in low tk1 position. Call light in reach. Side rails up X 1. Adult w/ patient. site monitor on. Pulse ox on. NIBP on. 19:59 XRAY Chest (1 view) In Process Unspecified. EDMS 21:30 CT Head Angio In Process Unspecified. EDMS 21:30 CT Neck Angio In Process Unspecified. EDMS 22:34 Joseph Wood MD is Referral Physician. erendira 22:54 No provider procedures requiring assistance completed. IV discontinued, intact, tk1 bleeding controlled, No redness/swelling at site. Pressure dressing applied. Administered Medications: 19:36 Drug: NS 0.9% 1000 ml Route: IV; Rate: 1 bolus; Infused Over: 1 hrs; Site: right tk1 antecubital; Delivery: Primary tubing; 20:36 Follow up: Response: No adverse reaction; IV Status: Completed infusion; IV Intake: tk1 1000ml Intake: 20:36 IV: 1000ml; Total: 1000ml. tk1 Outcome: 22:34 Discharge ordered by . erendira 22:58 Patient left the ED. tk1 NIH Stroke Scale - NIH Stroke Score Date: 06/28/2021 Time: 18:41 Total Score = 0 1a. Level of Consciousness (LOC) - 0(Alert) 1b. Level of Consciousness (LOC) (Month \\T\\ Age) - 0(Both) 1c. LOC Commands (Open \\T\\ Closes Eyes/Glass Laminating Operator) - 0(Both) 2. Best Gaze (Lateral Gaze Paresis) - 0(Normal) 3. Visual Field Loss - 0(No visual loss) 4. Facial Palsy - 0(Normal) 5a. Left Arm: Motor (10-second hold) - 0(No drift) 5b. Right Arm: Motor (10-second hold) - 0(No drift) 6a. Left Leg: Motor (5-second hold - always test supine) - 0(No drift) 6b. Right Leg: Motor (5-second hold - always test supine) - 0(No drift) 7. Limb Ataxia (finger/nose \\T\\ heel/schaeffer - test with eyes open) - 0(Absent) 8. Sensory Loss (pinprick arms/legs/face) - 0(Normal) 9. Best Language: Aphasia (description/naming/reading) - 0(No aphasia) 10. Dysarthria (speech clarity - read or repeat words) - 0(Normal) 11. Extinction and Inattention (visual/tactile/auditory/spatial/personal) - 0(No abnormality) Initials: ab2 Signatures: Dispatcher [employer] Jerzy Pedro MD MD cha Alexander, Jessica ja2 Kirby, Tammie tk1 Reinier Connolly ab2 Corrections: (The following items were deleted from the chart) 19:51 19:45 Pain: Complains of pain in right side of head Pain does not radiate. Pain tk1 currently is 8 out of 10 on a pain scale. Quality of pain is described as aching, Pain began suddenly, 3 hours ago. tk1
[2021-06-28 23:40] VITALS: TEMP 98.3
[2021-06-28 23:46] VITALS: BP 114/73; O2SAT 99
--- NOTE | 2021-06-29 07:44 | EKG ---
Test Date: 2021-06-28 Test Time: 19:54:05 Nicu Rn: JEREMÍAS MEASUREMENT RESULTS: Intervals: Rate: 60 OR: 168 QRSD: 86 QT: 388 QTc: 388 [place]: P: 47 OR: 168 QRS: 59 T: 46 INTERPRETIVE STATEMENTS: Normal sinus rhythm Normal ECG Compared to ECG 08/20/2020 00:44:49 No significant changes Electronically Signed On 06-29-21 07:41:26 CDT by Derek Amaro
== END 2021-06-28 22:58 | disposition home or self-care (01) ==
LOC: ER 18:24
DX: R51.9 Headache, unspecified (principal); I10 Essential (primary) hypertension
CPT/HCPCS: 36415; 70450; 70496; 70498; 71045; 80048; 80076; 81003; 83735; 84484; 85025; 93005; J7030; Q9967

== ENCOUNTER 2021-09-16 22:41 | Emergency (ER) | payer SELFPAY ==
[2021-09-17] MEDS ORDERED: NA CHLORIDE 0.9% 1,000 ML ONE (01:40)
[2021-09-17 02:18] LABS: Urine Blood Negative (Negative); Urine Glucose Negative (Negative); Urine Protein Negative (Negative); Urine Specific Gravity 1.025 (1.005-1.030); Urine pH 6.5 (5.0-7.0)
[2021-09-17 02:34] LABS: Absolute Lymphocytes (CBC) 2.5 K/uL (0.7-4.9); Hematocrit 41.9 % (39.6-49.0); RBC Red Blood Cell Count 4.58 M/uL (4.33-5.43)
[2021-09-17 02:35] LABS: Protime INR 1.03
[2021-09-17 02:51] LABS: ALT/SGPT 42 U/L (12-78); AST/SGOT 28 U/L (15-37); Albumin 3.6 g/dL (3.4-5.0); Alkaline Phosphatase 71 U/L (45-117); BUN Blood Urea Nitrogen 19 mg/dL (7-18); Bicarbonate 25 mmol/L (21-32); Bilirubin Direct 0.1 mg/dL (0-0.2); Bilirubin Total 0.5 mg/dL (0.2-1.0); Glomerular Filtration Rate 96 ml/min (=/>90); Glucose Level 106 mg/dL (74-106); Magnesium 2.4 mg/dL (1.8-2.4); NT PRO-BNP 11 pg/mL (<125); Potassium 4.4 mmol/L (3.5-5.1); Protein, Total 7.2 g/dL (6.4-8.2); Sodium Level 135 mmol/L (136-145); Troponin High Sensitivity 4.2 pg/mL (<58.9)
[2021-09-17 02:53] LABS: Barbiturates NEGATIVE (NEGATIVE); Benzodiazepines NEGATIVE (NEGATIVE); Cocaine NEGATIVE (NEGATIVE); METHAMPHETAM NEGATIVE (NEGATIVE); Methadone NEGATIVE (NEGATIVE); Opiates NEGATIVE (NEGATIVE); Phencyclidine NEGATIVE (NEGATIVE); THC Cannibis NEGATIVE (NEGATIVE)
--- NOTE | 2021-09-17 06:10 | EDPHYS ---
Physician Documentation [facility] Name: Juwan Clements Age: 46 yrs Sex: Male : 1975 Arrival Date: 09/16/2021 Time: 22:45 Bed 5 Private MD: ED Physician Albino Andrade HPI: 09/17 01:00 This 46 yrs old Male presents to ER via Ambulatory with complaints of Feels mh7 like swallowing tongue, Numbness of left side of head, Sore Throat. 01:00 The patient complains of pain to the left side of the back of head. mh7 01:00 The patient describes the headache as aching, intermittent, waxing and waning. Onset: mh7 The symptoms/episode began/occurred 5 day(s) ago. Associated signs and symptoms: Pertinent positives: dizziness, sore throat, Pertinent negatives: altered mental status, fever, malaise, nausea, neck stiffness, Photophobia rash, sinus congestion, sinus tenderness, vision changes, vision loss, vomiting, weakness, vertigo. Severity of symptoms: At its worst the pain was moderate, 4 day(s) ago, in the emergency department the pain has improved, moderately. Headache History: The patient has had previous headaches and this one is similar to previous episodes. The symptoms are alleviated by nothing. the symptoms are aggravated by nothing. Historical: - Allergies: 09/16 23:02 No Known Allergies; jb4 - Home Meds: 23:02 Lisinopril Oral [Active]; Depakote Oral [Active]; jb4 09/17 06:18 citalopram oral once daily [Active]; Seroquel Oral once daily [Active]; sm5 - PMHx: 09/16 23:02 Anxiety; Hypertension; jb4 - PSHx: 23:02 None; jb4 - Immunization history:: Adult Immunizations not up to date. - Social history:: Smoking status: Patient denies any tobacco usage or history of. ROS: 09/17 01:00 Constitutional: Negative for fever, chills, and weight loss, Eyes: Negative for injury, mh7 pain, redness, and discharge, Neck: Negative for injury, pain, and swelling, Cardiovascular: Negative for chest pain, palpitations, and edema, Respiratory: Negative for shortness of breath, cough, wheezing, and pleuritic chest pain, Abdomen/GI: Negative for abdominal pain, nausea, vomiting, diarrhea, and constipation, Back: Negative for injury and pain, : Negative for injury, bleeding, discharge, and swelling, MS/Extremity: Negative for injury and deformity, Skin: Negative for injury, rash, and discoloration, Psych: Negative for depression, anxiety, suicide ideation, homicidal ideation, and hallucinations, Allergy/Immunology: Negative for hives, rash, and allergies, Endocrine: Negative for neck swelling, polydipsia, polyuria, polyphagia, and marked weight changes, Hematologic/Lymphatic: Negative for swollen nodes, abnormal bleeding, and unusual bruising. Exam: 01:00 Constitutional: This is a well developed, well nourished patient who is awake, alert, mh7 and in no acute distress. Head/Face: Normocephalic, atraumatic. Eyes: Pupils equal round and reactive to light, extra-ocular motions intact. Lids and lashes normal. Conjunctiva and sclera are non-icteric and not injected. Cornea within normal limits. Periorbital areas with no swelling, redness, or edema. ENT: Nares patent. No nasal discharge, no septal abnormalities noted. Tympanic membranes are normal and external auditory canals are clear. Oropharynx with no redness, swelling, or masses, exudates, or evidence of obstruction, uvula midline. Mucous membranes moist. Neck: Trachea midline, no thyromegaly or masses palpated, and no cervical lymphadenopathy. Supple, full range of motion without nuchal rigidity, or vertebral point tenderness. No Meningismus. Chest/axilla: Normal chest wall appearance and motion. Nontender with no deformity. No lesions are appreciated. Cardiovascular: Regular rate and rhythm with a normal S1 and S2. No gallops, murmurs, or rubs. Normal PMI, no JVD. No pulse deficits. Respiratory: Lungs have equal breath sounds bilaterally, clear to auscultation and percussion. No rales, rhonchi or wheezes noted. No increased work of breathing, no retractions or nasal flaring. Abdomen/GI: Soft, non-tender, with normal bowel sounds. No distension or tympany. No guarding or rebound. No evidence of tenderness throughout. Back: No spinal tenderness. No costovertebral tenderness. Full range of motion. Skin: Warm, dry with normal turgor. Normal color with no rashes, no lesions, and no evidence of cellulitis. MS/ Extremity: Pulses equal, no cyanosis. Neurovascular intact. Full, normal range of motion. Neuro: Awake and alert, GCS 15, oriented to person, place, time, and situation. Cranial nerves II-XII grossly intact. Motor strength 5/5 in all extremities. Sensory grossly intact. Cerebellar exam normal. Normal gait. Psych: Awake, alert, with orientation to person, place and time. Behavior, mood, and affect are within normal limits. Vital Signs: 09/16 22:58 BP 116 / 78; Pulse 83; Resp 16; Temp 98.1(O); Pulse Ox 99% on R/A; Weight 81.65 kg (R); jb4 Height 5 ft. 7 in. (170.18 cm) (R); 09/17 01:20 BP 103 / 74; Pulse 58; Resp 18; Pulse Ox 99% on R/A; sm5 03:00 BP 115 / 69; Pulse 64; Resp 19; Pulse Ox 100% on R/A; sm5 03:00 BP 112 / 70; Pulse 61; Resp 17; Pulse Ox 98% on R/A; sm5 09/16 22:58 Body Mass Index 28.19 (81.65 kg, 170.18 cm) jb4 Fatuma Coma Score: 06:07 Eye Response: spontaneous(4). Verbal Response: oriented(5). Motor Response: obeys mh7 commands(6). Total: 15. MDM: 06:07 Differential diagnosis: cluster headache, hypoglycemia, intracerebral hemorrhage, mh7 migraine, tension headache. Data reviewed: vital signs, nurses notes, old medical records, lab test result(s), cardiac enzymes, CBC, electrolytes, EKG, radiologic studies, CT scan, plain films. Data interpreted: Pulse oximetry: on room air is 99 %. Interpretation: normal. Counseling: I had a detailed discussion with the patient and/or guardian regarding: the historical points, exam findings, and any diagnostic results supporting the discharge/admit diagnosis, lab results, radiology results, the need for outpatient follow up, to return to the emergency department if symptoms worsen or persist or if there are any questions or concerns that arise at home. Response to treatment: the patient's symptoms have resolved after treatment, the patient's blood pressure is in an acceptable range, mental status has returned to baseline, the patient no longer shows bradycardia, the patient is not short of breath, the patient is not tachycardic, the patient's pain is gone, the patient's temperature has normalized. 06:09 Patient medically screened. [facility] 09/17 01:04 Order name: Basic Metabolic Panel; Complete Time: 05:03 [facility] 09/17 01:04 Order name: CBC with Diff; Complete Time: 05:03 [facility] 09/17 01:04 Order name: LFT's; Complete Time: 05:03 [facility] 09/17 01:04 Order name: Magnesium; Complete Time: 05:03 [facility] 09/17 01:04 Order name: NT PRO-BNP; Complete Time: 05:03 [facility] 09/17 01:04 Order name: PT-INR; Complete Time: 02:38 [facility] 09/17 01:04 Order name: Troponin HS; Complete Time: 05:03 [facility] 09/17 01:06 Order name: Rapid Strep; Complete Time: 05:03 [facility] 09/17 01:06 Order name: Influenza Screen (a \\T\\ B); Complete Time: 05:03 [facility] 09/17 01:06 Order name: COVID-19 SARS RT PCR (Document "Date of Onset" if Symptomatic); Complete [facility] Time: 05:03 09/17 01:06 Order name: ETOH Level; Complete Time: 05:03 [facility] 09/17 01:06 Order name: UDS; Complete Time: 05:03 [facility] 09/17 01:06 Order name: Salicylate; Complete Time: 05:03 [facility] 09/17 01:04 Order name: XRAY Chest (1 view) [facility] 09/17 01:04 Order name: EKG; Complete Time: 01:05 [facility] 09/17 01:04 Order name: Cardiac monitoring; Complete Time: 02:20 [facility] 09/17 01:04 Order name: EKG - Nurse/Tech; Complete Time: 02:19 [facility] 09/17 01:04 Order name: IV Saline Lock; Complete Time: 02:05 [facility] 09/17 01:04 Order name: Labs collected and sent; Complete Time: 02:05 [facility] 09/17 01:04 Order name: O2 Per Protocol; Complete Time: 02:05 [facility] 09/17 01:04 Order name: O2 Sat Monitoring; Complete Time: 02:05 7 09/17 01:06 Order name: Urine Dipstick-Ancillary (obtain specimen); Complete Time: 02:19 7 09/17 01:08 Order name: CT Head Brain wo Cont [facility] 09/17 02:19 Order name: Urine Dipstick-Ancillary; Complete Time: 02:38 EDMS 09/17 02:22 Order name: Acetaminophen Level; Complete Time: 05:03 MS 09/17 02:43 Order name: Throat Culture EDMS Administered Medications: 02:10 Drug: NS 0.9% 1000 ml Route: IV; Rate: 1000 ml; Site: right antecubital; ll3 Disposition Summary: 09/17/21 06:09 Discharge Ordered Location: Home [facility] Problem: new [facility] Symptoms: have improved [facility] Condition: Stable [facility] Diagnosis - Headache 7 - Dizziness and giddiness [facility] Followup: [facility] - With: Private Physician - When: 1 - 2 days - Reason: Worsening of condition, Recheck today's complaints, Continuance of care, Re-evaluation by your physician Discharge Instructions: - Discharge Summary Sheet [facility] - General Headache Without Cause mh7 - Dizziness, [id number] [facility] Forms: - Medication Reconciliation Form [facility] - Thank You Letter 7 - Antibiotic Education [facility] - Prescription Opioid Use [facility] Signatures: Dispatcher [employer] EDOK Ori Talbert, RN RN jb4 Albino Andrade MD MD 7 Morgan Galvan RN RN ll3 Charlee Mast RN RN sm5 Corrections: (The following items were deleted from the chart) 02:21 01:07 ACETAMINOPHEN+C.LAB.BRZ ordered. [facility]
--- NOTE | 2021-09-17 06:10 | ER ---
Nurse's Notes [facility] Name: Juwan Clements Age: 46 yrs Sex: Male : 1975 Arrival Date: 09/16/2021 Time: 22:45 Bed 5 Private MD: Diagnosis: Headache;Dizziness and giddiness Presentation: 09/16 22:58 Chief complaint: Patient states: I feel like I am swallowing my tongue making it hard. jb4 I can take a breath but I feel like its not enough. I have numbness in the left back side of my head and when it happens I feel like I am going to faint if I move. Coronavirus screen: At this time, the client does not indicate any symptoms associated with coronavirus-19. Ebola Screen: No symptoms or risks identified at this time. Initial Sepsis Screen: Does the patient meet any 2 criteria? No. Patient's initial sepsis screen is negative. Does the patient have a suspected source of infection? No. Patient's initial sepsis screen is negative. Risk Assessment: Do you want to hurt yourself or someone else? Patient reports no desire to harm self or others. Onset of symptoms was September 16, 2021. Transition of care: patient was not received from another setting of care. 22:58 Method Of Arrival: Ambulatory 4 22:58 Acuity: WALT 3 jb4 Historical: - Allergies: 23:02 No Known Allergies; jb4 - Home Meds: 23:02 Lisinopril Oral [Active]; Depakote Oral [Active]; jb4 09/17 06:18 citalopram oral once daily [Active]; Seroquel Oral once daily [Active]; sm5 - PMHx: 09/16 23:02 Anxiety; Hypertension; jb4 - PSHx: 23:02 None; jb4 - Immunization history:: Adult Immunizations not up to date. - Social history:: Smoking status: Patient denies any tobacco usage or history of. Screenin/12 03:10 Abuse screen: Denies threats or abuse. Denies injuries from another. Nutritional sm5 screening: No deficits noted. Tuberculosis screening: No symptoms or risk factors identified. Fall Risk None identified. Assessment: 03:00 General: Appears in no apparent distress. Behavior is cooperative. Pain: Denies pain. sm5 Neuro: Miranda Agitation-Sedation Scale (RASS): 0 - Alert and Calm Level of Consciousness is awake, alert, obeys commands, Oriented to person, place, time, situation. Cardiovascular: No deficits noted. Capillary refill < 3 seconds Patient's skin is warm and dry. Respiratory: Airway is patent Trachea midline Respiratory effort is even, unlabored, Breath sounds are clear bilaterally. EENT: Throat is clear. 04:00 Reassessment: No changes from previously documented assessment. Patient and/or family [facility] updated on plan of care and expected duration. Pain level reassessed. 05:00 Reassessment: No changes from previously documented assessment. Patient is alert, 5 oriented x 3, equal unlabored respirations, skin warm/dry/pink. 06:16 Reassessment: No changes from previously documented assessment. [facility] Vital Signs: 09/16 22:58 BP 116 / 78; Pulse 83; Resp 16; Temp 98.1(O); Pulse Ox 99% on R/A; Weight 81.65 kg (R); [facility] Height 5 ft. 7 in. (170.18 cm) (R); 09/17 01:20 BP 103 / 74; Pulse 58; Resp 18; Pulse Ox 99% on R/A; 5 03:00 BP 115 / 69; Pulse 64; Resp 19; Pulse Ox 100% on R/A; 5 03:00 BP 112 / 70; Pulse 61; Resp 17; Pulse Ox 98% on R/A; 5 09/16 22:58 Body Mass Index 28.19 (81.65 kg, 170.18 cm) 4 Louisa Coma Score: 06:07 Eye Response: spontaneous(4). Verbal Response: oriented(5). Motor Response: obeys [facility] commands(6). Total: 15. ED Course: 09/16 22:45 Patient arrived in ED. bp1 23:02 Triage completed. jb4 23:02 Arm band placed on right wrist. jb4 23:56 Charlee Mast RN is Primary Nurse. 5 23:56 Albino Andrade MD is Attending Physician. [facility] 09/17 01:40 XRAY Chest (1 view) In Process Unspecified. EDMS 01:46 CT Head Brain wo Cont In Process Unspecified. EDMS 02:30 Inserted saline lock: 22 gauge in right antecubital area, using aseptic technique. 5 Blood collected. 03:11 Patient has correct armband on for positive identification. Bed in low position. Call sm5 light in reach. Side rails up X2. 06:18 No provider procedures requiring assistance completed. IV discontinued, intact, sm5 bleeding controlled, No redness/swelling at site. Pressure dressing applied. Administered Medications: 02:10 Drug: NS 0.9% 1000 ml Route: IV; Rate: 1000 ml; Site: right antecubital; ll3 Medication: 06:18 VIS not applicable for this client. 5 Outcome: 06:09 Discharge ordered by . edgardo 06:18 Discharged to home ambulatory. 5 06:18 Condition: stable 06:18 Discharge instructions given to patient, Instructed on discharge instructions, follow up and referral plans. Demonstrated understanding of instructions, follow-up care. 06:18 Patient left the ED. 5 Signatures: Dispatcher [employer] EDMS Ori Talbert RN RN jb4 Nae Valerio Maurice, MD MD 7 Morgan Galvan RN RN 3 Charlee Mast RN RN 5
[2021-09-17 06:27] VITALS: TEMP 98.1
[2021-09-17 06:30] VITALS: BP 112/70; O2SAT 98
--- NOTE | 2021-09-18 13:36 | EKG ---
Test Date: 2021-09-17 Test Time: 02:10:52 Pvc Loader: TJ MEASUREMENT RESULTS: Intervals: Rate: 51 ME: 162 QRSD: 74 QT: 414 QTc: 381 [place]: P: 33 ME: 162 QRS: 68 T: 51 INTERPRETIVE STATEMENTS: Sinus bradycardia Otherwise normal ECG Compared to ECG 06/28/2021 19:54:05 Sinus rhythm no longer present Electronically Signed On 09-18-21 13:34:24 CDT by Caden Chopra
--- NOTE | 2021-09-18 14:45 | RAD REPORT ---
EXAM DESCRIPTION: RAD - Chest Single View - 09/17/2021 1:38 am CLINICAL HISTORY: 46 years, Male, CONGESTION COMPARISON: None. FINDINGS: Single view of the chest was obtained portable. No prior films are available for compariso n. The cardiomediastinal silhouette demonstrate to be unremarkable. The heart is not enlarged. The thoracic aorta is unremarkable. Costophrenic angles are sharp. No areas of consolidation or masses are seen. The rest of the soft tissue and bony structures demonstrate to be unremarkable. IMPRESSION: No acute cardiopulmonary disease is seen. Electronically signed by: Hugo Zabala MD 09/17/2021 1:44 AM CDT Due to temporary technical issues with the PACS/Fluency reporting system, reports are being signed by the in house radiologist without review as a courtesy to ensure prompt reporting. The interpreting r adiologist is fully responsible for the content of the report.
--- NOTE | 2021-09-18 14:46 | RAD REPORT ---
EXAM DESCRIPTION: CT - Head Brain Wo Cont - 09/17/2021 4:18 am CLINICAL HISTORY: 46 years, Male, Headache, tension-type COMPARISON: 06/28/2021 FINDINGS: Multiple transaxial tomograms of the brain were obtained from the base of the skull to the vertex without contrast. 2-D multiplanar reformats and the coronal and sagittal plane were performed and reviewed. This exam was performed according to our departmental dose-optimization protocol, which includes auto mated exposure control, adjustment of the mA and/or kV according to patient size and/or use of iterat alvaro reconstruction technique. Brain parenchyma as well as the early and white matter differentiation demonstrate to be unremarkable. There is no midline shift and/or mass effect. There is no evidence for acute hemorrhage. No focal ar eas of hypodensities. Lateral ventricles and cisterns displace normal appearance. No intra or ext ra axial fluid collections were seen. The calvarium is intact with no evidence for fracture. The visu alized portions of the paranasal sinuses and orbits demonstrate to be clear. IMPRESSION: No acute intracranial hemorrhage identified. Unremarkable CT scan of the head without contrast. No significant interval change in comparison with prior study. Electronically signed by: Hugo Zabala MD 09/17/2021 2:08 AM CDT Due to temporary technical issues with the PACS/Fluency reporting system, reports are being signed by the in house radiologist without review as a courtesy to ensure prompt reporting. The interpreting r adiologist is fully responsible for the content of the report.
== END 2021-09-17 06:18 | disposition home or self-care (01) ==
LOC: ER 22:41
DX: R51.9 Headache, unspecified (principal); R42 Dizziness and giddiness; I10 Essential (primary) hypertension; F41.9 Anxiety disorder, unspecified
CPT/HCPCS: 36415; 70450; 71045; 80048; 80076; 80307; 80320; 80329; 81003; 83735; 83880; 84484; 85025; 85610; 87070; 87081; 87804; 93005; 99284; J7030; U0003

== ENCOUNTER 2022-09-18 08:22 | Day surgery (SDC) | payer SELFPAY ==
[2022-09-13 11:26] LABS: Absolute Lymphocytes (CBC) 2.6 K/uL (0.7-4.9); Hematocrit 46.3 % (39.6-49.0); Lymphocytes % 37.3 % (15.3-44.8); MCV 94.4 fL (80-100); MPV 9.9 fL (7.6-11.3); Potassium 4.1 mEq/L (3.5-5.1)
[2022-09-13 11:28] LABS: Specific Gravity 1.027 (1.005-1.030); Urine Bacteria None Seen /HPF (<20); Urine Bilirubin NEGATIVE (Negative); Urine Blood Negative (Negative); Urine Clarity Turbid (Clear); Urine Color Yellow (Yellow); Urine Glucose NEGATIVE (Negative); Urine Mucus 1+ /HPF (None Seen); Urine Protein TRACE (Negative); Urine RBC <5 /HPF (None Seen); Urine Urobilinogen Normal (Normal)
[2022-09-13 11:31] LABS: Protime INR 0.91
--- NOTE | 2022-09-14 14:49 | EKG ---
Test Date: 2022-09-13 Test Time: 10:58:34 Airline Lounge Receptionist: SANNA MEASUREMENT RESULTS: Intervals: Rate: 64 SD: 168 QRSD: 82 QT: 362 QTc: 373 [place]: P: 47 SD: 168 QRS: 90 T: 6 INTERPRETIVE STATEMENTS: Normal sinus rhythm Rightward axis Borderline ECG Compared to ECG 09/17/2021 02:10:52 Right-axis deviation now present Sinus bradycardia no longer present Electronically Signed On 09-14-22 14:44:47 CDT by Derek Amaro
[2022-09-18] MEDS ORDERED: CEFAZOLIN SODIUM 2 GM/VIAL ONE (08:44)
[2022-09-18] MEDS ORDERED: Ringers Lactate 1,000 ML IV ONE ×2 (08:44→12:36)
[2022-09-18] MEDS ORDERED: BACITRACIN OINTMENT 14 GM TUBE TOP ONE (09:25)
[2022-09-18] MEDS: BUPIVACAINE 0.25% PF 30 ML VIAL ONE ×2 (09:35→12:07)
[2022-09-18] MEDS: LIDOCAINE 1% MPF 30 ML VIAL ONE ×2 (09:36→12:07)
[2022-09-18] MEDS ORDERED: MIDAZOLAM HCL 2 MG/2 ML INJ ONE (09:41)
[2022-09-18] MEDS ORDERED: FENTANYL CITR 100 MCG/2 ML ONE (09:41)
[2022-09-18] MEDS ORDERED: propofoL 200 MG/20 ML VIAL IV ONE (09:41)
[2022-09-18] MEDS ORDERED: LIDOCAINE 2% MPF 5 ML VIAL ONE (09:42)
[2022-09-18] MEDS ORDERED: ONDANSETRON 4 MG/2 ML VIAL ONE (11:56)
[2022-09-18] MEDS ORDERED: dexAMETHasone 10 MG/ML VIAL ONE (11:57)
[2022-09-18] MEDS ORDERED: CODEINE 30MG/APAP 300MG TAB PO PRN (12:47)
[2022-09-18 13:06] VITALS: O2SAT 100
--- NOTE | 2022-09-18 13:47 | OP ---
Surgeon: BRIDGER DOMINGUEZ Preoperative Diagnoses: 1.Phimosis. 2.Balanitis xerotica obliterans. Postoperative Diagnoses: 1.Phimosis. 2.Balanitis xerotica obliterans. Principal Procedures: 1.Penile block. 2.Dorsal slit. 3.Circumcision. Indication For Procedure: Mr. Valenzuela presented to the [facility]rology [facility] with recurrent episodes of post hitis resulting in dense phimosis, unable to retract the foreskin. He had evidence of BXO related ch anges, and was counseled that this was a premalignant lesion and recommended for circumcision. Procedure In Detail: The patient was consented in the preoperative holding area before being transfe rred to the operative suite, where general anesthesia was induced. He was given Ancef 2 g IV antimic robial prophylaxis and pneumo boots were provided for DVT prophylaxis. He was placed supine on the p rocedure table, and his genitalia was shaved at the base of the penis, prepped with Betadine, and pat ped in standard fashion. The case was begun using a mixture of 1% lidocaine and 4% Marcaine in a 50: 50 mixture to instill in the infrapubic region and in the region of the neurovascular bundles bilater ally, injecting a total of 30 cc of the mixture to generate a penile block. An additional frenular b lock was also performed. Once this was done, I marked a line within the shaft skin at the base of th e romero of the glans circumferentially and incised that line, deepened through the subcutaneous tiss ues and the dartos layers. I then utilized a straight clamp to clamp an area of the dorsal foreskin that was densely phimotic and used some Q-Tips with Betadine on it to prep the skin and glans beneath . I then divided the clamped tissue in order to retract the prepuce. I then marked the preputial ma rgin leaving about a 1 cm margin of tissue circumferentially before removing the intervening foreskin by dividing the skin dorsally and releasing the remainder of the skin from the subcutaneous dartos a nd [place]'s fascia layers. Once the skin was removed circumferentially using electrocautery, I then ir rigated the tissues and searched the area for any bleeding or slightly oozing vessels. This was pinp oint fulgurated using Adson forceps and electrocautery, and once completely hemostatic, I then began the reconstruction. Using 3-0 chromic dipped in bacitracin, I placed 4 quadrant sutures dorsally, ve ntrally, and in the left and the right regions of the foreskin, bringing those areas together in an i nterrupted fashion. The intervening tissues were then closed using a running horizontal mattress sut ure until the end cosmetic result was excellent. The area was then wiped free of the Betadine, bacit racin was applied to the circumcision line, and a Julia and Coban dressing were applied for gentle pr essure application. Bacitracin was applied to the glans penis, and the patient was awakened from gen eral anesthesia before being transferred to a stretcher, and then, transferred to the recovery room i n good condition. Complications: None. Discharge Disposition: He should follow up in the Urology clinic somewhere between the next 3-6 week s interval assessment and to discuss the results of the pathology. TOMMIE/[email or web address] Voice ID: [id number] Report ID: [id number]
[2022-09-18] MEDS ORDERED: CODEINE 30MG/APAP 300MG TAB ONE (13:51)
[2022-09-18 14:28] VITALS: BP 104/61; TEMP 97.1
== END 2022-09-18 14:22 | disposition home or self-care (01) ==
LOC: OR 08:22
PROVIDERS: ATTEND Urology
PROC: 0VTTXZZ Resection of Prepuce, External Approach (ICD-10-PCS; principal; 2022-09-18 10:15)
DX: N47.1 Phimosis (principal); N48.0 Leukoplakia of penis; I10 Essential (primary) hypertension; F32.A Depression, unspecified
CPT/HCPCS: 93005; 85025; 81001; 80048; 36415; 85610; 88304; 54150; J2704; J2001 ×2; J2250; J3010; J1100; J2405; J7120 ×2